=== PATIENT | female | born 1940 | race Caucasian/White ===

== ENCOUNTER 2017-11-06 13:20 | Emergency (ER) | payer MEDICARE ==
--- OUTSIDE RECORDS SUMMARY | 2017-11-06 14:36 | XMS REPORT ---
:1940 External Reference #:[id number] Author Organization [employer] [facility] Address [address] [address] Phone [phone] Care Team Providers Name Role Phone Lea Kennedy MD Primary Care Physician Unavailable Payers Type Date Identification Payment Subscriber Numbers Provider Health Maintenance Expires: Policy Number: Medicare [employer] ([facility] [place] 11/16/2012 [id number] [facility] PayID: [id number] [address] [address] [place] [id number] Health Maintenance Effective: Policy Number: Medicare [employer] ([employer]) 11/17/2012 [id number] [facility] Group Number: [id number] [address] [address] PayID: [id number] [place] [id number] Problems Date Description Provider Status Onset: 03/04/2012 Morbid obesity Dom Dotson M.D. Active Onset: 03/04/2012 Dyspnea Dom Dotson M.D. Active Onset: 03/10/2014 Mitral valve disorder Dom Dotson M.D. Active Onset: 03/10/2014 Coronary atherosclerosis Dom Dotson M.D. Active Onset: 09/26/2015 Essential hypertension Dom Dotson M.D. Active Onset: 04/02/2017 Encounter for planned Hector Watkins M.D., [facility], Active postprocedural wound closure [facility] Onset: 03/04/2012 Dyssomnia Dom Dotson M.D. Inactive Inactive: 09/26/2015 Onset: 03/04/2012 Benign essential hypertension Dom Dotson M.D. Inactive Inactive: 09/26/2015 Social History Type Date Description Comments Marital Status Lives With Alone Occupation Retired Cigarette Use Former Cigarette Smoker Smoked for one year, then quit. ETOH Use Denies alcohol use Smoking Patient is a former smoker for a few years in teenage years Recreational Drug Use Denies Drug Use Daily Caffeine 4 cups of iced/hot decaff tea daily Exercise Type/Frequency Exercises sporadically Allergies, Adverse Reactions, Alerts Date Description Reaction Status Severity Comments 08/17/2010 Tetracycline active 08/17/2010 Cipro active 08/17/2010 Niacin active 08/17/2010 Amoxicillin active 08/17/2010 Biaxin active 08/17/2010 Codeine active 08/17/2010 Ceftin active 08/17/2010 Primaxin active 08/17/2010 Zithromax active 08/17/2010 Gentamicin active 02/06/2011 Lisinopril cough active 07/01/2011 Pravastatin myalgias active 07/01/2011 Zocor active myalgias fatigue 10/16/2015 Carvedilol Nausea and Vomiting active Medications Medication Date Status Form Strength Qnty SIG Indications Ordering Provider Rosuvastatin 10/14 Active Tablets 5mg 30tab 1 tab by E78.5 Dom s mouth 5 mg F. Mon, Fri, Fri Nila, in pm only M.D. Oxygen 07/09 Active Misc 1unit please use o2 s at 2l/min [place], with MD hanna, pls provide pt with portable O2 concentrator Advair HFA 07/02 Active Aerosol 115-21mcg 24uni 2 puff twice Tessa /2017 /Act ts a day MD [place] Labetalol HCL 04/03 Active Tablets 100mg 60tab 1/2 by mouth Dom s twice a day Ellen Dotson M.D. Inspra 10/21 Active Tablets 25mg 60tab 1 by mouth I10 Dom s twice a day Ellen Dotson M.D. Aspir-81 08/[address] 81mg 30tab 1 po qd s FKamille Dotson M.D. Advair Diskus Active Aerosol 100-50mcg 1unit 1 inhalation Unknown / /Dose s twice daily as needed Levalbuterol Active Nebulizer 1.25mg/3M Via nebulizer Unknown HCL / L every 4-6 hoursas needed Diltiazem HCL Active Caps ER 120mg 90cap 1 cap by Dom ER Coated Beads / 24HR s mouth twice a . day Qiana Dotson Albuterol Active as needed Unknown Sulfate Inhaler / rescue inhaler Nitro-Dur 03/18 Hx Patches 0.2mg/HR 30uni 1 patch every 24HR ts day on in the F. - in the [place], 04/02 morning, off .D in the at night Inspra 10/16 Hx Tablets 25mg 180ta 2 by mouth I1 bs every . - day(patient Nila, 10/21 cut Inspra back to 1 daily) Metoprolol 10/10 Hx Tablets 25mg 180ta 1 by mouth Dom Tartrate bs twice a day F. - Nila, 10/09.D Toprol XL 10/10 Hx Tablets ER 25mg 90tab 1 tab once a 24HR s day F. - Nila, 04/03 M.D. Carvedilol 09/26 Hx Tablets 6.25mg 180ta 1 by mouth I10 bs twice a day F. - Nila, 10/06 M.D. Diltiazem HCL 03/10 Hx Caps ER 360mg 1 by mouth Dom CD 24HR every day F. - Nila, 03/10 M.D. Diltiazem HCL 03/10 Hx Caps ER 120mg 100ca 2 by mouth Dom ER 24HR ps each morning F. - and one each Causeshanna, 09/25 evening M.D. Albuterol 01/20 Hx Nebulizer (2.5mg/3M 100un 1 vial via Other L) 0.083% its nebulizer 4 Ordering - times daily Provider 09/25 as needed Diltiazem CD 08/05 Hx Caps ER 120mg 100ca 2 po qam 24HR ps Ellen Dotson, 03/10 M.D. Diltiazem CD 03/04 Hx Caps ER 120mg 1 po bid 24HR Ellen Dotson, 08/05 M.D. Spironolactone 03/04 Hx Tablets 25mg 90tab 1 po qd s Kamille Dotson, 08/05 M.D. Toprol XL 11/15 Hx Tablets ER 25mg 100ta 1 by mouth I10 24HR bs twice a day Ellen Dotson, 09/26 M.D. Losartan 08/05 Hx Tablets 25mg 100ta 1 po daily bs Ellen Dotson, 11/13 M.D. Losartan 07/01 Hx Tablets 50mg 60tab s Kamille Dotson, 08/05 M.D. Losartan 06/13 Hx Tablets 50mg 1 po qd . Fan Dotson, 07/01 M.D. Diltiazem CD 06/06 Hx Caps ER 120mg 90cap 2 po qam and 24HR s 1 qpm Ellen Dotson, 03/04 M.D. Losartan 06/06 Hx Tablets 25mg 30tab one po qd s . Fan Dotson, 06/13 M.D. Pravachol 05/21 Hx Tablets 10mg 30tab 1 po qd s . - Nial, 06/06 M.D. Lipitor 05/02 Hx Tablets 10mg 15tab 1/2 tablet s po qhs . Fan Dotson, 05/21 M.D. Diltiazem CD 04/11 Hx Caps ER 120mg 60cap 2 po qd 24HR s Kamille Dotson, 04/11 M.D. Zocor 04/11 Hx Tablets 10mg 60tab 2 po qhs s Ellen Dotson, 04/11 M.D. Losartan 04/11 Hx Tablets 50mg 100ta 1 po qd bs Ellen Dotson, 06/06.D Diltiazem CD 04/11 Hx Caps ER 120mg 180ca 2 tabs in the 24HR ps am Ellen Dotson, 06/06.D Zocor 02/06 Hx Tablets 10mg 30tab 1 po hs s Ellen Dotson, 04/11. Losartan 02/06 Hx Tablets 50mg 100ta 1 po qd bs Ellen Dotson, 04/11.D Lisinopril 01/25 Hx Tablets 5mg 30tab 1 po qd s Ellen Dotson, 02/06.D Diltiazem CD 08/24 Hx Caps ER 120mg 30cap 1 po qd 24HR s Ellen Dotson, 04/11.D Avapro 08/17 Hx Tablets 75mg 30tab 1 po qa s Ellen Dotson, 08/24. Norvasc Hx Tablets 5mg 30tab 1 po qd Unknown /0000 s - 08/24 Xponex Inhaler Hx use as Unknown /0000 directed - 09/[address] 40mg 100ta 1 po qd prn Unknown /0000 bs - 09/21 Xopenex Hx Nebulizer 1Mont 1 vial via Unknown /0000 Garvey nebulizer - inhalation 01/20 tid prn /2012 Vital Signs Date Vital Result Comment 10/14/2017 Height 67 inches 5'7" Weight 227.75 lb with shoes Heart Rate 70 /min BP Systolic Sitting 138 mmHg Lue lg cuff BP Diastolic Sitting 80 mmHg Lue lg cuff BP Systolic Standing 130 mmHg Lue lg cuff BP Diastolic Standing 80 mmHg Lue lg cuff Respiratory Rate 17 /min BMI (Body Mass Index) 35.7 kg/m2 Ejection Fraction 60-65% date 06/30/17 ECHO 09/02/2017 Height 67 inches 5'7" Weight 237.00 lb with shoes Heart Rate 70 /min BP Systolic Sitting 180 mmHg LA reg cuff BP Diastolic Sitting 96 mmHg LA reg cuff BMI (Body Mass Index) 37.1 kg/m2 Ejection Fraction 60%-65% echo 06/30/17 07/29/2017 Height 67 inches 5'7" Weight 242.00 lb Heart Rate 84 /min BP Systolic Sitting 124 mmHg BP Diastolic Sitting 68 mmHg Respiratory Rate 16 /min Pain Level 0 O2 % BldC Oximetry 95 % BMI (Body Mass Index) 37.9 kg/m2 06/23/2017 Height 67 inches 5'7" Weight 242.00 lb Heart Rate 76 /min BP Systolic Sitting 166 mmHg BP Diastolic Sitting 94 mmHg Respiratory Rate 20 /min O2 % BldC Oximetry 95 % room air BMI (Body Mass Index) 37.9 kg/m2 Neck Circumference in inches 16.25 06/12/2017 Height 67 inches 5'7" Weight 239.00 lb no shoe Heart Rate 68 /min BP Systolic Sitting 144 mmHg BP Diastolic Sitting 82 mmHg Respiratory Rate 20 /min BMI (Body Mass Index) 37.4 kg/m2 Ejection Fraction 60-65% 10/23/2016-echo 04/07/2017 Height 67 inches 5'7" Weight 242.25 lb Heart Rate 86 /min BP Systolic 161 mmHg LA home cuff BP Diastolic 75 mmHg LA home cuff BP Systolic Sitting 160 mmHg LA lrg office cuff BP Diastolic Sitting 72 mmHg LA lrg office cuff BMI (Body Mass Index) 37.9 kg/m2 Ejection Fraction 65% - 70% cardiac catheterization 03/28/17 04/02/2017 Height 67 inches 5'7" Weight 241.00 lb w/o shoes Heart Rate 70 /min reg BP Systolic Sitting 200 mmHg Rue, reg cuff BP Diastolic Sitting 100 mmHg Rue, reg cuff BP Systolic Standing 204 mmHg Rue BP Diastolic Standing 104 mmHg Rue Respiratory Rate 14 /min BMI (Body Mass Index) 37.7 kg/m2 Ejection Fraction 60-65% as of 10/23/16 echo 12/24/2016 Height 67 inches 5'7" Weight 231.00 lb with out shoes Heart Rate 80 /min BP Systolic Sitting 140 mmHg Lue lg cuff BP Diastolic Sitting 70 mmHg Lue lg cuff BP Systolic Standing 138 mmHg Lue lg cuff BP Diastolic Standing 76 mmHg Lue lg cuff Respiratory Rate 17 /min BMI (Body Mass Index) 36.2 kg/m2 Ejection Fraction 60-65% date 10/23/16 ECHO 12/03/2016 Height 67 inches 5'7" Weight 231.00 lb Heart Rate 84 /min BP Systolic Sitting 178 mmHg LA large cuff BP Diastolic Sitting 86 mmHg LA large cuff BP Systolic Standing 178 mmHg LA BP Diastolic Standing 86 mmHg LA Respiratory Rate 16 /min BMI (Body Mass Index) 36.2 kg/m2 Ejection Fraction 60-65% 10/23/16 10/21/2016 Height 67 inches 5'7" Weight 228.50 lb no shoes Heart Rate 86 /min BP Systolic Sitting 154 mmHg Rue lrg cuff BP Diastolic Sitting 84 mmHg Rue lrg cuff BP Systolic Standing 160 mmHg Rue lrg cuff BP Diastolic Standing 86 mmHg Rue lrg cuff Respiratory Rate 20 /min BMI (Body Mass Index) 35.8 kg/m2 Ejection Fraction 60-65% 03/18/2014 04/16/2016 Height 67 inches 5'7" Weight 233.00 lb w/ shoes Heart Rate 18 /min reg BP Systolic Sitting 162 mmHg Rue, reg cuff BP Diastolic Sitting 86 mmHg Rue, reg cuff BP Systolic Standing 166 mmHg Rue BP Diastolic Standing 86 mmHg Rue Respiratory Rate 24 /min BMI (Body Mass Index) 36.5 kg/m2 Ejection Fraction 60-65% as of 03/18/14 echo 01/03/2016 Height 67 inches 5'7" Weight 234.00 lb w/o shoes Heart Rate 84 /min BP Systolic Sitting 152 mmHg LA reg cuff BP Diastolic Sitting 82 mmHg LA reg cuff BMI (Body Mass Index) 36.6 kg/m2 Ejection Fraction 60-65 echo 03/18/14 12/04/2015 Height 67 inches 5'7" Weight 234.00 lb no shoes Heart Rate 82 /min BP Systolic Sitting 186 mmHg Ra reg cuff BP Diastolic Sitting 88 mmHg Ra reg cuff BP Systolic Standing 182 mmHg BP Diastolic Standing 86 mmHg Respiratory Rate 16 /min BMI (Body Mass Index) 36.6 kg/m2 Ejection Fraction 60-65% 03/18/14 11/01/2015 Height 67 inches 5'7" Weight 234.00 lb Heart Rate 84 /min BP Systolic 188 mmHg Ra large cuff BP Diastolic 94 mmHg Ra large cuff BP Systolic Sitting 174 mmHg LA large cuff recheck BP Diastolic Sitting 88 mmHg LA large cuff recheck BP Systolic Standing 166 mmHg LA BP Diastolic Standing 82 mmHg LA Respiratory Rate 16 /min BMI (Body Mass Index) 36.6 kg/m2 Ejection Fraction 60-65% 03/18/14 10/16/2015 Height 67 inches 5'7" Weight 231.00 lb w/o shoes Heart Rate 80 /min reg BP Systolic Sitting 156 mmHg Rue, lg cuff BP Diastolic Sitting 90 mmHg Rue, lg cuff BP Systolic Standing 154 mmHg Rue BP Diastolic Standing 88 mmHg Rue Respiratory Rate 18 /min BMI (Body Mass Index) 36.2 kg/m2 Ejection Fraction 60-65% as of 03/18/14 echo 09/26/2015 Height 67 inches 5'7" Weight 228.75 lb without shoes Heart Rate 72 /min BP Systolic Sitting 172 mmHg LA lg cuff BP Diastolic Sitting 86 mmHg LA lg cuff Respiratory Rate 17 /min BMI (Body Mass Index) 35.8 kg/m2 Ejection Fraction 60-65% date 03/18/14 ECHO 03/10/2014 Height 67 inches 5'7" Weight 234.00 lb Heart Rate 76 /min BP Systolic Sitting 158 mmHg left arm, large cuff BP Diastolic Sitting 90 mmHg left arm, large cuff BP Systolic Standing 160 mmHg left arm, large cuff BP Diastolic Standing 90 mmHg left arm, large cuff Respiratory Rate 20 /min BMI (Body Mass Index) 36.6 kg/m2 10/21/2013 Height 67 inches 5'7" Weight 234.00 lb Heart Rate 1 /min BP Systolic Sitting 180 mmHg repeat 148/94 BP Diastolic Sitting 94 mmHg repeat 148/94 BMI (Body Mass Index) 36.6 kg/m2 01/20/2013 Height 67 inches 5'7" Weight 228.00 lb Heart Rate 74 /min BP Systolic 150 mmHg BP Diastolic 82 mmHg Respiratory Rate 18 /min O2 % BldC Oximetry 94 % BMI (Body Mass Index) 35.7 kg/m2 09/07/2012 Height 67 inches 5'7" Weight 229.00 lb Heart Rate 76 /min Regular BP Systolic Sitting 170 mmHg BP Diastolic Sitting 80 mmHg BP Systolic Recheck 150 mmHg BP rechecked by HASHER MACHINE OPERATOR BP Diastolic Recheck 76 mmHg BP rechecked by HASHER MACHINE OPERATOR BMI (Body Mass Index) 35.9 kg/m2 08/05/2012 Height 67 inches 5'7" Weight 229.00 lb Heart Rate 80 /min BP Systolic Sitting 208 mmHg BP Diastolic Sitting 104 mmHg Respiratory Rate 20 /min BMI (Body Mass Index) 35.9 kg/m2 04/01/2012 Height 67 inches 5'7" Weight 228.00 lb Heart Rate 88 /min regular BP Systolic Sitting 158 mmHg BP Diastolic Sitting 90 mmHg BP Systolic Recheck 148 mmHg Pulse 72 and regular/repeated by HASHER MACHINE OPERATOR BP Diastolic Recheck 70 mmHg Pulse 72 and regular/repeated by HASHER MACHINE OPERATOR BMI (Body Mass Index) 35.7 kg/m2 03/04/2012 Height 67 inches 5'7" Weight 231.00 lb Heart Rate 74 /min BP Systolic 170 mmHg BP Diastolic 70 mmHg Respiratory Rate 16 /min BMI (Body Mass Index) 36.2 kg/m2 11/08/2011 Height 67 inches 5'7" Weight 226.00 lb Heart Rate 76 /min BP Systolic 154 mmHg BP Diastolic 82 mmHg BMI (Body Mass Index) 35.4 kg/m2 07/01/2011 Height 67 inches 5'7" Weight 225.00 lb Heart Rate 80 /min BP Systolic Sitting 166 mmHg BP Diastolic Sitting 70 mmHg BP Systolic Standing 156 mmHg HR=80 BP Diastolic Standing 74 mmHg HR=80 BMI (Body Mass Index) 35.2 kg/m2 04/11/2011 Height 67 inches 5'7" Weight 228.00 lb Heart Rate 76 /min BP Systolic Sitting 184 mmHg BP Diastolic Sitting 76 mmHg BMI (Body Mass Index) 35.7 kg/m2 01/25/2011 Height 67 inches 5'7" Weight 228.00 lb Heart Rate 72 /min BP Systolic Sitting 184 mmHg BP Diastolic Sitting 70 mmHg BMI (Body Mass Index) 35.7 kg/m2 09/04/2010 Height 67 inches 5'7" Weight 240.00 lb Heart Rate 84 /min BP Systolic Sitting 198 mmHg BP Diastolic Sitting 88 mmHg BMI (Body Mass Index) 37.6 kg/m2 08/17/2010 Height 67 inches 5'7" Weight 241.00 lb Heart Rate 78 /min BP Systolic Sitting 164 mmHg L BP Diastolic Sitting 98 mmHg L O2 % BldC Oximetry 96 % BMI (Body Mass Index) 37.7 kg/m2 Results Test Date Test Result H/L Range Note Cath Panel 03/26/2017 Partial Thrombo Time PTT 30.0 seconds 26.0-36.3 CBC Auto Diff 03/26/2017 White Blood Count 7.8 10^3/uL 3.5-10.8 Red Blood Count 4.98 10^6/uL 4.0-5.4 Hemoglobin 14.9 g/dL 12.0-16.0 Hematocrit 46 % 35-47 Mean Corpuscular Volume 91 fL 80-97 Mean Corpuscular Hemoglobin 30 pg 27-31 Mean Corpuscular HGB Conc 33 g/dL 31-36 Red Cell Distribution Width 13 % 10.5-15 Platelet Count 275 10^3/uL 150-450 Mean Platelet Volume 9 um3 7.4-10.4 Abs Neutrophils 4.2 10^3/uL 1.5-7.7 Abs Lymphocytes 2.3 10^3/uL 1.0-4.8 Abs Monocytes 1.0 10^3/uL High 0-0.8 Abs Eosinophils 0.4 10^3/uL 0-0.6 Abs Basophils 0.1 10^3/uL 0-0.2 Abs Nucleated RBC 0.03 10^3/uL Granulocyte % 53.0 % 38-83 Lymphocyte % 28.9 % 25-47 Monocyte % 12.4 % High 1-9 Eosinophil % 5.0 % 0-6 Basophil % 0.7 % 0-2 Nucleated Red Blood Cells % 0.4 Inr/Protime 03/26/2017 Inr 0.96 0.89-1.11 Laboratory test finding 03/26/2017 B-Type Natriuretic 68 pg/mL 1 Peptide BNP Lipid Panel - [facility] 03/26/2017 Creatine Kinase(CK) 68 U/L 10-223 2 Comp Metabolic Panel 03/26/2017 Sodium 139 mmol/L 133-145 Potassium 4.4 mmol/L 3.5-5.0 Chloride 105 mmol/L 101-111 Co2 Carbon Dioxide 28 mmol/L 22-32 Anion Gap 6 mmol/L 2-11 Glucose 94 mg/dL 70-100 Blood Urea Nitrogen 15 mg/dL 6-24 Creatinine 0.57 mg/dL 0.51-0.95 BUN/Creatinine Ratio 26.3 High 8-20 Calcium 9.6 mg/dL 8.6-10.3 Total Protein 7.3 g/dL 6.4-8.9 Albumin 4.1 g/dL 3.2-5.2 Globulin 3.2 g/dL 2-4 Albumin/Globulin Ratio 1.3 1-3 Total Bilirubin 1.70 mg/dL High 0.2-1.0 Alkaline Phosphatase 65 U/L 34-104 Alt 26 U/L 7-52 Ast 27 U/L 13-39 Egfr Non- 102.8 >60 Egfr 132.3 >60 3 Lipid Profile (Trig/Chol/HDL) 03/26/2017 Triglycerides 76 mg/dL 4 Cholesterol 146 mg/dL 5 HDL Cholesterol 44.4 mg/dL 6 LDL Cholesterol 86 mg/dL 7 Laboratory test finding 10/29/2016 B-Type Natriuretic 53 pg/mL 8 Peptide BNP CBC Auto Diff 10/29/2016 White Blood Count 8.0 10^3/uL 3.5-10.8 Red Blood Count 4.84 10^6/uL 4.0-5.4 Hemoglobin 14.5 g/dL 12.0-16.0 Hematocrit 44 % 35-47 Mean Corpuscular Volume 91 fL 80-97 Mean Corpuscular Hemoglobin 30 pg 27-31 Mean Corpuscular HGB Conc 33 g/dL 31-36 Red Cell Distribution Width 13 % 10.5-15 Platelet Count 272 10^3/uL 150-450 Mean Platelet Volume 9 um3 7.4-10.4 Abs Neutrophils 4.6 10^3/uL 1.5-7.7 Abs Lymphocytes 2.2 10^3/uL 1.0-4.8 Abs Monocytes 1.0 10^3/uL High 0-0.8 Abs Eosinophils 0.2 10^3/uL 0-0.6 Abs Basophils 0 10^3/uL 0-0.2 Abs Nucleated RBC 0.01 10^3/uL Granulocyte % 57.1 % 38-83 Lymphocyte % 26.8 % 25-47 Monocyte % 12.5 % High 1-9 Eosinophil % 3.1 % 0-6 Basophil % 0.5 % 0-2 Nucleated Red Blood Cells % 0.1 Lipid Panel - [facility] 10/29/2016 Creatine Kinase(CK) 59 U/L 10-223 9 Comp Metabolic Panel 10/29/2016 Sodium 138 mmol/L 133-145 Potassium 4.3 mmol/L 3.5-5.0 Chloride 104 mmol/L 101-111 Co2 Carbon Dioxide 30 mmol/L 22-32 Anion Gap 4 mmol/L 2-11 Glucose 94 mg/dL 70-100 Blood Urea Nitrogen 15 mg/dL 6-24 Creatinine 0.64 mg/dL 0.51-0.95 BUN/Creatinine Ratio 23.4 High 8-20 Calcium 9.8 mg/dL 8.6-10.3 Total Protein 7.2 g/dL 6.4-8.9 Albumin 4.1 g/dL 3.2-5.2 Globulin 3.1 g/dL 2-4 Albumin/Globulin Ratio 1.3 1-3 Total Bilirubin 1.80 mg/dL High 0.2-1.0 Alkaline Phosphatase 64 U/L 34-104 Alt 23 U/L 7-52 Ast 23 U/L 13-39 Egfr Non- 90.2 >60 Egfr 116.0 >60 10 Lipid Profile (Trig/Chol/HDL) 10/29/2016 Triglycerides 82 mg/dL 11 Cholesterol 141 mg/dL 12 HDL Cholesterol 48.1 mg/dL 13 LDL Cholesterol 77 mg/dL 14 Laboratory test finding 10/29/2016 Magnesium 2.0 mg/dL 1.9-2.7 15 Basic Metabolic Panel 05/07/2016 Sodium 140 mmol/L 133-145 Potassium 4.1 mmol/L 3.5-5.0 Chloride 108 mmol/L 101-111 Co2 Carbon Dioxide 25 mmol/L 22-32 Anion Gap 7 mmol/L 2-11 Glucose 89 mg/dL 70-100 Blood Urea Nitrogen 15 mg/dL 6-24 Creatinine 0.63 mg/dL 0.51-0.95 BUN/Creatinine Ratio 23.8 High 8-20 Calcium 9.4 mg/dL 8.6-10.3 Egfr Non- 91.9 >60 Egfr 118.2 >60 16 Basic Metabolic Panel 01/01/2016 Sodium 139 mmol/L 133-145 Chloride 105 mmol/L 101-111 Co2 Carbon Dioxide 26 mmol/L 22-32 Glucose 117 mg/dL High 70-100 Blood Urea Nitrogen 16 mg/dL 6-24 Creatinine 0.65 mg/dL 0.51-0.95 BUN/Creatinine Ratio 24.6 High 8-20 Calcium 9.6 mg/dL 8.6-10.3 Egfr Non- 88.6 >60 Egfr 114.0 >60 17 Potassium 4.2 mmol/L 3.5-5.0 Anion Gap 8 mmol/L 2-11 Basic Metabolic Panel 10/28/2015 Sodium 139 mmol/L 133-145 18 Potassium 4.1 mmol/L 3.5-5.0 18 Chloride 107 mmol/L 101-111 18 Co2 Carbon Dioxide 26 mmol/L 22-32 18 Anion Gap 6 mmol/L 2-11 18 Glucose 83 mg/dL 70-100 18 Blood Urea Nitrogen 18 mg/dL 6-24 18 Creatinine 0.59 mg/dL 0.51-0.95 18 BUN/Creatinine Ratio 30.5 High 8-20 18 Calcium 9.5 mg/dL 8.6-10.3 18 Egfr Non- 99.4 >60 18 Egfr 127.8 >60 18, 19 Comp Metabolic Panel 11/16/2013 Sodium 140 mmol/L 133-145 Potassium 4.3 mmol/L 3.5-5.0 Chloride 109 mmol/L 101-111 Co2 Carbon Dioxide 29.0 mmol/L 22-32 Anion Gap 2.0 mmol/L 2-11 Glucose 99 mg/dL 70-100 Blood Urea Nitrogen 11 mg/dL 6-24 Creatinine 0.60 mg/dL 0.50-1.40 BUN/Creatinine Ratio 18.3 8-20 Calcium 9.4 mg/dL 8.1-9.9 Total Protein 6.3 g/dL 6.2-8.1 Albumin 3.7 g/dL 3.2-5.2 Globulin 2.6 g/dL 2-4 Albumin/Globulin Ratio 1.4 1-3 Total Bilirubin 1.7 mg/dL High 0.4-1.5 Alkaline Phosphatase 71 U/L 30-110 Alt 31 U/L 14-54 Ast 37 U/L 12-42 Egfr Non- 98.0 >60 Egfr 126.0 >60 20 Laboratory test finding 11/16/2013 B Type Natriuretic 70.0 pg/mL 0-100 21 Peptide CBC Auto Diff 11/16/2013 White Blood Count 7.3 10^3/uL 4.8-10.8 Red Blood Count 4.52 10^6/uL 4.0-5.4 Hemoglobin 14.1 g/dL 12.0-16.0 Hematocrit 41 % 35-47 Mean Corpuscular Volume 91 fL 80-97 Mean Corpuscular Hemoglobin 31 pg 27-31 Mean Corpuscular HGB Conc 34 g/dL 31-36 Red Cell Distribution Width 13 % 10.5-15 Platelet Count 260 10^3/uL 150-450 Mean Platelet Volume 9 um3 7.4-10.4 Abs Neutrophils 3.9 10^3/uL 1.5-7.7 Abs Lymphocytes 2.0 10^3/uL 1.0-4.8 Abs Monocytes 0.9 10^3/uL High 0-0.8 Abs Eosinophils 0.4 10^3/uL 0-0.6 Abs Basophils 0.1 10^3/uL 0-0.2 Abs Nucleated RBC 0.01 10^3/uL Granulocyte % 53.1 % 38-83 Lymphocyte % 28.2 % 25-47 Monocyte % 12.6 % High 1-9 Eosinophil % 5.3 % 0-6 Basophil % 0.8 % 0-2 Nucleated Red Blood Cells % 0.1 Laboratory test finding 04/30/2013 Creatine Kinase 66 U/L 0-200 Lipid Profile (Trig/Chol/HDL) 04/30/2013 Triglycerides 103 mg/dL 40-200 Cholesterol 144 mg/dL Less than 200 HDL Cholesterol 42 mg/dL 40-60 22 Cholesterol/HDL Ratio 3.4 Average 1-4.44 LDL Cholesterol 81.4 Less Than 100 23 Comp Metabolic Panel 04/30/2013 Sodium 142 mmol/L 133-145 Potassium 4.2 mmol/L 3.5-5.0 Chloride 108 mmol/L 101-111 Co2 Carbon Dioxide 27.0 mmol/L 22-32 Anion Gap 7.0 mmol/L 2-11 Glucose 100 mg/dL 70-100 Blood Urea Nitrogen 12 mg/dL 6-24 Creatinine 0.60 mg/dL 0.50-1.40 BUN/Creatinine Ratio 20.0 8-20 Calcium 9.6 mg/dL 8.1-9.9 Total Protein 6.9 g/dL 6.2-8.1 Albumin 3.9 g/dL 3.2-5.2 Globulin 3.0 g/dL 2-4 Albumin/Globulin Ratio 1.3 1-3 Total Bilirubin 1.9 mg/dL High 0.4-1.5 Alkaline Phosphatase 71 U/L 30-110 Alt 34 U/L 14-54 Ast 36 U/L 12-42 Egfr Non- 98.0 >60 Egfr 126.0 >60 24 CBC Auto Diff 03/20/2012 White Blood Count 7.1 CUMM 4.8-10.8 Red Cell Count 4.41 CUMM 4.2-5.4 Hemoglobin 14.0 g/dL 12.0-16.0 Hematocrit 40 % 35-47 Mean Corpuscular Volume 91 um3 79-97 Mean Corpuscular Hemoglob 32 pg High 27-31 Mean Corpuscular HGB Cone 35 g/dL 32-36 Redcell Distribution WDTH 13 % 10.5-15 Platelet Count 265 CUMM 150-450 Mean Platelet Volume 9.3 um3 7.4-10.4 Gran % 53.8 % 38-83 Lymph % 28.8 % 25-47 Mononuclear % 11.2 % High 1-9 Eosinophil % 5.5 % 0-6 Basophil % 0.7 % 0-2 Abs Lymphs 2.1 1.0-4.8 Abs Mononuclear 0.8 0-0.8 Absolute Neutrophil Count 3.8 1.5-7.7 Abs Eosinophils 0.4 0-0.6 Abs Basophils 0 0-0.2 Laboratory test finding 03/20/2012 TSH 1.47 MIU/ML 0.34-5.60 Laboratory test finding 03/20/2012 CPK (Creatine Kinase) 93 U/L 0-170 Vitamin B12 And Folate 03/20/2012 Vitamin B12 180 pg/mL 180-914 Serum Folic Acid > 25.6 NG/ML See Below 25 Lipid Profile (Trig/Chol/HDL) 03/20/2012 Triglyceride 102 mg/dL 40-200 Cholesterol 152 mg/dL Less Than 200 26 High Density Lipoprotein 39 mg/dL Low 40-60 27 Cholesterol/HDL Ratio 3.90 AVERAGE 1-4.44 Low Density Lipoprotein 93 mg/dL Less Than 100 28 Comp Metabolic Panel 03/20/2012 Sodium 140 mmol/L 135-145 Potassium 4.0 mmol/L 3.5-5.0 Chloride 108 mmol/L 101-111 Co2 (Carbon Dioxide) 28.0 mmol/L 22-32 Anion Gap 4.0 mmol/L 2-11 29 Glucose 103 mg/dL High 70-100 BUN 12 mg/dL 6-24 Creatinine 0.6 mg/dL 0.50-1.40 One Over Creatinine 1.66 BUN/Creatinine Ratio 20.0 8-20 Calcium 9.4 mg/dL 8.1-9.9 Total Protein 6.9 GM/DL 6.2-8.1 Albumin 4.1 GM/DL 3.2-5.2 Globulin 2.8 GM/DL 2-4 Albumin/Globulin Ratio 1.5 1-3 Bilirubin Total 2.3 mg/dL High 0.4-1.5 30 Alkaline Phosphatase 67 U/L 30-110 Alt (SGPT) 28 U/L 14-54 Ast (Sgot) 29 U/L 12-42 eGFR Non- 98.3 > 60 eGFR 126.4 > 60 31 Lipid Panel - [facility] 06/28/2011 CPK (Creatine Kinase) 58 U/L 0-170 Comp Metabolic Panel 06/28/2011 Sodium 142 mmol/L 135-145 Potassium 4.8 mmol/L 3.5-5.0 Chloride 106 mmol/L 101-111 Co2 (Carbon Dioxide) 30.0 mmol/L 22-32 Anion Gap 6.0 mmol/L 2-11 32 Glucose 98 mg/dL 70-100 BUN 16 mg/dL 6-24 Creatinine 0.70 mg/dL 0.50-1.40 One Over Creatinine 1.40 BUN/Creatinine Ratio 22.9 High 8-20 Calcium 9.8 mg/dL 8.1-9.9 Total Protein 7.1 GM/DL 6.2-8.1 Albumin 4.0 GM/DL 3.2-5.2 Globulin 3.1 GM/DL 2-4 Albumin/Globulin Ratio 1.3 1-3 Bilirubin Total 1.9 mg/dL High 0.4-1.5 33 Alkaline Phosphatase 73 U/L 30-110 Alt (SGPT) 25 U/L 14-54 Ast (Sgot) 27 U/L 12-42 eGFR Non- 82.5 > 60 eGFR 106.1 > 60 34 Lipid Profile (Trig/Chol/HDL) 06/28/2011 Triglyceride 107 mg/dL 40-200 Cholesterol 153 mg/dL Less Than 200 35 High Density Lipoprotein 40 mg/dL 40-60 36 Cholesterol/HDL Ratio 3.83 AVERAGE 1-4.44 Low Density Lipoprotein 92 mg/dL Less Than 100 37 Lipid Profile (Trig/Chol/HDL) 04/08/2011 Triglyceride 71 mg/dL 40-200 Cholesterol 164 mg/dL Less Than 200 38 High Density Lipoprotein 46 mg/dL 40-60 39 Cholesterol/HDL Ratio 3.57 AVERAGE 1-4.44 Low Density Lipoprotein 104 mg/dL High Less Than 100 40 Comp Metabolic Panel 04/08/2011 Sodium 140 mmol/L 135-145 Potassium 4.1 mmol/L 3.5-5.0 Chloride 106 mmol/L 101-111 Co2 (Carbon Dioxide) 27.0 mmol/L 22-32 Anion Gap 7.0 mmol/L 2-11 41 Glucose 90 mg/dL 70-100 BUN 16 mg/dL 6-24 Creatinine 0.60 mg/dL 0.50-1.40 One Over Creatinine 1.60 BUN/Creatinine Ratio 26.7 High 8-20 Calcium 9.2 mg/dL 8.1-9.9 Total Protein 6.8 GM/DL 6.2-8.1 Albumin 4.1 GM/DL 3.2-5.2 Globulin 2.7 GM/DL 2-4 Albumin/Globulin Ratio 1.5 1-3 Bilirubin Total 2.1 mg/dL High 0.4-1.5 42 Alkaline Phosphatase 70 U/L 30-110 Alt (SGPT) 28 U/L 14-54 Ast (Sgot) 31 U/L 12-42 eGFR Non- 98.5 > 60 eGFR 126.7 > 60 43 Lipid Panel - [facility] 04/08/2011 CPK (Creatine Kinase) 77 U/L 0-170 CBC Auto Diff 02/05/2011 White Blood Count 8.4 CUMM 4.8-10.8 Red Cell Count 4.37 CUMM 4.2-5.4 Hemoglobin 13.8 g/dL 12.0-16.0 Hematocrit 41 % 35-47 Mean Corpuscular Volume 93 um3 79-97 Mean Corpuscular Hemoglob 32 pg High 27-31 Mean Corpuscular HGB Cone 34 g/dL 32-36 Redcell Distribution WDTH 13 % 10.5-15 Platelet Count 265 CUMM 150-450 Mean Platelet Volume 9.6 um3 7.4-10.4 Gran % 55.1 % 38-83 Lymph % 28.8 % 25-47 Mononuclear % 11.8 % High 1-9 Eosinophil % 3.6 % 0-6 Basophil % 0.7 % 0-2 Abs Lymphs 2.4 1.0-4.8 Abs Mononuclear 1.0 High 0-0.8 Absolute Neutrophil Count 4.7 1.5-7.7 Abs Eosinophils 0.3 0-0.6 Abs Basophils 0.1 0-0.2 Laboratory test finding 02/05/2011 CPK (Creatine Kinase) 55 U/L 0-170 Lipid Profile (Trig/Chol/HDL) 02/05/2011 Triglyceride 110 mg/dL 40-200 Cholesterol 168 mg/dL Less Than 200 44 High Density Lipoprotein 48 mg/dL 40-60 45 Cholesterol/HDL Ratio 3.50 AVERAGE 1-4.44 Low Density Lipoprotein 98 mg/dL Less Than 100 46 Comp Metabolic Panel 02/05/2011 Sodium 140 mmol/L 135-145 Potassium 4.1 mmol/L 3.5-5.0 Chloride 107 mmol/L 101-111 Co2 (Carbon Dioxide) 28.0 mmol/L 22-32 Anion Gap 5.0 mmol/L 2-11 47 Glucose 91 mg/dL 70-100 BUN 15 mg/dL 6-24 Creatinine 0.60 mg/dL 0.50-1.40 One Over Creatinine 1.60 BUN/Creatinine Ratio 25.0 High 8-20 Calcium 9.3 mg/dL 8.1-9.9 Total Protein 6.5 GM/DL 6.2-8.1 Albumin 4.0 GM/DL 3.2-5.2 Globulin 2.5 GM/DL 2-4 Albumin/Globulin Ratio 1.6 1-3 Bilirubin Total 1.9 mg/dL High 0.4-1.5 48 Alkaline Phosphatase 77 U/L 30-110 Alt (SGPT) 29 U/L 14-54 Ast (Sgot) 31 U/L 12-42 eGFR Non- 98.5 > 60 eGFR 126.7 > 60 49 Basic Metabolic Panel 08/29/2010 Sodium 138 mmol/L 135-145 50 Potassium 3.8 mmol/L 3.5-5.0 50 Chloride 104 mmol/L 101-111 50 Co2 (Carbon Dioxide) 27.0 mmol/L 22-32 50 Anion Gap 7.0 mmol/L 2-11 50, 51 Glucose 89 mg/dL 70-100 50, 52 BUN 9 mg/dL 6-24 50 Creatinine 0.40 mg/dL Low 0.50-1.40 50 One Over Creatinine 2.50 50 BUN/Creatinine Ratio 22.5 High 8-20 50 Calcium 9.4 mg/dL 8.1-9.9 50 eGFR Non- 167.7 > 60 50 eGFR 202.9 > 60 50, 53 Basic Metabolic Panel 08/21/2010 Sodium 141 mmol/L 135-145 Potassium 4.3 mmol/L 3.5-5.0 Chloride 107 mmol/L 101-111 Co2 (Carbon Dioxide) 29.0 mmol/L 22-32 Anion Gap 5.0 mmol/L 2-11 54 Glucose 97 mg/dL 70-100 55 BUN 11 mg/dL 6-24 Creatinine 0.51 mg/dL 0.50-1.40 One Over Creatinine 1.90 BUN/Creatinine Ratio 21.6 High 8-20 Calcium 9.4 mg/dL 8.1-9.9 eGFR Non- 126.7 > 60 eGFR 153.3 > 60 56 CBC With Manual Diff 08/21/2010 White Blood Count 8.8 CUMM 4.8-10.8 Red Cell Count 4.60 CUMM 4.2-5.4 Hemoglobin 14.8 g/dL 12.0-16.0 Hematocrit 43 % 35-47 Mean Corpuscular Volume 93 um3 79-97 Mean Corpuscular Hemoglob 32 pg High 27-31 Mean Corpuscular HGB Cone 35 g/dL 32-36 Redcell Distribution WDTH 13 % 10.5-15 Platelet Count 274 CUMM 150-450 Mean Platelet Volume 7.9 um3 7.4-10.4 Polysegmented Neutrophil 58 % 38-83 Lymphocyte 31 % 25-47 Monocyte 8 % 0-13 Eosinophil 3 % 0-6 Absolute Neutrophil Count 5.1 RBC Morphology NORMAL Cath Panel 08/21/2010 PTT (Aptt) 30.2 25.15-38.53 Protime 08/21/2010 Inr 1.04 0.82-1.17 57 Protime 12.3 SEC 10.2-14.8 58 1 >100 to <200 pg/mL: likely compensated congestive heart failure (CHF) 200 to 400 pg/mL: likely moderate CHF >400 pg/mL: likely moderate to severe CHF 2 FASTING 3 Because ethnic data is not always readily available, this report includes an eGFR for both -Americans and non- Americans. The National Kidney Disease Education Program (NKDEP) does not endorse the use of the MDRD equation for patients that are not between the ages of 18 and 70, are , have extremes of body size, muscle mass, or nutritional status, or are non- or non-. According to the National Kidney Foundation, irrespective of diagnosis, the stage of the disease is based on the level of kidney function: Stage Description GFR(mL/min/1.73 m(2)) 1 Kidney damage with normal or decreased GFR 90 2 Kidney damage with mild decrease in GFR 60-89 3 Moderate decrease in GFR 30-59 4 Severe decrease in GFR 15-29 5 Kidney failure <15 (or dialysis) 4 Desirable <150 Borderline high 150-199 High 200-499 Very High >500 5 Desirable <200 Borderline high 200-239 High >239 6 Low <40 Desirable: 40-60 High: >60 7 Desirable: <100 mg/dL Near Optimal: 100-129 mg/dL Borderline High: 130-159 mg/dL High: 160-189 mg/dL Very High: >189 mg/dL 8 >100 to <200 pg/mL: likely compensated congestive heart failure (CHF) 200 to 400 pg/mL: likely moderate CHF >400 pg/mL: likely moderate to severe CHF 9 FASTING 10 Because ethnic data is not always readily available, this report includes an eGFR for both -Americans and non- Americans. The National Kidney Disease Education Program (NKDEP) does not endorse the use of the MDRD equation for patients that are not between the ages of 18 and 70, are , have extremes of body size, muscle mass, or nutritional status, or are non- or non-. According to the National Kidney Foundation, irrespective of diagnosis, the stage of the disease is based on the level of kidney function: Stage Description GFR(mL/min/1.73 m(2)) 1 Kidney damage with normal or decreased GFR 90 2 Kidney damage with mild decrease in GFR 60-89 3 Moderate decrease in GFR 30-59 4 Severe decrease in GFR 15-29 5 Kidney failure <15 (or dialysis) 11 Desirable <150 Borderline high 150-199 High 200-499 Very High >500 12 Desirable <200 Borderline high 200-239 High >239 13 Low <40 Desirable: 40-60 High: >60 14 Desirable: <100 mg/dL Near Optimal: 100-129 mg/dL Borderline High: 130-159 mg/dL High: 160-189 mg/dL Very High: >189 mg/dL 15 FASTING 16 Because ethnic data is not always readily available, this report includes an eGFR for both -Americans and non- Americans. The National Kidney Disease Education Program (NKDEP) does not endorse the use of the MDRD equation for patients that are not between the ages of 18 and 70, are , have extremes of body size, muscle mass, or nutritional status, or are non- or non-. According to the National Kidney Foundation, irrespective of diagnosis, the stage of the disease is based on the level of kidney function: Stage Description GFR(mL/min/1.73 m(2)) 1 Kidney damage with normal or decreased GFR 90 2 Kidney damage with mild decrease in GFR 60-89 3 Moderate decrease in GFR 30-59 4 Severe decrease in GFR 15-29 5 Kidney failure <15 (or dialysis) 17 Because ethnic data is not always readily available, this report includes an eGFR for both -Americans and non- Americans. The National Kidney Disease Education Program (NKDEP) does not endorse the use of the MDRD equation for patients that are not between the ages of 18 and 70, are , have extremes of body size, muscle mass, or nutritional status, or are non- or non-. According to the National Kidney Foundation, irrespective of diagnosis, the stage of the disease is based on the level of kidney function: Stage Description GFR(mL/min/1.73 m(2)) 1 Kidney damage with normal or decreased GFR 90 2 Kidney damage with mild decrease in GFR 60-89 3 Moderate decrease in GFR 30-59 4 Severe decrease in GFR 15-29 5 Kidney failure <15 (or dialysis) 18 appt 11/01/15 19 Because ethnic data is not always readily available, this report includes an eGFR for both -Americans and non- Americans. The National Kidney Disease Education Program (NKDEP) does not endorse the use of the MDRD equation for patients that are not between the ages of 18 and 70, are , have extremes of body size, muscle mass, or nutritional status, or are non- or non-. According to the National Kidney Foundation, irrespective of diagnosis, the stage of the disease is based on the level of kidney function: Stage Description GFR(mL/min/1.73 m(2)) 1 Kidney damage with normal or decreased GFR 90 2 Kidney damage with mild decrease in GFR 60-89 3 Moderate decrease in GFR 30-59 4 Severe decrease in GFR 15-29 5 Kidney failure <15 (or dialysis) 20 Because ethnic data is not always readily available, this report includes an eGFR for both -Americans and non- Americans. The National Kidney Disease Education Program (NKDEP) does not endorse the use of the MDRD equation for patients that are not between the ages of 18 and 70, are , have extremes of body size, muscle mass, or nutritional status, or are non- or non-. According to the National Kidney Foundation, irrespective of diagnosis, the stage of the disease is based on the level of kidney function: Stage Description GFR(mL/min/1.73 m(2)) 1 Kidney damage with normal or decreased GFR 90 2 Kidney damage with mild decrease in GFR 60-89 3 Moderate decrease in GFR 30-59 4 Severe decrease in GFR 15-29 5 Kidney failure <15 (or dialysis) 21 to be drawn in early November 2013 22 HDL Interpretation: Undesirable: High Risk: Less than 40 mg/dL Desirable: Low Risk: Greater than 60 mg/dL 23 LDL Interpretation: Low Risk Optimal Level: LDL Less than 100 mg/dL Near or Above Optimal: LDL 100-129 mg/dL Borderline High Risk: LDL 130-159 mg/dL High Risk: LDL 160-189 mg/dL Very High Risk: LDL Greater than 189 mg/dL 24 Because ethnic data is not always readily available, this report includes an eGFR for both -Americans and non- Americans. The National Kidney Disease Education Program (NKDEP) does not endorse the use of the MDRD equation for patients that are not between the ages of 18 and 70, are , have extremes of body size, muscle mass, or nutritional status, or are non- or non-. According to the National Kidney Foundation, irrespective of diagnosis, the stage of the disease is based on the level of kidney function: Stage Description GFR(mL/min/1.73 m(2)) 1 Kidney damage with normal or decreased GFR 90 2 Kidney damage with mild decrease in GFR 60-89 3 Moderate decrease in GFR 30-59 4 Severe decrease in GFR 15-29 5 Kidney failure <15 (or dialysis) 25 Please note: New reference range, effective 11/07/11 NORMAL REFERENCE RANGE: GREATER THAN 4.1 NG/ML 26 CHOLESTEROL INTERPRETATION: Desirable: Less than 200 MG/DL Borderline-High Risk: 200-239 MG/DL High-Risk: 240 MG/DL and over 27 HDL INTERPRETATION: Undesirable: High Risk: Less than 40 MG/DL Desirable: Low Risk: Greater than 60 MG/DL 28 LDL INTERPRETATION: Low Risk Optimal Level: LDL Less than 100 MG/DL Near or Above Optimal: LDL 100-129 MG/DL Borderline High Risk: LDL 130-159 MG/DL High Risk: LDL 160-189 MG/DL Very High Risk: LDL Greater than 189 MG/DL 29 Anion gap measurement may be of limited value in the presence of any alkalosis, especially in a combined acid base disorder. . 30 A metabolite of Naproxen, O-desmethylnaproxen, has been shown to interfere with the Jendrassik-Salvador method for measuring total bilirubin. Samples from patients who have taken Naproxen have shown spurious elevation in total bilirubin levels. 31 Because ethnic data is not always readily available, this report includes an eGFR for both -Americans and non- Americans. The National Kidney Disease Education Program (NKDEP) does not endorse the use of the MDRD equation for patients that are not between the ages of 18 and 70, are , have extremes of body size, muscle mass, or nutritional status, or are non- or non-. According to the National Kidney Foundation, irrespective of diagnosis, the stage of the disease is based on the level of kidney function: Stage Description GFR(mL/min/1.73 m(2)) 1 Kidney damage with normal or decreased GFR 90 2 Kidney damage with mild decrease in GFR 60-89 3 Moderate decrease in GFR 30-59 4 Severe decrease in GFR 15-29 5 Kidney failure <15 (or dialysis) 32 Anion gap measurement may be of limited value in the presence of any alkalosis, especially in a combined acid base disorder. . 33 A metabolite of Naproxen, O-desmethylnaproxen, has been shown to interfere with the Jendrassik-Salvador method for measuring total bilirubin. Samples from patients who have taken Naproxen have shown spurious elevation in total bilirubin levels. 34 Because ethnic data is not always readily available, this report includes an eGFR for both -Americans and non- Americans. The National Kidney Disease Education Program (NKDEP) does not endorse the use of the MDRD equation for patients that are not between the ages of 18 and 70, are , have extremes of body size, muscle mass, or nutritional status, or are non- or non-. According to the National Kidney Foundation, irrespective of diagnosis, the stage of the disease is based on the level of kidney function: Stage Description GFR(mL/min/1.73 m(2)) 1 Kidney damage with normal or decreased GFR 90 2 Kidney damage with mild decrease in GFR 60-89 3 Moderate decrease in GFR 30-59 4 Severe decrease in GFR 15-29 5 Kidney failure <15 (or dialysis) 35 CHOLESTEROL INTERPRETATION: Desirable: Less than 200 MG/DL Borderline-High Risk: 200-239 MG/DL High-Risk: 240 MG/DL and over 36 HDL INTERPRETATION: Undesirable: High Risk: Less than 40 MG/DL Desirable: Low Risk: Greater than 60 MG/DL 37 LDL INTERPRETATION: Low Risk Optimal Level: LDL Less than 100 MG/DL Near or Above Optimal: LDL 100-129 MG/DL Borderline High Risk: LDL 130-159 MG/DL High Risk: LDL 160-189 MG/DL Very High Risk: LDL Greater than 189 MG/DL 38 CHOLESTEROL INTERPRETATION: Desirable: Less than 200 MG/DL Borderline-High Risk: 200-239 MG/DL High-Risk: 240 MG/DL and over 39 HDL INTERPRETATION: Undesirable: High Risk: Less than 40 MG/DL Desirable: Low Risk: Greater than 60 MG/DL 40 LDL INTERPRETATION: Low Risk Optimal Level: LDL Less than 100 MG/DL Near or Above Optimal: LDL 100-129 MG/DL Borderline High Risk: LDL 130-159 MG/DL High Risk: LDL 160-189 MG/DL Very High Risk: LDL Greater than 189 MG/DL 41 Anion gap measurement may be of limited value in the presence of any alkalosis, especially in a combined acid base disorder. . 42 A metabolite of Naproxen, O-desmethylnaproxen, has been shown to interfere with the Jendrassik-Salvador method for measuring total bilirubin. Samples from patients who have taken Naproxen have shown spurious elevation in total bilirubin levels. 43 Because ethnic data is not always readily available, this report includes an eGFR for both -Americans and non- Americans. The National Kidney Disease Education Program (NKDEP) does not endorse the use of the MDRD equation for patients that are not between the ages of 18 and 70, are , have extremes of body size, muscle mass, or nutritional status, or are non- or non-. According to the National Kidney Foundation, irrespective of diagnosis, the stage of the disease is based on the level of kidney function: Stage Description GFR(mL/min/1.73 m(2)) 1 Kidney damage with normal or decreased GFR 90 2 Kidney damage with mild decrease in GFR 60-89 3 Moderate decrease in GFR 30-59 4 Severe decrease in GFR 15-29 5 Kidney failure <15 (or dialysis) 44 CHOLESTEROL INTERPRETATION: Desirable: Less than 200 MG/DL Borderline-High Risk: 200-239 MG/DL High-Risk: 240 MG/DL and over 45 HDL INTERPRETATION: Undesirable: High Risk: Less than 40 MG/DL Desirable: Low Risk: Greater than 60 MG/DL 46 LDL INTERPRETATION: Low Risk Optimal Level: LDL Less than 100 MG/DL Near or Above Optimal: LDL 100-129 MG/DL Borderline High Risk: LDL 130-159 MG/DL High Risk: LDL 160-189 MG/DL Very High Risk: LDL Greater than 189 MG/DL 47 Anion gap measurement may be of limited value in the presence of any alkalosis, especially in a combined acid base disorder. . 48 A metabolite of Naproxen, O-desmethylnaproxen, has been shown to interfere with the Jendrassik-[place] method for measuring total bilirubin. Samples from patients who have taken Naproxen have shown spurious elevation in total bilirubin levels. 49 Because ethnic data is not always readily available, this report includes an eGFR for both -Americans and non- Americans. The National Kidney Disease Education Program (NKDEP) does not endorse the use of the MDRD equation for patients that are not between the ages of 18 and 70, are , have extremes of body size, muscle mass, or nutritional status, or are non- or non-. According to the National Kidney Foundation, irrespective of diagnosis, the stage of the disease is based on the level of kidney function: Stage Description GFR(mL/min/1.73 m(2)) 1 Kidney damage with normal or decreased GFR 90 2 Kidney damage with mild decrease in GFR 60-89 3 Moderate decrease in GFR 30-59 4 Severe decrease in GFR 15-29 5 Kidney failure <15 (or dialysis) 50 CALL [id number] WITH RESULTS 51 Anion gap measurement may be of limited value in the presence of any alkalosis, especially in a combined acid base disorder. . 52 Note change in reference range as of 07/07/08. The change was based on recommendations from the [place] [employer]. 53 Because ethnic data is not always readily available, this report includes an eGFR for both -Americans and non- Americans. The National Kidney Disease Education Program (NKDEP) does not endorse the use of the MDRD equation for patients that are not between the ages of 18 and 70, are , have extremes of body size, muscle mass, or nutritional status, or are non- or non-. According to the National Kidney Foundation, irrespective of diagnosis, the stage of the disease is based on the level of kidney function: Stage Description GFR(mL/min/1.73 m(2)) 1 Kidney damage with normal or decreased GFR 90 2 Kidney damage with mild decrease in GFR 60-89 3 Moderate decrease in GFR 30-59 4 Severe decrease in GFR 15-29 5 Kidney failure <15 (or dialysis) 54 Anion gap measurement may be of limited value in the presence of any alkalosis, especially in a combined acid base disorder. . 55 Note change in reference range as of 07/07/08. The change was based on recommendations from the [place] [employer]. 56 Because ethnic data is not always readily available, this report includes an eGFR for both -Americans and non- Americans. The National Kidney Disease Education Program (NKDEP) does not endorse the use of the MDRD equation for patients that are not between the ages of 18 and 70, are , have extremes of body size, muscle mass, or nutritional status, or are non- or non-. According to the National Kidney Foundation, irrespective of diagnosis, the stage of the disease is based on the level of kidney function: Stage Description GFR(mL/min/1.73 m(2)) 1 Kidney damage with normal or decreased GFR 90 2 Kidney damage with mild decrease in GFR 60-89 3 Moderate decrease in GFR 30-59 4 Severe decrease in GFR 15-29 5 Kidney failure <15 (or dialysis) 57 Recommended INR for Patients on Oral Anticoagulants Prophylaxis 2.0 - 3.0 Treatment of thrombosis 2.0 - 3.0 Prevention of embolism 2.0 - 3.0 Prevention of embolism from prosthetic heart valves 2.5 - 3.5 58 DIAGNOSIS,TREATMENT,AND THERAPY MUST BE BASED ON THE INR VALUE ALONE. Procedures Date CPT Code Description Status 09/02/2017 88301 EKG Tracing & Interpretation Completed 07/09/2017 59794 Diffusing Capacity Completed 07/09/2017 32375 Plethysmography Determination Lung Volumes & Per Completed Airway Resist 07/09/2017 82009 Pulmonary Stress Test Simple Completed 07/09/2017 47349 Pulmonary Function><Bronchodil Completed 06/30/2017 22501 ECHO Transthoracic, Real-Time 2D With Doppler And Color Completed Flow 04/07/2017 74261 EKG Tracing & Interpretation Completed 03/28/2017 04529 Intravascular Blood Flow Velocity Completed 03/28/2017 59029 Left Heart Cath. Incl S/I Coronaries, Angio S/I V Gram Completed If Done 03/14/2017 03660 Treadmill Interp/Report Only Completed 03/14/2017 25741 Stress Test Supervsn W/Out I/R Completed 10/24/2016 81582 Holter Monitor Review (24 hr)dr figueroa & yeny Completed only 10/23/2016 79514 ECHO Transthoracic, Real-Time 2D With Doppler And Color Completed Flow 10/23/2016 59700 ECG Monitor/Recording W/Visual Superimposition Scanning Completed 10/21/2016 12022 EKG Tracing & Interpretation Completed 01/03/2016 13432 EKG Tracing & Interpretation Completed 09/26/2015 10295 EKG Tracing & Interpretation Completed 03/18/2014 42229 ECHO Transthoracic, Real-Time 2D With Doppler And Color Completed Flow 03/14/2014 77085 Treadmill Interp/Report Only Completed 03/14/2014 14475 Stress Test Supervsn W/Out I/R Completed 03/10/2014 58260 EKG Tracing & Interpretation Completed 11/09/2013 65976 ECHO Transthoracic, Real-Time 2D With Doppler And Color Completed Flow 10/21/2013 13667 EKG Tracing & Interpretation Completed 01/20/2013 44087 EKG Tracing & Interpretation Completed 10/02/2012 91749 Polysomnography Sleep Staging 4+ Parameters W/Cpap Completed 08/05/2012 74525 EKG Tracing & Interpretation Completed 03/04/2012 98088 EKG Tracing & Interpretation Completed 11/08/2011 96156 EKG Tracing & Interpretation Completed 07/01/2011 13261 EKG Tracing & Interpretation Completed 01/25/2011 49627 EKG Tracing & Interpretation Completed 08/29/2010 13416 EKG, Interpretation Only Completed 08/29/2010 52920 Left Heart Catheterization Completed 08/29/2010 84021 Inj Proc LFT Vent/LFT Atrl Angio Completed 08/29/2010 72876 Coronary Angiography Completed 08/29/2010 58947 S/I/R Inj Proc Vent And Or Atrial Completed 08/29/2010 85590 Selective Coronary Angioplasty Completed 08/24/2010 75092 ECHO Transthoracic, Real-Time 2D With Doppler And Color Completed Flow 08/10/2010 78637 Treadmill Interp/Report Only Completed 08/10/2010 40768 Stress Test Supervsn W/Out I/R Completed 08/12/2006 84250 Stress ECHO Interpretation/Report Hospital Completed 08/12/2006 42181 Treadmill Interp/Report Only Completed 08/12/2006 32937 Treadmill Interp/Report Only Completed 08/12/2006 09111 Stress Test Supervsn W/Out I/R Completed 02/15/2004 38449 ECHO/Stress Completed 02/15/2004 76422 Treadmill Interp/Report Only Completed 02/15/2004 98203 Stress Test Supervsn W/Out I/R Completed Encounters Type Date Location Provider CPT E/M Dx Office Visit 10/14/2017 11:00a [facility] MAYKEL Dominguez [id number] R06.02 [facility] I10 I42.9 G47.33 E78.5 Office Visit 09/02/2017 3:20p [facility] Dom Dotson M.D. 26713 J44.9 R06.02 E66.9 E78.00 I10 I42.9 I25.10 Office Visit 07/29/2017 2:00p [facility] [place] [address] J44.9 [facility] G47.33 R09.02 Office Visit 06/23/2017 12:00p [facility] [place] [address] R06.02 [facility] J45.909 G47.33 E66.01 Z87.891 Z68.37 Office Visit 06/12/2017 10:30a [facility] MAYKEL Dominguez 49746 I25.10 R06.02 E66.01 I42.1 Office Visit 04/07/2017 3:00p [facility] Dom Dotson, 14880 R06.02 Qiana I25.10 E66.01 I42.1 R06.00 Office Visit 04/02/2017 1:20p [facility] Hector Watkins M.D., 15079 Z48.1 [facility] I10 I25.10 Office Visit 03/28/2017 10:50a [facility] Benji Anthony, 96651 R42 MD Office Visit 12/24/2016 1:30p [facility] MAYKEL Dominguez [id number] I10 E66.01 I42.1 Office Visit 12/03/2016 1:30p [facility] MAYKEL Dominguez 81490 E66.01 R06.00 E66.9 I10 I47.1 Office Visit 10/21/2016 1:20p [facility] Dom Dotson, 22797 I10 Ariel Kiran E66.01 I42.1 R03.0 R06.02 E66.9 I34.0 R00.2 Office Visit 04/16/2016 2:30p [facility] MAYKEL Dominguez 61395 I10 E66.01 I42.1 Z68.36 Office Visit 01/03/2016 1:40p [facility] Dom Dotson M.D. 98754 I42.1 I10 E66.01 Office Visit 12/04/2015 11:30a [facility] MAYKEL Dominguez [id number] I42.1 I10 E66.01 I25.9 R03.0 Z68.36 Office Visit 11/01/2015 2:30p [facility] MAYKEL Dominguez [id number] I42.1 I10 R06.02 E66.01 I25.9 Office Visit 10/16/2015 10:30a [facility] MAYKEL Dominguez [id number] I42.1 I10 E66.9 R06.02 Office Visit 09/26/2015 10:00a [facility] Dom Dotson M.D. 39930 I10 I42.1 E66.9 Office Visit 03/14/2014 8:30a [facility] Dom Dotson M.D. 70898 414.9 V72.83 Office Visit 03/10/2014 2:00p [facility] Dom Dotson M.D. 51204 401.1 278.01 425.9 425.11 424.0 786.05 414.0 Office Visit 10/21/2013 2:20p [facility] Dom Dotson M.D. 43038 424.0 278.01 401.1 786.05 Office Visit 01/20/2013 11:40a [facility] Dom Dotson M.D. 41490 401.1 278.01 424.0 Office Visit 11/18/2012 12:02p Elaine Henry 39388 327.23 [facility] Office Visit 10/13/2012 9:18a Elaine Henry 84982 327.23 [facility] 327.51 Office Visit 09/18/2012 10:04a Elaine Henry 05504 780.50 [facility] Office Visit 09/07/2012 11:00a [facility] Brittany Murphy, 42123 401.1 N.P. Office Visit 08/05/2012 9:40a [facility] Dom Dotson, 20991 401.1 M.DKamille 278.01 424.0 Office Visit 04/01/2012 9:30a [facility] Brittany Murphy N.P. 20948 401.1 Office Visit 03/04/2012 10:00a [facility] Dom Dotson, 42584 278.01 M.D. 401.1 786.05 780.59 Office Visit 11/26/2011 1:15p [facility] [place] [address] 401.1 Office Visit 11/08/2011 10:30a [facility] Dom Dotson M.D. 01173 401.1 278.01 786.05 Office Visit 08/01/2011 8:15a [facility] [place] [address] 401.0 786.05 Office Visit 07/01/2011 3:40p [facility] Dom Dotson M.D. 54784 401.0 414.01 278.01 Office Visit 06/06/2011 8:15a [facility] [place] [address] 401.1 Office Visit 05/07/2011 8:15a [facility] [place] [address] 401.1 401.0 Office Visit 04/11/2011 3:40p [facility] Dom Dotson M.D. 74960 401.1 414.01 786.05 278.01 Office Visit 02/19/2011 11:00a [facility] [place] [address] 401.1 Office Visit 02/08/2011 8:15a [facility] [place] [address] Office Visit 01/25/2011 9:30a [facility] Dom Dotson, 36815 414.01 M.D. 401.0 786.05 278.01 Office Visit 09/04/2010 4:20p [facility] Nicole Carias, 03648 414.01 M.D. 401.0 786.05 Office Visit 08/29/2010 12:00p [facility] Nicole Carias, 52549 414.01 M.D. 786.50 786.05 401.0 Office Visit 08/17/2010 9:40a [facility] Dom Dotson, 60286 786.09 M.D. 493.90 278.01 401.0 Office Visit 08/10/2010 10:00a [facility] Dom Dotson M.D. 90529 785.2 786.09 401.1 Plan of Care Future Appointment(s):01/26/2018 1:45 pm - Tessa Bhardwaj MD [facility]10/14/2017 - Marta Turner PAR06.02 Shortness of aeyysdO82 Essential (primary) hypertensionFollow up:Followup with Dr. Dotson in 4-5 lhublkO36.9 Cardiomyopathy, [id number] Obstructive sleep apnea (adult ) (pediatric)E78.5 Hyperlipidemia, unspecifiedNew Medication:Rosuvastatin Calcium 5 mgNew Labs:[facility] - [facility]:Crestor (rosuvastatin calcium) 5 mg 1 tablet Mondays, Wednesdays, Fridays only
[2017-11-06 14:37] VITALS: BP 183/63
--- NOTE | 2017-11-06 15:30 | RAD ---
HISTORY: Knee pain COMPARISONS: July 22, 2013 VIEWS: 4, Frontal, lateral, axial, and oblique views of the right knee FINDINGS: BONE DENSITY: Normal. BONES: The patient is status post arthroplasty of the medial compartment of the right knee. There is no hardware failure or osteolysis. JOINTS: The patient is status post medial compartment of arthroplasty. There is mild/moderate osteoporosis of the lateral and patellofemoral compartments. ALIGNMENT: There is no dislocation. SOFT TISSUES: Unremarkable. OTHER FINDINGS: None. IMPRESSION: STATUS POST MEDIAL COMPARTMENT ARTHROPLASTY. NO ACUTE OSSEOUS INJURY. IF SYMPTOMS PERSIST, RECOMMEND REPEAT IMAGING
--- NOTE | 2017-11-06 18:23 | UC ---
Edelmira Burnett Alfonso, scribed for Chris Harris MD on 11/06/17 at 1459 . Knee Pain HPI - HPI Summary HPI Summary: This patient is a 76 year old F presenting to [facility] accompanied by family with a chief complaint of right knee pain since two days ago. 3 years ago she had a right year replacement at [place]. She is able to ambulate well. She reports the knee cracks and I buckle right down. The patient rates the pain 9/10 in severity. Symptoms aggravated and alleviated by nothing. Patient reports right knee swelling. Patient denies history of trauma, or heavy lifting. She has an orthopedic appointment scheduled for tomorrow. - History of Current Complaint Chief Complaint: UCLowerExtremity Stated Complaint: KNEE PAIN Time Seen by Provider: 11/06/17 14:50 Hx Obtained From: Patient Hx Last Menstrual Period: NA Onset/Duration: Gradual Onset, Lasting Days - 2, Still Present Severity Currently: Severe Pain Intensity: 9 Pain Scale Used: 0-10 Numeric Aggravating Factor(s): Nothing Alleviating Factor(s): Nothing Associated Signs And Symptoms: Positive: Swelling Able to Bear Weight: Yes - Allergies/Home Medications Allergies/Adverse Reactions: Allergies Allergy/AdvReac Type Severity Reaction Status Date / Time Amoxicillin Allergy Severe Swelling Verified 11/06/17 14:37 Of Face,Lips,& Throat Azithromycin [From Zithromax] Allergy Severe Swelling Verified 03/28/17 08:35 Of Face,Lips,& Throat Cefuroxime [From Ceftin] Allergy Severe Swelling Verified 03/28/17 08:35 Of Face,Lips,& Throat Ciprofloxacin [From Cipro] Allergy Severe Swelling Verified 03/28/17 08:35 Of Face,Lips,& Throat Codeine Allergy Severe Swelling Verified 03/28/17 08:35 Of Face,Lips,& Throat Gentamicin Allergy Severe Swelling Verified 03/28/17 08:35 Of Face,Lips,& Throat Imipenem [From Primaxin] Allergy Severe Swelling Verified 03/28/17 08:35 Of Face,Lips,& Throat Tetracycline Allergy Severe Swelling Verified 03/28/17 08:35 Of Face,Lips,& Throat Lisinopril Allergy Intermediate Nausea Verified 03/28/17 08:35 Niacin Allergy Intermediate Swelling Verified 03/28/17 08:35 Simvastatin [From Zocor] Allergy Intermediate Nausea And Verified 03/28/17 08:35 Vomiting Clarithromycin [From Biaxin] Allergy Unknown Swelling Verified 03/28/17 08:35 Of Face,Lips,& Throat Pravastatin Allergy Unknown Unknown Verified 03/28/17 08:35 Reaction Details Carvedilol Allergy Unknown Verified 03/28/17 08:35 Reaction Details PMH/Surg Hx/FS Hx/Imm Hx - Additional Past Medical History Additional PMH: Right knee replacement Previously Healthy: No - Surgical History Surgical History: Yes Surgery Procedure, Year, and Place: 12[place]23 [facility] [place] (right) foot sepsis following puncture injury. 02[place]17 [facility] [place] nasal FX as a child s/p nasal surgery in . 05/2014 [place]- (right) knee surgery - Family History Known Family History: Positive: Cardiac Disease - CHF Negative: Diabetes - Social History Alcohol Use: None Substance Use Type: None Smoking Status (MU): Never Smoked Tobacco Have You Smoked in the Last Year: No Review of Systems Constitutional: Other - Negative fever. Musculoskeletal: Other: - Right knee pain and swelling. Negative history of trauma, or heavy lifting. All Other Systems Reviewed And Are Negative: Yes Physical Exam Triage Information Reviewed: Yes Vital Signs: Initial Vital Signs Temp 99.2 F 11/06/17 14:33 Pulse 84 11/06/17 14:33 Resp 16 11/06/17 14:33 BP 183/63 11/06/17 14:33 Pulse Ox 94 11/06/17 14:33 Vital Signs Reviewed: Yes - Additional Comments VITAL SIGNS: Reviewed. GENERAL: Patient is a well-developed and nourished female who is lying comfortable in the stretcher. Patient is not in any acute respiratory distress. HEAD AND FACE: Normocephalic EYES: PERRLA, EOMI x 2. EARS: Hearing grossly intact. MOUTH: Oropharynx within normal limits. NECK: Supple, trachea is midline, no adenopathy, no JVD, no carotid bruit. CHEST: Symmetric, no tenderness at palpation LUNGS: Clear to auscultation bilaterally. No wheezing or crackles. CVS: Regular rate and rhythm, S1 and S2 present, no murmurs or gallops appreciated. ABDOMEN: Soft, non-tender. Bowel sounds are normal. No abdominal abnormal pulsations. EXTREMITIES: Full ROM in all major joints, no edema, no cyanosis or clubbing. Right knee lateral effusion. No point tenderness. NEURO: Alert and oriented x 3. No acute neurological deficits. Speech is normal and follows commands. SKIN: Dry and warm Diagnostics - Laboratory Diagnostic Studies Completed/Ordered: Right knee XR reveals, per radiologist, STATUS POST MEDIAL COMPARTMENT ARTHROPLASTY. NO ACUTE OSSEOUS INJURY. IF SYMPTOMS PERSIST, RECOMMEND REPEAT IMAGING. [facility] physician has reviewed this radiology report. Knee Pain Course/Dx - Course Course Of Treatment: This patient is a 76 year old F presenting to [facility] accompanied by family with a chief complaint of right knee pain since two days ago. 3 years ago she had a right year replacement at [place]. She is able to ambulate well. She reports the knee cracks and I buckle right down. The patient rates the pain 9/10 in severity. Symptoms aggravated and alleviated by nothing. Patient reports right knee swelling. Patient denies history of trauma, or heavy lifting. She has an orthopedic appointment scheduled for tomorrow. Right knee XR reveals, per radiologist, STATUS POST MEDIAL COMPARTMENT ARTHROPLASTY. NO ACUTE OSSEOUS INJURY. IF SYMPTOMS PERSIST, RECOMMEND REPEAT IMAGING. [facility] physician has reviewed this radiology report. Patient will be discharged with follow up from PCP and orthopedic. She will take Ibuprofen PRN. The patient is agreeable with this plan. The patient is hemodynamically stable, alert and oriented x3. - Differential Dx/Diagnosis Differential Diagnosis/HQI/PQRI: Contusion, Dislocation, Fracture (Closed), Sprain, Strain Provider Diagnoses: Right knee pain. Uncontrolled HTN. Discharge - Discharge Plan Condition: Stable Disposition: HOME Patient Education Materials: Knee Pain (ED) Referrals: Lea Kennedy MD [Primary Care Provider] - Additional Instructions: FOLLOW UP WITH YOUR PRIMARY CARE PROVIDER WITHIN ONE WEEK FOR HIGH BLOOD PRESSURE NOTED TODAY. Take Ibuprofen as needed. The documentation as recorded by the Edelmira stover Alfonso accurately reflects the service I personally performed and the decisions made by me, Chris Harris MD.
== END 2017-11-06 15:56 | disposition home or self-care (01) ==
LOC: UCEAST 13:20
DX: M25.561 Pain in right knee (principal); I10 Essential (primary) hypertension; Z88.5 Allergy status to narcotic agent; Z88.0 Allergy status to penicillin
CPT/HCPCS: 99211; G0463

== ENCOUNTER 2018-03-17 16:10 | Emergency (ER) | payer MEDICARE ==
--- OUTSIDE RECORDS SUMMARY | 2018-03-17 16:40 | XMS REPORT ---
:1940 External Reference #:[id number] Author Organization [facility] Address [address] [address] Phone [phone] Care Team Providers Name Role Phone Lea Kennedy MD Primary Care Physician Unavailable Payers Type Date Identification Payment Subscriber Numbers Provider Health Maintenance Expires: Policy Number: Medicare [employer] ([facility] [place] 11/16/2012 [id number] [facility] PayID: [id number] [address] [address] [place] Chen [address] Health Maintenance Effective: Policy Number: Medicare [employer] ([employer]) 11/17/2012 [id number] [facility] Group Number: [id number] [address] [address] PayID: [id number] [place] Chen [address] Problems Date Description Provider Status Onset: 03/04/2012 Morbid obesity Dom Dotson M.D. Active Onset: 03/04/2012 Dyspnea Dom Dotson M.D. Active Onset: 03/10/2014 Mitral valve disorder Dom Dotson M.D. Active Onset: 03/10/2014 Coronary atherosclerosis Dom Dotson M.D. Active Onset: 09/26/2015 Essential hypertension Dom Dotson M.D. Active Onset: 04/02/2017 Encounter for planned Hector Watkins M.D., [facility], Active postprocedural wound closure [facility] Onset: 03/04/2012 [...] fatigue 10/16/2015 Carvedilol Nausea and Vomiting active 03/12/2018 Rosuvastatin myalgias active Medications Medication Date Status Form Strength Qnty SIG Indications Ordering Provider Torsemide 03/12 Active Tablets 10mg 30tab 1 tablet by R06.02 s mouth as F. needed/direct ed. Qiana Dotson Oxygen 07/09 Active Misc 1unit please use o2 s at 2l/min [place], with exertion, pls provide pt with portable O2 concentrator Advair HFA 07/02 Active Aerosol 115-21mcg 24uni 2 puff twice /Act ts a day MD [place] Labetalol HCL 04/03 Active Tablets 100mg 60tab 1/2 by mouth s twice a day Ellen Dotson M.D. Nitro-Dur 03/18 Active Patches 0.2mg/HR 30uni 1 patch every 24HR ts day on in the F. in the [place], morning, off M.DKamille in the at night Inspra 10/21 Active Tablets 25mg 60tab 1 by mouth I10 Dom s twice a day Ellen Dotson M.D. Aspir-81 08/[address] 81mg 30tab 1 po qd s Ellen Dotson M.D. Advair Diskus Active Aerosol 100-50mcg 1unit 1 inhalation Unknown /0000 /Dose s twice daily as needed Levalbuterol Active Nebulizer 1.25mg/3M Via nebulizer Unknown HCL /0000 L every 4-6 hoursas needed Diltiazem HCL Active Caps ER 120mg 90cap 1 cap by Dom ER Coated Beads / 24HR s mouth twice a . day Qiana Dotson Albuterol Active as needed Unknown Sulfate Inhaler /0000 rescue inhaler Rosuvastatin 10/14 Hx Tablets 5mg 30tab 1 tab by E78.5 Dom s mouth 5 mg F. - Fri, Fri, Fri Nila, 01/25 in pm only M.D. Inspra 10/16 Hx Tablets 25mg 180ta 2 by mouth bs every . - day(patient Nila, 10/21 cut Insp.D. back to 1 daily) Metoprolol 10/10 Hx Tablets 25mg 180ta 1 by mouth Dom Tartrate bs twice a day . - Nila, 10/09 M.D. Toprol XL 10/10 Hx Tablets ER 25mg 90tab 1 tab once a Dom 24HR s day . - Nila, 04/03 M.D. Carvedilol 09/26 Hx Tablets 6.25mg 180ta 1 by mouth I10 Dom bs twice a day . - Nila, 10/06 M.D. Diltiazem HCL 03/10 Hx Caps ER 360mg 1 by mouth Dom CD 24HR every day . - Nila, 03/10 M.D. Diltiazem HCL 03/10 Hx Caps ER 120mg 100ca 2 by mouth Dom ER 24HR ps each morning F. - and one each Mauser, 09/25 evening M.D. Albuterol 01/20 Hx Nebulizer (2.5mg/3M 100un 1 vial via Other L) 0.083% its nebulizer 4 Ordering - times daily Provider 09/25 as needed /2014 Diltiazem CD 08/05 Hx Caps ER 120mg 100ca 2 po qam 24HR ps F. - Abbyuser, 03/10 M.D. Diltiazem CD 03/04 Hx Caps ER 120mg 1 po bid 24HR F. - Abbyuser, 08/05 M.D. Spironolactone 03/04 Hx Tablets 25mg 90tab 1 po qd s F. - Abbyuser, 08/05 M.D. Toprol XL 11/15 Hx Tablets ER 25mg 100ta 1 by mouth I10 24HR bs twice a day . - José Miguelr, 09/26.D. Losartan 08/05 Hx Tablets 25mg 100ta 1 po daily bs . - Abbyuser, 11/13 M.D. Losartan 07/01 Hx Tablets 50mg 60tab s . - Abbyuser, 08/05 M.D. Losartan 06/13 Hx Tablets 50mg 1 po qd . - Abbyuser, 07/01 M.D. Diltiazem CD 06/06 Hx Caps ER 120mg 90cap 2 po qam and 24HR s 1 qpm . - Abbyuser, 03/04 M.D. Losartan 06/06 Hx Tablets 25mg 30tab one po qd Dom Potassium s F. - Mauser, 06/13 M.D. Pravachol 05/21 Hx Tablets 10mg 30tab 1 po qd s F. - Abbyuser, 06/06 M.D. Lipitor 05/02 Hx Tablets 10mg 15tab 1/2 tablet s po qhs . - Abbyuser, 05/21 M.D. Diltiazem CD 04/11 Hx Caps ER 120mg 60cap 2 po qd 24HR s Ellen Dotson, 04/11.D Zocor 04/11 Hx Tablets 10mg 60tab 2 po qhs s Ellen Dotson, 04/11.D Losartan 04/11 Hx Tablets 50mg 100ta 1 po qd Ellen Dotson, 06/06.D Diltiazem CD 04/11 Hx Caps ER 120mg 180ca 2 tabs in the 24HR ps am Ellen Dtoson, 06/06.D Zocor 02/06 Hx Tablets 10mg 30tab 1 po hs s Ellen Dotson, 04/11. Losartan 02/06 Hx Tablets 50mg 100ta 1 po qd Ellen Dotson, 04/11.D Lisinopril 01/25 Hx Tablets 5mg 30tab 1 po qd Ellen Dotson, 02/06.D Diltiazem CD 08/24 Hx Caps ER 120mg 30cap 1 po qd 24HR Ellen Dotson, 04/11. Avapro 08/17 Hx Tablets 75mg 30tab 1 po qam dante Dotson, 08/24.D Norvasc Hx Tablets 5mg 30tab 1 po qd Unknown /0000 s - 08/24 Xponex Inhaler Hx use as Unknown /0000 directed - 09/[address] 40mg 100ta 1 po qd prn Unknown / bs - 09/21 Xopenex Hx Nebulizer 1Mont 1 vial via Unknown /0000 Garvey nebulizer - inhalation 01/20 tid prn Vital Signs Date Vital Result Comment 03/12/2018 Height 67 inches 5'7" Weight 235.00 lb Heart Rate 72 /min BP Systolic Sitting 170 mmHg Lue large cuff BP Diastolic Sitting 88 mmHg Lue large cuff BP Systolic Standing 168 mmHg Lue BP Diastolic Standing 84 mmHg Lue Respiratory Rate 18 /min BMI (Body Mass Index) 36.8 kg/m2 Ejection Fraction 60-65% 06/30/17 01/26/2018 Height 67 inches 5'7" Weight 237.50 lb Heart Rate 82 /min BP Systolic Sitting 144 mmHg Lue large cuff BP Diastolic Sitting 82 mmHg Lue large cuff Respiratory Rate 20 /min O2 % BldC Oximetry 95 % BMI (Body Mass Index) 37.2 kg/m2 10/14/2017 Height 67 inches 5'7" Weight 227.75 [...] Systolic Recheck 150 mmHg BP rechecked by ADVERTISING SALES REPRESENTATIVE BP Diastolic Recheck 76 mmHg BP rechecked by ADVERTISING SALES REPRESENTATIVE BMI (Body Mass Index) 35.9 kg/m2 08/05/2012 [...] 148 mmHg Pulse 72 and regular/repeated by ADVERTISING SALES REPRESENTATIVE BP Diastolic Recheck 70 mmHg Pulse 72 and regular/repeated by ADVERTISING SALES REPRESENTATIVE BMI (Body Mass Index) 35.7 kg/m2 03/04/2012 [...] Test Date Test Result H/L Range Note Laboratory test 03/12/2018 Erythrocyte Sed Rate <pending> finding CRP High Sensitivity <pending> B-Type Natriuretic Peptide BNP <pending> D Dimer Quantitative <pending> Cath Panel 03/26/2017 Partial Thrombo Time PTT [...] 0-2 Nucleated Red Blood Cells % 0.4 Lipid Profile (Trig/Chol/HDL) 03/26/2017 Triglycerides 76 mg/dL 1 Cholesterol 146 mg/dL 2 HDL Cholesterol 44.4 mg/dL 3 LDL Cholesterol 86 mg/dL 4 Comp Metabolic Panel 03/26/2017 Sodium 139 mmol/L [...] Egfr Non- 102.8 >60 Egfr 132.3 >60 5 Lipid Panel - [facility] 03/26/2017 Creatine Kinase(CK) 68 U/L 10-223 6 Laboratory test finding 03/26/2017 B-Type Natriuretic Peptide 68 pg/mL 7 BNP Inr/Protime 03/26/2017 Inr 0.96 0.89-1.11 Laboratory test finding 10/29/2016 Magnesium 2.0 mg/dL 1.9-2.7 8 Lipid Profile 10/29/2016 Triglycerides 82 mg/dL 9 (Trig/Chol/HDL) Cholesterol 141 mg/dL 10 HDL Cholesterol 48.1 mg/dL 11 LDL Cholesterol 77 mg/dL 12 Comp Metabolic Panel 10/29/2016 Sodium 138 mmol/L [...] Egfr Non- 90.2 >60 Egfr 116.0 >60 13 Lipid Panel - [facility] 10/29/2016 Creatine Kinase(CK) 59 U/L 10-223 14 CBC Auto Diff 10/29/2016 White Blood Count [...] Blood Cells % 0.1 Laboratory test finding 10/29/2016 B-Type Natriuretic Peptide 53 pg/mL 15 BNP Basic Metabolic Panel 05/07/2016 Sodium 140 mmol/L [...] Non- 98.0 >60 Egfr 126.0 >60 24 Comp Metabolic Panel 03/20/2012 Sodium 140 mmol/L 135-145 Potassium 4.0 mmol/L 3.5-5.0 Chloride 108 mmol/L 101-111 Co2 (Carbon Dioxide) 28.0 mmol/L 22-32 Anion Gap 4.0 mmol/L 2-11 25 Glucose 103 mg/dL High 70-100 BUN 12 mg/dL 6-24 Creatinine 0.6 mg/dL 0.50-1.40 One Over Creatinine 1.66 BUN/Creatinine Ratio 20.0 8-20 Calcium 9.4 mg/dL 8.1-9.9 Total Protein 6.9 GM/DL 6.2-8.1 Albumin 4.1 GM/DL 3.2-5.2 Globulin 2.8 GM/DL 2-4 Albumin/Globulin Ratio 1.5 1-3 Bilirubin Total 2.3 mg/dL High 0.4-1.5 26 Alkaline Phosphatase 67 U/L 30-110 Alt (SGPT) 28 U/L 14-54 Ast (Sgot) 29 U/L 12-42 eGFR Non- 98.3 > 60 eGFR 126.4 > 60 27 Lipid Profile (Trig/Chol/HDL) 03/20/2012 Triglyceride 102 mg/dL 40-200 Cholesterol 152 mg/dL Less Than 200 28 High Density Lipoprotein 39 mg/dL Low 40-60 29 Cholesterol/HDL Ratio 3.90 AVERAGE 1-4.44 Low Density Lipoprotein 93 mg/dL Less Than 100 30 Vitamin B12 And Folate Serum 03/20/2012 Vitamin B12 180 pg/mL 180-914 Folic Acid > 25.6 NG/ML See Below 31 Laboratory test finding 03/20/2012 CPK (Creatine Kinase) 93 U/L 0-170 CBC Auto Diff 03/20/2012 White Blood Count [...] test finding 03/20/2012 TSH 1.47 MIU/ML 0.34-5.60 Lipid Panel - JF 06/28/2011 CPK (Creatine Kinase) 58 U/L 0-170 [...] 92 mg/dL Less Than 100 37 Lipid Panel - [facility] 04/08/2011 CPK (Creatine Kinase) 77 U/L 0-170 Comp Metabolic Panel 04/08/2011 Sodium 140 mmol/L 135-145 Potassium 4.1 mmol/L 3.5-5.0 Chloride 106 mmol/L 101-111 Co2 (Carbon Dioxide) 27.0 mmol/L 22-32 Anion Gap 7.0 mmol/L 2-11 38 Glucose 90 mg/dL 70-100 BUN 16 mg/dL 6-24 Creatinine 0.60 mg/dL 0.50-1.40 One Over Creatinine 1.60 BUN/Creatinine Ratio 26.7 High 8-20 Calcium 9.2 mg/dL 8.1-9.9 Total Protein 6.8 GM/DL 6.2-8.1 Albumin 4.1 GM/DL 3.2-5.2 Globulin 2.7 GM/DL 2-4 Albumin/Globulin Ratio 1.5 1-3 Bilirubin Total 2.1 mg/dL High 0.4-1.5 39 Alkaline Phosphatase 70 U/L 30-110 Alt (SGPT) 28 U/L 14-54 Ast (Sgot) 31 U/L 12-42 eGFR Non- 98.5 > 60 eGFR 126.7 > 60 40 Lipid Profile (Trig/Chol/HDL) 04/08/2011 Triglyceride 71 mg/dL 40-200 Cholesterol 164 mg/dL Less Than 200 41 High Density Lipoprotein 46 mg/dL 40-60 42 Cholesterol/HDL Ratio 3.57 AVERAGE 1-4.44 Low Density Lipoprotein 104 mg/dL High Less Than 100 43 CBC Auto Diff 02/05/2011 White Blood Count [...] 50 eGFR 202.9 > 60 50, 53 Cath Panel 08/21/2010 PTT (Aptt) 30.2 25.15-38.53 CBC With Manual Diff 08/21/2010 White Blood [...] Absolute Neutrophil Count 5.1 RBC Morphology NORMAL Basic Metabolic Panel 08/21/2010 Sodium 141 mmol/L [...] > 60 eGFR 153.3 > 60 56 Protime 08/21/2010 Inr 1.04 0.82-1.17 57 Protime 12.3 SEC 10.2-14.8 58 1 Desirable <150 Borderline high 150-199 High 200-499 Very High >500 2 Desirable <200 Borderline high 200-239 High >239 3 Low <40 Desirable: 40-60 High: >60 4 Desirable: <100 mg/dL Near Optimal: 100-129 mg/dL Borderline High: 130-159 mg/dL High: 160-189 mg/dL Very High: >189 mg/dL 5 Because ethnic data is not always readily [...] 15-29 5 Kidney failure <15 (or dialysis) 6 FASTING 7 >100 to <200 pg/mL: likely compensated congestive heart failure (CHF) 200 to 400 pg/mL: likely moderate CHF >400 pg/mL: likely moderate to severe CHF 8 FASTING 9 Desirable <150 Borderline high 150-199 High 200-499 Very High >500 10 Desirable <200 Borderline high 200-239 High >239 11 Low <40 Desirable: 40-60 High: >60 12 Desirable: <100 mg/dL Near Optimal: 100-129 mg/dL Borderline High: 130-159 mg/dL High: 160-189 mg/dL Very High: >189 mg/dL 13 Because ethnic data is not always readily [...] 15-29 5 Kidney failure <15 (or dialysis) 14 FASTING 15 >100 to <200 pg/mL: likely compensated congestive heart failure (CHF) 200 to 400 pg/mL: likely moderate CHF >400 pg/mL: likely moderate to severe CHF 16 Because ethnic data is not always [...] 5 Kidney failure <15 (or dialysis) 25 Anion gap measurement may be of limited value in the presence of any alkalosis, especially in a combined acid base disorder. . 26 A metabolite of Naproxen, O-desmethylnaproxen, has been shown to interfere with the Jendrassik-Salvador method for measuring total bilirubin. Samples from patients who have taken Naproxen have shown spurious elevation in total bilirubin levels. 27 Because ethnic data is not always readily [...] 15-29 5 Kidney failure <15 (or dialysis) 28 CHOLESTEROL INTERPRETATION: Desirable: Less than 200 MG/DL Borderline-High Risk: 200-239 MG/DL High-Risk: 240 MG/DL and over 29 HDL INTERPRETATION: Undesirable: High Risk: Less than 40 MG/DL Desirable: Low Risk: Greater than 60 MG/DL 30 LDL INTERPRETATION: Low Risk Optimal Level: LDL Less than 100 MG/DL Near or Above Optimal: LDL 100-129 MG/DL Borderline High Risk: LDL 130-159 MG/DL High Risk: LDL 160-189 MG/DL Very High Risk: LDL Greater than 189 MG/DL 31 Please note: New reference range, effective 11/07/11 NORMAL REFERENCE RANGE: GREATER THAN 4.1 NG/ML 32 Anion gap measurement may be of limited value in the presence of any alkalosis, especially in a combined acid base disorder. . 33 A metabolite of Naproxen, O-desmethylnaproxen, has been shown to interfere with the Jendrassik-[place] method for measuring total bilirubin. Samples from [...] Risk: LDL Greater than 189 MG/DL 38 Anion gap measurement may be of limited value in the presence of any alkalosis, especially in a combined acid base disorder. . 39 A metabolite of Naproxen, O-desmethylnaproxen, has been shown to interfere with the Jendrassik-[place] method for measuring total bilirubin. Samples from patients who have taken Naproxen have shown spurious elevation in total bilirubin levels. 40 Because ethnic data is not always readily [...] 15-29 5 Kidney failure <15 (or dialysis) 41 CHOLESTEROL INTERPRETATION: Desirable: Less than 200 MG/DL Borderline-High Risk: 200-239 MG/DL High-Risk: 240 MG/DL and over 42 HDL INTERPRETATION: Undesirable: High Risk: Less than 40 MG/DL Desirable: Low Risk: Greater than 60 MG/DL 43 LDL INTERPRETATION: Low Risk Optimal Level: LDL Less than 100 MG/DL Near or Above Optimal: LDL 100-129 MG/DL Borderline High Risk: LDL 130-159 MG/DL High Risk: LDL 160-189 MG/DL Very High Risk: LDL Greater than 189 MG/DL 44 CHOLESTEROL INTERPRETATION: Desirable: Less than 200 [...] has been shown to interfere with the Jendrassik-[place] method for measuring total bilirubin. Samples from [...] change was based on recommendations from the [employer]. 53 Because ethnic data is [...] change was based on recommendations from the [employer]. 56 Because ethnic data is [...] ALONE. Procedures Date CPT Code Description Status 03/12/2018 31788 EKG Tracing & Interpretation Completed 09/02/2017 52698 EKG Tracing & Interpretation Completed 07/09/2017 69472 Diffusing Capacity Completed 07/09/2017 68369 Plethysmography Determination Lung Volumes & Per Completed Airway Resist 07/09/2017 32629 Pulmonary Stress Test Simple Completed 07/09/2017 06708 Pulmonary Function><Bronchodil Completed 06/30/2017 34852 ECHO Transthoracic, Real-Time 2D With Doppler And Color Completed Flow 04/07/2017 75721 EKG Tracing & Interpretation Completed 03/28/2017 94136 Intravascular Blood Flow Velocity Completed 03/28/2017 97571 Left Heart Cath. Incl S/I Coronaries, Angio S/I V Gram Completed If Done 03/14/2017 69762 Stress Test Supervsn W/Out I/R Completed 03/14/2017 77019 Treadmill Interp/Report Only Completed 10/24/2016 38833 Holter Monitor Review (24 hr)dr henry & yeny Completed only 10/23/2016 46575 ECHO Transthoracic, Real-Time 2D With Doppler And Color Completed Flow 10/23/2016 71662 ECG Monitor/Recording W/Visual Superimposition Scanning Completed 10/21/2016 41359 EKG Tracing & Interpretation Completed 01/03/2016 08806 EKG Tracing & Interpretation Completed 09/26/2015 95687 EKG Tracing & Interpretation Completed 03/18/2014 66849 ECHO Transthoracic, Real-Time 2D With Doppler And Color Completed Flow 03/14/2014 22879 Treadmill Interp/Report Only Completed 03/14/2014 46042 Stress Test Supervsn W/Out I/R Completed 03/10/2014 11338 EKG Tracing & Interpretation Completed 11/09/2013 84557 ECHO Transthoracic, Real-Time 2D With Doppler And Color Completed Flow 10/21/2013 51668 EKG Tracing & Interpretation Completed 01/20/2013 65032 EKG Tracing & Interpretation Completed 10/02/2012 04738 Polysomnography Sleep Staging 4+ Parameters W/Cpap Completed 08/05/2012 78657 EKG Tracing & Interpretation Completed 03/04/2012 08391 EKG Tracing & Interpretation Completed 11/08/2011 03731 EKG Tracing & Interpretation Completed 07/01/2011 63785 EKG Tracing & Interpretation Completed 01/25/2011 40868 EKG Tracing & Interpretation Completed 08/29/2010 56482 EKG, Interpretation Only Completed 08/29/2010 87602 Left Heart Catheterization Completed 08/29/2010 15400 Inj Proc LFT Vent/LFT Atrl Angio Completed 08/29/2010 58565 Coronary Angiography Completed 08/29/2010 77299 S/I/R Inj Proc Vent And Or Atrial Completed 08/29/2010 56280 Selective Coronary Angioplasty Completed 08/24/2010 93145 ECHO Transthoracic, Real-Time 2D With Doppler And Color Completed Flow 08/10/2010 85826 Treadmill Interp/Report Only Completed 08/10/2010 81715 Stress Test Supervsn W/Out I/R Completed 08/12/2006 84238 Stress ECHO Interpretation/Report Hospital Completed 08/12/2006 79052 Treadmill Interp/Report Only Completed 08/12/2006 97687 Treadmill Interp/Report Only Completed 08/12/2006 68287 Stress Test Supervsn W/Out I/R Completed 02/15/2004 34591 ECHO/Stress Completed 02/15/2004 22087 Treadmill Interp/Report Only Completed 02/15/2004 19743 Stress Test Supervsn W/Out I/R Completed Encounters Type Date Location Provider CPT E/M Dx Office Visit 01/26/2018 [facility] [place] [address] R06.02 1:45p [facility] J44.9 G47.33 E66.09 Office Visit 10/14/2017 11:00a [facility] MAYKEL Dominguez 61735HQD R06.02 [place] [place] I10 I42.9 G47.33 E78.5 Office Visit 09/02/2017 3:20p [facility] Dom Dotson M.D. 29430 J44.9 R06.02 E66.9 E78.00 I10 I42.9 I25.10 Office Visit 07/29/2017 2:00p [facility] [place] [address] J44.9 [facility] G47.33 R09.02 Office Visit 06/23/2017 12:00p [facility] [place] [address] R06.02 [facility] J45.909 G47.33 E66.01 Z87.891 Z68.37 Office Visit 06/12/2017 10:30a [facility] MAYKEL Dominguez 75568 I25.10 R06.02 E66.01 I42.1 Office Visit 04/07/2017 3:00p [facility] Dom Dotson, 56367 R06.02 Qiana I25.10 E66.01 I42.1 R06.00 Office Visit 04/02/2017 1:20p [facility] Hector Watkins M.D., 92293 Z48.1 [facility] At [facility], [facility] I10 I25.10 Office Visit 03/28/2017 10:50a [facility] Benji Anthony, 33458 R42 MD Office Visit 12/24/2016 1:30p [facility] MAYKEL Dominguez 83572VDX I10 E66.01 I42.1 Office Visit 12/03/2016 1:30p [facility] MAYKEL Dominguez 91086 E66.01 R06.00 E66.9 I10 I47.1 Office Visit 10/21/2016 1:20p [facility] Dom Dotson, 56825 I10 Ariel Kiran E66.01 I42.1 R03.0 R06.02 E66.9 I34.0 R00.2 Office Visit 04/16/2016 2:30p [facility] MAYKEL Dominguez 09752 I10 E66.01 I42.1 Z68.36 Office Visit 01/03/2016 1:40p [facility] Dom Dotson M.D. 89634 I42.1 I10 E66.01 Office Visit 12/04/2015 11:30a [facility] MAYKEL Dominguez 04104GDN I42.1 I10 E66.01 I25.9 R03.0 Z68.36 Office Visit 11/01/2015 2:30p [facility] MAYKEL Dominguez 44548RUH I42.1 I10 R06.02 E66.01 I25.9 Office Visit 10/16/2015 10:30a [facility] MAYKEL Dominguez 74302VVR I42.1 I10 E66.9 R06.02 Office Visit 09/26/2015 10:00a [facility] Dom Dotson M.D. 71110 I10 I42.1 E66.9 Office Visit 03/14/2014 8:30a [facility] Dom Dotson M.D. 02381 414.9 V72.83 Office Visit 03/10/2014 2:00p [facility] Dom Dotson M.D. 71909 401.1 278.01 425.9 425.11 424.0 786.05 414.0 Office Visit 10/21/2013 2:20p [facility] Dom Dotson M.D. 08760 424.0 278.01 401.1 786.05 Office Visit 01/20/2013 11:40a [facility] Dom Dotson M.D. 64840 401.1 278.01 424.0 Office Visit 11/18/2012 12:02p Elaine Henry 94896 327.23 Disorder Center M.DKamille Office Visit 10/13/2012 9:18a [facility] Chago Henry 56899 327.23 Disorder Center MAnnika 327.51 Office Visit 09/18/2012 10:04a Elaine Henry 45523 780.50 Disorder Center MAnnika Office Visit 09/07/2012 11:00a [facility] Brittany Murphy 55405 401.1 N.P. Office Visit 08/05/2012 9:40a [facility] Dom Dotson 15623 401.1 MAnnika 278.01 424.0 Office Visit 04/01/2012 9:30a [facility] Brittany Murphy, N.P. 80768 401.1 Office Visit 03/04/2012 10:00a [facility] Dom Dotson 83236 278.01 MAnnika 401.1 786.05 780.59 Office Visit 11/26/2011 1:15p [facility] Nurse Visit 96363 401.1 Office Visit 11/08/2011 10:30a [facility] Dom Dotson M.D. 21326 401.1 278.01 786.05 Office Visit 08/01/2011 8:15a [facility] [place] [address] 401.0 786.05 Office Visit 07/01/2011 3:40p [facility] Dom Dotson M.D. 71424 401.0 414.01 278.01 Office Visit 06/06/2011 8:15a [facility] [place] [address] 401.1 Office Visit 05/07/2011 8:15a [facility] [place] [address] 401.1 401.0 Office Visit 04/11/2011 3:40p [facility] Dom Dotson M.D. 21225 401.1 414.01 786.05 278.01 Office Visit 02/19/2011 11:00a [facility] [place] [address] 401.1 Office Visit 02/08/2011 8:15a [facility] [place] [address] Office Visit 01/25/2011 9:30a [facility] Dom Dotson, 76627 414.01 M.D. 401.0 786.05 278.01 Office Visit 09/04/2010 4:20p [facility], 17086 414.01 M.D. 401.0 786.05 Office Visit 08/29/2010 12:00p [facility] Jose Ataybshawn Carias, 89115 414.01 M.D. 786.50 786.05 401.0 Office Visit 08/17/2010 9:40a [facility] Dom Dotson, 38048 786.09 M.D. 493.90 278.01 401.0 Office Visit 08/10/2010 10:00a [facility] Dom Dotson M.D. 75575 785.2 786.09 401.1 Plan of Care Future Appointment(s):03/31/2018 1:30 pm - Kanwal Dotson NMarzena at [facility]03/24/2018 1:15 pm - Traveling ECHO Schedule at [facility]07/27/2018 1:30 pm - Tessa Bhardwaj MD at [facility]03/12/2018 - Dom Dotson M.D.R06.02 Shortness of breathNew Medication:Torsemide 10 mgNew Xrays:Chest PA & Lat 2 VWSNew Orders :EchocardiogramFollow up:ov Kanwal 2 -3 ngrdyV75.9 Chronic obstructive pulmonary disease, sdvviczlbduK72.33 Obstructive sleep apnea (adult) (pediatric)E66.09 Other obesity due to excess [id number] Essential (primary) etuijwqtfqfeL02.9 Cardiomyopathy, lalfmejbthzQ40.5 Hyperlipidemia, tlcrinspahzK32.2 Nonrheumatic mitral (valve) fmoptdocJ71.9 Edema, unspecifiedNew Xrays:Venous Doppler Lower Sushant ExtUS Gall Bladder
[2018-03-17 16:44] VITALS: BP 00/00
--- NOTE | 2018-03-17 17:18 | RAD ---
HISTORY: Right ankle pain, trauma COMPARISONS: June 20, 2011 VIEWS: 4, Frontal, lateral, and oblique views of the right ankle FINDINGS: BONE DENSITY: Normal. BONES: There is no displaced fracture. There are calcaneal enthesophytes. JOINTS: There is mild osteoarthritis of the tibiotalar and fibulotalar articulations. ALIGNMENT: There is no dislocation. SOFT TISSUES: Unremarkable. OTHER FINDINGS: None. IMPRESSION: OSTEOARTHRITIS. NO ACUTE OSSEOUS INJURY. IF SYMPTOMS PERSIST, RECOMMEND REPEAT IMAGING.
--- NOTE | 2018-03-17 17:20 | UC ---
Lower Extremity/Ankle HPI - HPI Summary HPI Summary: 77 y/o female s/p fall in [employer] parking lot ~ 1 hour ago, able to stand/ ambulate poorly afterwards, + swelling, bruising. pain both medially/ laterally. no blood thinners, no LOC, head injury. mild pain currently at rest - History of Current Complaint Chief Complaint: UCLowerExtremity Stated Complaint: ANKLE INJURY Time Seen by Provider: 03/17/18 16:43 Hx Obtained From: Patient Hx Last Menstrual Period: NA ?: No Onset/Duration: Sudden Onset, Lasting Hours Severity Initially: Moderate Severity Currently: Mild Pain Intensity: 9 - with ambulation Pain Scale Used: 0-10 Numeric Aggravating Factor(s): Standing, Ambulation Alleviating Factor(s): Rest - Allergies/Home Medications Allergies/Adverse Reactions: Allergies Allergy/AdvReac Type Severity Reaction Status Date / Time amoxicillin Allergy Swelling Verified 03/17/18 16:53 Of Face,Lips,& Throat azithromycin [From Zithromax] Allergy Swelling Verified 03/17/18 16:53 Of Face,Lips,& Throat carvedilol Allergy Unknown Verified 03/17/18 16:53 Reaction Details cefuroxime [From Ceftin] Allergy Swelling Verified 03/17/18 16:53 Of Face,Lips,& Throat cilastatin [From Primaxin] Allergy Swelling Verified 03/17/18 16:53 Of Face,Lips,& Throat ciprofloxacin [From Cipro] Allergy Swelling Verified 03/17/18 16:53 Of Face,Lips,& Throat clarithromycin [From Biaxin] Allergy Swelling Verified 03/17/18 16:53 Of Face,Lips,& Throat codeine Allergy Swelling Verified 03/17/18 16:53 Of Face,Lips,& Throat gentamicin Allergy Swelling Verified 03/17/18 16:53 Of Face,Lips,& Throat imipenem [From Primaxin] Allergy Swelling Verified 03/17/18 16:53 Of Face,Lips,& Throat lisinopril Allergy Nausea Verified 03/17/18 16:53 niacin Allergy Swelling Verified 03/17/18 16:53 pravastatin Allergy Unknown Verified 03/17/18 16:53 Reaction Details simvastatin [From Zocor] Allergy Nausea And Verified 03/17/18 16:53 Vomiting tetracycline Allergy Swelling Verified 03/17/18 16:53 Of Face,Lips,& Throat PMH/Surg Hx/FS Hx/Imm Hx Previously Healthy: No - cardiac disease, pulmonary - Surgical History Surgical History: Yes Surgery Procedure, Year, and Place: 12/23 [facility] [place] & [place]ina[place], (right) foot sepsis following puncture injury. 02/17 [facility] [place] - hysterectomy, nasal FX as a child s/p nasal surgery in . 05/2014 [place]- (right) knee surgery - Family History Known Family History: Positive: Cardiac Disease - CHF Negative: Diabetes - Social History Alcohol Use: None Substance Use Type: None Smoking Status (MU): Never Smoked Tobacco Have You Smoked in the Last Year: No Review of Systems Motor: Decreased ROM - due to pain with DF. PF Musculoskeletal: Arthralgia, Decreased ROM, Myalgia Is Patient Immunocompromised?: No All Other Systems Reviewed And Are Negative: Yes Physical Exam Triage Information Reviewed: Yes Appearance: Well-Appearing, No Pain Distress, Well-Nourished Vital Signs: Initial Vital Signs Temp 100.2 F 03/17/18 16:40 Pulse 104 03/17/18 16:40 Resp 18 03/17/18 16:40 BP 00/00 03/17/18 16:40 Pulse Ox 95 03/17/18 16:40 Vital Signs Reviewed: Yes Musculoskeletal: Positive: Other: - no TTP b/l hips, neg log roll b/l, full ROM b/l knees, no TTP over knees, PT pulses 2+ SITLT b/l feet, cap reffil < 2, pain with AROM DF/PF, on pain with PROM full, TTP over medial/ lateral mal, anterior , posterior to lat mal, posterior to medial mal. neg homans neg achillies testing. Neurological Exam: Normal Psychological Exam: Normal Skin Exam: Normal Skin: Positive: Other - skin intact over ankles, superficial scraping over L knee Lower Extremity Course/Dx - Course Course Of Treatment: x-ray: negative. CAM boot given, WBAT, crutches as needed, folow up with PCP or ortho within 3-5 days for repeat eval. RICE - Differential Dx/Diagnosis Differential Diagnosis/HQI/PQRI: Sprain, Strain Provider Diagnoses: R ankle sprain Discharge - Sign-Out/Discharge Documenting (check all that apply): Discharge/Admit/Transfer - Discharge Plan Condition: Good Disposition: HOME Patient Education Materials: Ankle Sprain (ED) Referrals: Lea Kennedy MD [Primary Care Provider] - Carolina Anderson MD [Medical Doctor] - Additional Instructions: - CAM boot at all times when mobile - Crutches as needed for comfort -weight bearing as tolerated - keep foot elevated, iced for next 48 hours to decrease swelling - motrin/ tylenol as needed for pain - Follow up with primary physician or orthopedic within 3-5 days for repeat eval. - OK to remove CAM boot when not mobile or for bathing. - Billing Disposition and Condition Condition: GOOD Disposition: HOME
== END 2018-03-17 17:50 | disposition home or self-care (01) ==
LOC: UCEAST 16:10
DX: S93.401A Sprain of unspecified ligament of right ankle, initial encounter (principal); W18.30XA Fall on same level, unspecified, initial encounter; Y93.01 Activity, walking, marching and hiking; Y92.481 Parking lot as the place of occurrence of the external cause; M19.071 Primary osteoarthritis, right ankle and foot; I51.9 Heart disease, unspecified; J98.4 Other disorders of lung; Z88.1 Allergy status to other antibiotic agents; Z88.5 Allergy status to narcotic agent; Z88.0 Allergy status to penicillin; Z88.8 Allergy status to other drugs, medicaments and biological substances
CPT/HCPCS: 99213; G0463

== ENCOUNTER 2018-09-27 11:06 | Emergency (ER) | payer MEDICARE ==
[2018-09-27 11:17] VITALS: BP 190/100
--- NOTE | 2018-09-27 12:21 | UC ---
Respiratory Complaint HPI - HPI Summary HPI Summary: 77 yo who c/o dry cough and exacerbation of asthma for the past 2 weeks. She denies fever or chills, states she is allergic to multiple antibiotics but tolerates doxycycline well. She has been nebulizing albuterol and last dose was this am. Denies n/v/d. - History of Current Complaint Chief Complaint: UCRespiratory Stated Complaint: COUGH CONGESTION Time Seen by Provider: 09/27/18 12:09 Hx Obtained From: Patient Hx Last Menstrual Period: NA ?: No Onset/Duration: Gradual Onset, Lasting Weeks Severity Initially: Mild Severity Currently: Moderate Pain Intensity: 6 Character: Cough: Nonproductive Associated Signs And Symptoms: Positive: Wheezing, URI - Risk Factors Pulmonary Embolism Risk Factors: Negative Cardiac Risk Factors: Hypertension Pseudomonas Risk Factors: Negative Tuberculosis Risk Factors: Negative - Allergies/Home Medications Allergies/Adverse Reactions: Allergies Allergy/AdvReac Type Severity Reaction Status Date / Time amoxicillin Allergy Swelling Verified 03/17/18 16:53 Of Face,Lips,& Throat azithromycin [From Zithromax] Allergy Swelling Verified 03/17/18 16:53 Of Face,Lips,& Throat carvedilol Allergy Unknown Verified 03/17/18 16:53 Reaction Details cefuroxime [From Ceftin] Allergy Swelling Verified 03/17/18 16:53 Of Face,Lips,& Throat cilastatin [From Primaxin] Allergy Swelling Verified 03/17/18 16:53 Of Face,Lips,& Throat ciprofloxacin [From Cipro] Allergy Swelling Verified 03/17/18 16:53 Of Face,Lips,& Throat clarithromycin [From Biaxin] Allergy Swelling Verified 03/17/18 16:53 Of Face,Lips,& Throat codeine Allergy Swelling Verified 03/17/18 16:53 Of Face,Lips,& Throat gentamicin Allergy Swelling Verified 03/17/18 16:53 Of Face,Lips,& Throat imipenem [From Primaxin] Allergy Swelling Verified 03/17/18 16:53 Of Face,Lips,& Throat lisinopril Allergy Nausea Verified 03/17/18 16:53 niacin Allergy Swelling Verified 03/17/18 16:53 pravastatin Allergy Unknown Verified 03/17/18 16:53 Reaction Details simvastatin [From Zocor] Allergy Nausea And Verified 03/17/18 16:53 Vomiting tetracycline Allergy Swelling Verified 03/17/18 16:53 Of Face,Lips,& Throat Home Medications: Home Medications Labetalol TAB* [Trandate TAB*] 100 mg PO DAILY 09/27/18 [History Confirmed 09/27] PMH/Surg Hx/FS Hx/Imm Hx Cardiovascular History: Hypertension Respiratory History: Asthma - Surgical History Surgical History: Yes Surgery Procedure, Year, and Place: 12/23 [facility] [place] - incision & drainaige, (right) foot sepsis following puncture injury. 02/17 [facility] [place] - hysterectomy, nasal FX as a child s/p nasal surgery in . 05/2014 [place]- (right) knee surgery - Family History Known Family History: Positive: Cardiac Disease - CHF Negative: Diabetes - Social History Alcohol Use: None Substance Use Type: None Smoking Status (MU): Never Smoked Tobacco Have You Smoked in the Last Year: No Review of Systems All Other Systems Reviewed And Are Negative: Yes ENT: Positive: Nasal Discharge Respiratory: Positive: Shortness Of Breath, Cough Physical Exam Triage Information Reviewed: Yes Appearance: Well-Appearing, No Pain Distress, Well-Nourished Vital Signs: Initial Vital Signs Temp 98.9 F 09/27/18 11:14 Pulse 96 09/27/18 11:14 Resp 17 09/27/18 11:14 BP 190/100 09/27/18 11:14 Pulse Ox 97 09/27/18 11:14 Eyes: Positive: Conjunctiva Clear ENT: Positive: Hearing grossly normal, Pharyngeal erythema, Uvula midline, Other - cerumen Neck: Positive: Supple, Nontender, No Lymphadenopathy Respiratory: Positive: Chest non-tender, Lungs clear, Normal breath sounds, No respiratory distress Cardiovascular: Positive: RRR, No Murmur, Pulses Normal, Brisk Capillary Refill Abdomen Description: Positive: Nontender Musculoskeletal: Positive: ROM Intact, No Edema Neurological: Positive: Alert Skin Exam: Normal UC Diagnostic Evaluation - Laboratory O2 Sat by Pulse Oximetry: 97 Respiratory Course/Dx - Course Course Of Treatment: patient with symptoms compatible with acute bronchitis and exacerbation of asthma, start doxycycline as prescribed, increase dose of advair , patient does not tolerate oral prednisone. Follow up with PCP in a week. - Differential Dx/Diagnosis Provider Diagnoses: bronchial asthma. HTN Discharge - Sign-Out/Discharge Documenting (check all that apply): Patient Departure All imaging exams completed and their final reports reviewed: No Studies - Discharge Plan Condition: Stable Disposition: HOME Patient Education Materials: Acute Bronchitis (ED), Fluticasone/Salmeterol (By breathing), Doxycycline (By mouth) Referrals: Lea Kennedy MD [Primary Care Provider] - - Billing Disposition and Condition Condition: STABLE Disposition: Home
== END 2018-09-27 12:37 | disposition home or self-care (01) ==
LOC: UCEAST 11:06
DX: J45.909 Unspecified asthma, uncomplicated (principal); I10 Essential (primary) hypertension; Z88.0 Allergy status to penicillin; Z88.8 Allergy status to other drugs, medicaments and biological substances; Z88.1 Allergy status to other antibiotic agents; Z88.5 Allergy status to narcotic agent
CPT/HCPCS: 99212; G0463

== ENCOUNTER 2019-01-22 18:21 | Observation (INO) | payer MEDICARE ==
[2019-01-22] MEDS ORDERED: NS 0.9% 1000 ML** 1,000 ML IV ONE (18:39)
[2019-01-22] MEDS ORDERED: Ondansetron INJ* 2 MG/ML VIAL IV ONE (18:40)
[2019-01-22] MEDS ORDERED: Diphenoxylat/Atrop 2.5-0.025M* 1 TAB PO ONE (18:40)
--- NOTE | 2019-01-22 18:44 | ED ---
Complex/Multi-Sys Presentation - HPI Summary HPI Summary: Pt is a 78 y/o female brought in by EMS who presents to the ED c/o N/V/D. She states the nausea began this afternoon and she had a total of 3 episodes of emesis. Pt also c/o watery diarrhea and right-sided flank pain that was relieved after vomiting. The pain was initially rated a 5/10 in severity, but now is rated a 0/10. She denies any congestion. As per EMS, they were called for sudden onset of SOB around 17:30. Pt was found to be [place] in color and using her at home oxygen. She denies any recent antibiotics. Pt notes she had toast for breakfast then soup for lunch. Pt is mildly tachycardic in the room with a HR of 101 bpm. She notes that she recently had testing done for her gallbladder which was all normal. PMHx asthma, COPD, HTN, HLD, GERD. - History Of Current Complaint Time Seen by Provider: 01/22/19 18:26 Hx Obtained From: Patient, EMS Onset/Duration: Gradual Onset, Lasting Hours - This afternoon, Still Present Timing: Constant Severity Currently: Moderate - 5/10 Location: Pain At: - right flank Aggravating Factor(s): Nothing Alleviating Factor(s): Vomiting Associated Signs And Symptoms: Positive: SOB, Nausea, Vomiting, Diarrhea - Allergies/Home Medications Allergies/Adverse Reactions: Allergies Allergy/AdvReac Type Severity Reaction Status Date / Time amoxicillin Allergy Swelling Verified 03/17/18 16:53 Of Face,Lips,& Throat azithromycin [From Zithromax] Allergy Swelling Verified 01/22/19 18:27 Of Face,Lips,& Throat carvedilol Allergy Unknown Verified 01/22/19 18:27 Reaction Details cefuroxime [From Ceftin] Allergy Swelling Verified 01/22/19 18:27 Of Face,Lips,& Throat cilastatin [From Primaxin] Allergy Swelling Verified 01/22/19 18:27 Of Face,Lips,& Throat ciprofloxacin [From Cipro] Allergy Swelling Verified 01/22/19 18:27 Of Face,Lips,& Throat clarithromycin [From Biaxin] Allergy Swelling Verified 01/22/19 18:27 Of Face,Lips,& Throat codeine Allergy Swelling Verified 01/22/19 18:27 Of Face,Lips,& Throat gentamicin Allergy Swelling Verified 01/22/19 18:27 Of Face,Lips,& Throat imipenem [From Primaxin] Allergy Swelling Verified 01/22/19 18:27 Of Face,Lips,& Throat lisinopril Allergy Nausea Verified 01/22/19 18:27 niacin Allergy Swelling Verified 03/17/18 16:53 pravastatin Allergy Unknown Verified 03/17/18 16:53 Reaction Details simvastatin [From Zocor] Allergy Nausea And Verified 03/17/18 16:53 Vomiting tetracycline Allergy Swelling Verified 03/17/18 16:53 Of Face,Lips,& Throat Home Medications: Home Medications Pantoprazole TAB * 40 mg PO DAILY 01/22/19 [History Confirmed 01/22/19] PMH/Surg Hx/FS Hx/Imm Hx Endocrine/Hematology History: Denies: Hx Diabetes, Hx Thyroid Disease Cardiovascular History: Reports: Hx Angina, Hx Coronary Artery Disease, Hx Hypercholesterolemia, Hx Hypertension - ON MEDS, Hx Valvular Heart Disease, Other Cardiovascular Problems/Disorders - 65 % BLOCKAGE Respiratory History: Reports: Hx Asthma, Hx Chronic Obstructive Pulmonary Disease (COPD), Hx Sleep Apnea - current CPAP user. GI History: Reports: Hx Gall Bladder Disease, Hx Gastroesophageal Reflux Disease , Hx Hiatal Hernia Denies: Hx Ulcer History: Reports: Other Problems/Disorders - (right) renal cyst Musculoskeletal History: Reports: Other Musculoskeletal History - (right) plantar fasciitis/bone spur Sensory History: Reports: Hx Contacts or Glasses Opthamlomology History: Reports: Hx Contacts or Glasses - Surgical History Surgery Procedure, Year, and Place: [place] [facility] [place], (right) foot sepsis following puncture injury. [place] [facility] [place], nasal FX as a child s/p nasal surgery in [place]. 05/2014 [place]- (right) knee surgery Infectious Disease History: No Infectious Disease History: Denies: Hx Hepatitis, Hx Human Immunodeficiency Virus (HIV), Traveled Outside the [place] in Last 30 Days - Family History Known Family History: Positive: Cardiac Disease - CHF Negative: Diabetes - Social History Alcohol Use: None Hx Substance Use: No Substance Use Type: Reports: None Hx Tobacco Use: No Smoking Status (MU): Never Smoked Tobacco Have You Smoked in the Last Year: No Review of Systems Negative: Other - congestion Positive: Shortness Of Breath Positive: Vomiting, Diarrhea, Nausea Positive: flank pain - right - resolved All Other Systems Reviewed And Are Negative: Yes Physical Exam - Summary Physical Exam Summary: VITAL SIGNS: Reviewed. GENERAL: Patient is a well-developed and nourished FEMALE who is lying comfortable in the stretcher. Patient is not in any acute respiratory distress. HEAD AND FACE: No signs of trauma. No ecchymosis, hematomas or skull depressions. No sinus tenderness. EYES: PERRLA, EOMI x 2, No injected conjunctiva, no nystagmus. EARS: Hearing grossly intact. Ear canals and tympanic membranes are within normal limits. MOUTH: Oropharynx within normal limits. NECK: Supple, trachea is midline, no adenopathy, no JVD, no carotid bruit, no c- spine tenderness, neck with full ROM. CHEST: Symmetric, no tenderness at palpation LUNGS: Clear to auscultation bilaterally. No wheezing or crackles. CVS: Mildly tachycardic with regular rhythm, S1 and S2 present, no murmurs or gallops appreciated. ABDOMEN: Soft, non-tender. Distended. No rebound no guarding, and no masses palpated. Bowel sounds are hyperactive. EXTREMITIES: FROM in all major joints, no edema, no cyanosis or clubbing. NEURO: Alert and oriented x 3. No acute neurological deficits. Speech is normal and follows commands. SKIN: Dry and warm Triage Information Reviewed: Yes Vital Signs On Initial Exam: Initial Vitals Temp Pulse Resp BP Pulse Ox 99.4 F 106 20 155/93 92 01/22/19 18:27 01/22/19 18:27 01/22/19 18:27 01/22/19 18:27 01/22/19 18:27 Vital Signs Reviewed: Yes Diagnostics - Vital Signs Vital Signs Temp Pulse Resp BP Pulse Ox 01/22/19 18:31 107 19 155/93 91 01/22/19 18:29 109 16 92 01/22/19 18:27 99.4 F 106 20 155/93 92 - Laboratory Result Diagrams: 01/22/19 19:00 01/22/19 19:00 Lab Statement: Any lab studies that have been ordered have been reviewed, and results considered in the medical decision making process. - CT CT Abdomen and Pelvis CT Interpretation Completed By: Radiologist Summary of CT Findings: CT abdomen and pelvis reveals, per radiologist, 1. Mild small bowel mucosal enhancement which can be seen with enteritis. No bowel obstruction. 2. Diverticulosis coli. No evidence of diverticulitis. ED physician has reviewed this radiology report. Complex Multi-Symp Course/Dx Course Of Treatment: Pt is a 78 y/o female brought in by EMS who presents to the ED c/o N/V/D. Physical exam: Bowel sounds are hyperactive. CT abdomen and pelvis reveals, per radiologist, 1. Mild small bowel mucosal enhancement which can be seen with enteritis. No bowel obstruction. 2. Diverticulosis coli. No evidence of diverticulitis. Bloodwork obtained. In the ED course, the patient recieved Lomotil, contrast, Reglan, flagyl, fluids, and Zofran. Consult with Dr. Ayala (hospitalist) at 2345. She agrees to admit the patient for further evaluation. The patient is agreeable with this plan. - Diagnoses Provider Diagnoses: Enteritis - Physician Notifications Discussed Care Of Patient With: Abiloa Ayala Time Discussed With Above Provider: 23:45 Instructed by Provider To: Other - Consult with Dr. Ayala (hospitalist) at 2345. She agrees to admit the patient for further evaluation. Discharge - Sign-Out/Discharge Documenting (check all that apply): Patient Departure - [place] [facility] [place] Received Moderate/Deep Sedation with Procedure: No - Discharge Plan Condition: Stable Disposition: ADMITTED TO [facility] Referrals: Lea Kennedy MD [Primary Care Provider] - - Attestation Statements Document Initiated by Scribe: Yes Documenting Scribe: Magaly Hernandez Provider For Whom Scribe is Documenting (Include Credential): Sylvia Grey MD Scribe Attestation: Magaly Burnett scribed for Sylvia Grey MD on 01/22/19 at 2349. Status of Scribe Document: Ready
[2019-01-22 19:10] LABS: Hematocrit 52 % (35-47); Hemoglobin 17.2 g/dl (12.0-16.0); Mean Corpuscular HGB Conc 33 g/dl (31-36); Mean Corpuscular Hemoglobin 31 pg (27-31); Mean Corpuscular Volume 93 fL (80-97); Mean Platelet Volume 8.9 fL (7.4-10.4); Platelet Count 336 10^3/ul (150-450); Red Blood Count 5.62 10^6/ul (4.00-5.40); Red Cell Distribution Width 13 % (10.5-15); White Blood Count 21.7 10^3/ul (3.5-10.8)
[2019-01-22 19:28] LABS: Albumin 4.5 g/dL (3.2-5.2); Albumin/Globulin Ratio 1.2 (1-3); BUN/Creatinine Ratio 27.5 (8-20); C Reactive Protein 6.46 mg/L (<8.01); Calcium 10.1 mg/dL (8.6-10.3); EGFR African American 72.2 (>60); EGFR Non-African American 59.6 (>60); Globulin 3.9 g/dL (2-4); Magnesium 2.1 mg/dL (1.9-2.7); Potassium 4.5 mmol/L (3.5-5.0); Total Protein 8.4 g/dL (6.4-8.9)
[2019-01-22] MEDS ORDERED: metroNIDAZOLE IV 500 MG/100ML* 500 MG/100 ML BAG IVPB ONE (19:30)
[2019-01-22 19:42] LABS: ABS Basophils 0.1 10^3/ul (0-0.2); ABS Eosinophils 0.2 10^3/ul (0-0.6); ABS Lymphocytes 0.9 10^3/ul (1.0-4.8); ABS Monocytes 1.4 10^3/ul (0-0.8); ABS Neutrophils 19.1 10^3/ul (1.5-7.7); ABS Nucleated RBC 0 10^3/ul; Lymphocyte % 4.1 %; Nucleated Red Blood Cells % 0
[2019-01-22] MEDS ORDERED: Iodixanol* (CONTRAST) 320 MG/ML 100 ML SDV IV ONE (20:08)
[2019-01-22] MEDS ORDERED: Metoclopramide IV* 5 MG/ML 2 ML VIAL IV SLOW PU ONE (23:09)
[2019-01-23] MEDS ORDERED: Ondansetron INJ* 2 MG/ML VIAL IV PRN (03:22)
[2019-01-23] MEDS ORDERED: Albuterol HFA INHALER* 8 gm MDI INH PRN (03:23)
[2019-01-23] MEDS ORDERED: NS 0.9% 1000 ML** 1,000 ML IV SCH (03:30)
--- NOTE | 2019-01-23 05:43 | HP ---
CC: Dr. Kennedy * HISTORY AND PHYSICAL: DATE OF ADMISSION: 01/23/19 PRIMARY CARE PROVIDER: Dr. Kennedy. CHIEF COMPLAINT: Nausea, vomiting, diarrhea. HISTORY OF PRESENT ILLNESS: Ms. Eastman is a 78-year-old female who states that she was in her usual state of health until approximately noon on 01/22/19 when she started to have profuse diarrhea. She states that she went 10 times over the course of just a few hours. She states it was just like pure water. She states that she then felt as if she needed to vomit, but she could not. Around 5:30 p.m. on 01/22/19, she began to vomit profusely. The patient was then brought to the emergency room for evaluation. The patient states that early on during her symptoms, she had what she would describe as right flank sharp pain. After she vomited, the pain improved. She no longer has any abdominal pain or discomfort. She states that she has had 3 loose bowel movements since arriving to the emergency room. She has not had any vomiting. She had continued to feel nauseous until she received an antiemetic. She has 2 grandchildren, who have both been sick with the same symptoms and were at her house just on 01/21/19. PAST MEDICAL HISTORY: 1. Psoriasis. 2. Gilbert's. 3. Hypertension. 4. Obesity. 5. Asthma. 6. CANDIDO. 7. CAD. PAST SURGICAL HISTORY: 1. Hysterectomy. 2. Right total knee replacement. ALLERGIES: AMOXICILLIN, AZITHROMYCIN, CARVEDILOL, CEFUROXIME, PRIMAXIN, CIPROFLOXACIN, CLARITHROMYCIN, CODEINE, GENTAMICIN, IMIPENEM, LISINOPRIL, NIACIN , PRAVASTATIN, SIMVASTATIN, and TETRACYCLINE. FAMILY HISTORY: Mom at the age of 85. She had a history of CVA and coronary disease. Dad in his 80s. He also had coronary disease. SOCIAL HISTORY: The patient is a nonsmoker. She does not drink alcohol. She is . She worked doing daycare and real estate. She has 3 children. She indicates that her children would be her healthcare proxies. REVIEW OF SYSTEMS: A complete 11-system review of systems was obtained. Pertinent positives and negatives are as per HPI and otherwise negative. PHYSICAL EXAMINATION GENERAL: The patient is a well-developed elderly female, seen sitting up in stretcher, in no acute distress. VITAL SIGNS: Blood pressure 170/81, pulse 97, respirations 21, temperature 99.4 , O2 saturation 98% on room air. HEENT: Pupils are equal and round. Extraocular muscles are intact. Oropharynx is clear. Oral mucosa is moist. There is no submandibular, cervical , or supraclavicular adenopathy. Thyroid is not enlarged. No thyroid nodules noted. PULMONARY: Lungs are clear to auscultation bilaterally. CARDIAC: Normal S1, S2. Regular rate and rhythm. I do not appreciate any murmurs. ABDOMEN: Bowel sounds are present. Abdomen is soft, nontender, nondistended. MUSCULOSKELETAL: There is no cyanosis or clubbing of the digits. There is full active range of motion of all 4 extremities. SKIN: Warm and dry. There are no rashes. NEURO: Cranial nerves II through XII are grossly intact. Sensation is intact to light touch throughout. Strength is 5/5 and symmetric in both upper and lower extremities bilaterally. PSYCH: The patient is alert. She is oriented x3. Affect appears appropriate. DIAGNOSTIC STUDIES/LAB DATA: WBC 21.7, hemoglobin 17.2, hematocrit 52, platelet 336. PTT 29.8. Sodium 139, potassium 4.5, chloride 108, CO2 23, BUN 25, creatinine 0.91, glucose 160, lactic acid 1.4, calcium 10.1, magnesium 2.1, bilirubin 1.0, AST 46, ALT 36, alk phos 90. CRP is 6.46. Albumin 4.5. Amylase 65, lipase 20. CT abdomen and pelvis reveals mild small bowel mucosal enhancement which can be seen with enteritis. No bowel obstruction is noted. Diverticulosis coli is noted. No evidence of diverticulitis. ASSESSMENT AND PLAN: Ms. Eastman is a 78-year-old female with a history of hypertension, coronary artery disease, asthma, and obstructive sleep apnea, who presents to the emergency room with a sudden onset of nausea, vomiting, and diarrhea. 1. Gastroenteritis. My suspicion is this represents a simple viral gastroenteritis. The patient has 2 grandchildren, with whom she was around the day prior to these symptoms beginning, who were suffering from the same symptoms. She seems to have already had some improvement in the emergency room. She will be admitted overnight to receive IV fluid hydration and antiemetics as needed. We will start a clear liquid diet in the morning and advance this as able. I suspect the patient will likely be able to be discharged home later on in the afternoon of 01/23/19. 2. Hypertension. I will continue the patient's usual regimen of Inspra, diltiazem CD, and labetalol. Her blood currently is quite elevated, but I do not believe that she had her evening dose of diltiazem CD. 3. Coronary artery disease. Continue aspirin and labetalol. 4. Obstructive sleep apnea. We will order CPAP to use while sleeping. 5. Asthma. Continue Advair and p.r.n. albuterol. 6. DVT prophylaxis: According to the Adult Thrombosis Prophylaxis Risk Factor Assessment Guide, the patient has a total risk factor score of 4, making her high risk. Heparin 5000 units subcutaneous q.8 hours will be utilized as DVT prophylaxis. 7. Code status is full. TIME SPENT: 65 minutes were spent admitting this patient. [id number]/[facility] #: [id number] MORIAH
[2019-01-23] MEDS ORDERED: Heparin VIAL(*) 5000 UNITS/ML VIAL (FIVE THOUSAND) SUBCUT SCH (06:00)
[2019-01-23 06:51] LABS: Hematocrit 44 % (35-47); Hemoglobin 14.3 g/dl (12.0-16.0); Mean Corpuscular HGB Conc 33 g/dl (31-36); Mean Corpuscular Hemoglobin 31 pg (27-31); Mean Corpuscular Volume 94 fL (80-97); Red Blood Count 4.66 10^6/ul (4.00-5.40); Red Cell Distribution Width 13 % (10.5-15); White Blood Count 14.1 10^3/ul (3.5-10.8)
[2019-01-23 07:17] LABS: Mean Platelet Volume 9.3 fL (7.4-10.4); Platelet Count 242 10^3/ul (150-450)
[2019-01-23] MEDS ORDERED: Pantoprazole TAB * 40 MG TAB PO SCH (09:00)
[2019-01-23] MEDS ORDERED: Aspirin EC TAB* 81 MG TAB.EC PO SCH (09:00)
[2019-01-23] MEDS ORDERED: CMCS:Epleronone (NF) 25 MG TAB PO SCH (09:00)
[2019-01-23] MEDS ORDERED: Diltiazem CD CAP* 240 MG PO SCH (09:00)
[2019-01-23] MEDS ORDERED: Fluticasone-Salmeterol 500-50* DISKUS INH SCH (09:00)
[2019-01-23] MEDS ORDERED: Labetalol TAB* 100 MG PO SCH (09:00)
[2019-01-23 10:57] LABS: Urine Appearance Clear; Urine Bacteria Absent (Absent); Urine Bilirubin Negative (Negative); Urine Blood Negative (Negative); Urine Color Yellow; Urine Glucose Negative (Negative); Urine Ketones Negative (Negative); Urine Nitrite Negative (Negative); Urine Protein Negative (Negative); Urine Red Blood Cell 1+(3-5/hpf) (Absent); Urine Specific Gravity 1.028 (1.010-1.030); Urine Squamous Epithelial Cell Present (Absent); Urine Urobilinogen Negative (Negative); Urine White Blood Cell Trace(0-5/hpf) (Absent)
[2019-01-23 12:46] VITALS: BP 151/53
[2019-01-23] MEDS ORDERED: Diltiazem CD CAP* 120 MG PO SCH (21:00)
--- NOTE | 2019-01-24 04:09 | DS ---
CC: Dr. Lea Kennedy * DISCHARGE SUMMARY: DATE OF ADMISSION: 01/23/19 DATE OF DISCHARGE: 01/23/19 PROVIDER: Sophie Randolph NP. ATTENDING PHYSICIAN: Dr. Pamella Riddle * (dictated by Sophie Randolph NP). PRIMARY CARE PROVIDER: Dr. Lea Kennedy. PRIMARY DIAGNOSIS: Gastroenteritis. SECONDARY DIAGNOSES: 1. Psoriasis. 2. Gilbert's. 3. Hypertension. 4. Obesity. 5. Asthma. 6. Obstructive sleep apnea. 7. Coronary artery disease. STUDIES COMPLETED WHILE IN THE HOSPITAL: She had a CT of the abdomen and pelvis on 01/22/19. Radiologist's impression: Mild small bowel enhancement, which can be seen with enteritis. No bowel obstruction, diverticulosis. No evidence of diverticulitis. DISCHARGE MEDICATIONS: No new home medications. Continued home medicines: 1. Inspra 2 tabs p.o. daily. 2. Pantoprazole 40 mg p.o. daily. 3. Diltiazem 120 mg p.o. b.i.d. 4. Aspirin 81 mg p.o. daily. 5. Albuterol HFA inhaler 1 tablet p.o. q.4 hours as needed. 6. Labetalol 100 mg p.o. daily. 7. Fluticasone-salmeterol 500/50 one puff b.i.d. HISTORY OF PRESENT ILLNESS AND HOSPITAL COURSE: Ms. Eastman is a 78-year-old female with past medical history significant for psoriasis, Gilbert's, hypertension, obesity, asthma, obstructive sleep apnea, and coronary artery disease, who was in her usual state of health until about noon on 01/22/19 when she started to have profuse diarrhea. She went 10 times over the course of a few hours and it was like pure water, but then she felt like she needed to vomit but could not. At around 5:30 p.m., she began vomiting profusely on 01/22. The patient was brought to the emergency room for further evaluation. The patient states that earlier on the day her symptoms, she would describe as right flank sharp pain. She vomited and the pain improved. She no longer has any abdominal pain or discomfort. She had 3 loose bowel movements since arriving to the emergency room. She has not had any further vomiting, but continues to be nauseated. She reports a recent sick contact with 2 grandchildren, but she had similar symptoms around the house on 01/21/19. The patient was admitted to the hospital for IV hydration. She was given IV hydration and this morning, the patient reports that she is feeling much better. She denies any further diarrhea or vomiting. She reports she has been able to tolerate a clear liquid breakfast. At this time, she feels stable to go home. At this time, she will be discharged back home. REVIEW OF SYSTEMS: There has been no documented fever. No unintended weight loss. She denies any nausea, vomiting. She denies any further diarrhea. She denies any chest pain or shortness of breath. She does report some right-sided pain, worse with palpation to the right lower rib area and posterior rib area. She denies any abdominal pain. PHYSICAL EXAMINATION: General: At this time, Ms. Eastman is sitting on the edge of the bed. She is alert and oriented x3. She is in no acute distress. HEENT: Head is atraumatic, normocephalic. Eyes: EOMs are intact. Sclerae anicteric and not pale. Oral mucosa appeared to be moist. Neck is supple. Lungs are clear to auscultation bilaterally. No wheezes, rales, or rhonchi. Cardiac: S1, S2. Regular rate and rhythm. No murmurs, rubs, or gallops. Abdomen: Soft and nontender. Bowel sounds are present x4. Extremities: She is able to move all 4 extremities with 5/5 strength. Neurologic: She is awake , alert, and oriented x3. Speech is clear. Thought process is intact. There are no gross focal deficits. Skin is intact. Vital Signs: Blood pressure 151/ 53, heart rate is 87, respirations 16, O2 saturation 97% on room air, temperature was 97.4. DISCHARGE PLAN: Ms. Eastman will be discharged back home. Activity: As tolerated. Diet: She should continue on a clear liquid diet and advanced to a bland diet as tolerated. 1. Gastroenteritis. As such her nausea and vomiting was related to gastroenteritis as the patient has recent exposure to sick grandchildren, she was given IV hydration overnight and her symptoms have improved. She has no further vomiting or diarrhea. I would recommend she continue on a clear liquid diet and advance her diet to a bland diet as tolerated. 2. Hypertension. She should resume her medications as previously prescribed. 3. Asthma. She should continue her meds as previously prescribed at home. FOLLOWUP: She can follow up with her primary care provider, Dr. Kennedy, in 1 to 2 weeks as needed. The patient was instructed to return to the emergency room for any chest pain, shortness of breath, unable to tolerate p.o. fluids or uncontrollable vomiting or any other concerning symptoms. This is a summarization of her hospitalization. If further details needed, please see the entire medical record. TIME SPENT: Time spent on this discharge was 45 minutes, greater than half that time was spent discussing discharge plans and instructions with the patient. CONDITION ON DISCHARGE: Stable. DISPOSITION: To home. SOPHIE RANDOLPH, IZZY [id number]/[facility] #: [id number] MORIAH
== END 2019-01-23 12:58 | disposition home or self-care (01) ==
LOC: ED 18:21 → MEDTELE 01-23 03:21
PROVIDERS: ADMIT Hospitalist; ATTEND Internal Medicine
DX: K52.9 Noninfective gastroenteritis and colitis, unspecified (principal); L40.9 Psoriasis, unspecified; E80.4 Gilbert syndrome; I10 Essential (primary) hypertension; E66.9 Obesity, unspecified; J45.909 Unspecified asthma, uncomplicated; G47.33 Obstructive sleep apnea (adult) (pediatric); I25.10 Atherosclerotic heart disease of native coronary artery without angina pectoris; Z79.82 Long term (current) use of aspirin; Z88.0 Allergy status to penicillin; Z96.651 Presence of right artificial knee joint; K21.9 Gastro-esophageal reflux disease without esophagitis; Z88.6 Allergy status to analgesic agent; R10.84 Generalized abdominal pain
CPT/HCPCS: 36415; 74177; 80053; 81003; 81015; 82150; 82270; 83605; 83630; 83690; 83735; 85025; 85027; 85730; 86140; 87040; 87045; 87046; 87077; 87086; 87088; 87493; 87899; 96365; 96366; 96375; 99285; A9270-GY; G0378; J1644; J2405; J2765; J3490; Q9967

== ENCOUNTER 2021-10-03 18:13 | Inpatient (IN) ==
[2021-10-03] MEDS ORDERED: HYDROmorphone 1 MG/1 ML SYRINGE IV ONE (18:32)
[2021-10-03] MEDS ORDERED: Ondansetron 4 mg VIAL 2 MG/ML 2 ml VIAL IV ONE (18:33)
[2021-10-03 18:38] LABS: ABS Basophils 0.1 10^3/ul (0-0.2); ABS Lymphocytes 1.8 10^3/ul (1.0-4.8); ABS Monocytes 0.9 10^3/ul (0-0.8); ABS Neutrophils 10.1 10^3/ul (1.5-7.7); Eosinophil % 0.4 %; Hematocrit 48 % (35-47); Hemoglobin 16.1 g/dL (12.0-16.0); Lymphocyte % 14.1 %; Mean Corpuscular HGB Conc 34 g/dL (31-36); Mean Corpuscular Hemoglobin 31 pg (27-31); Mean Corpuscular Volume 93 fL (80-97); Mean Platelet Volume 8.8 fL (7.4-10.4); Platelet Count 278 10^3/uL (150-450); Red Blood Count 5.15 10^6 /uL (3.70-4.87); Red Cell Distribution Width 13 % (10-15)
[2021-10-03] MEDS ORDERED: Albuterol/Ipratropium NEB.SOL (2.5/0.5 MG) 3 ML NEB.SOLN INH ONE (18:42)
[2021-10-03 18:44] LABS: Venous Bicarbonate HCO3 26.6 mmol/L (24-28)
[2021-10-03 18:51] LABS: Rapid COVID-19 Molecular Undetected (Undetected)
[2021-10-03] MEDS ORDERED: methylPREDNISolone 125 mg 2 ML VIAL IV ONE (18:51)
[2021-10-03 18:58] LABS: ALT 15 U/L (7-52); AST 20 U/L (13-39); Albumin 4.5 g/dL (3.2-5.2); Albumin/Globulin Ratio 1.3 (1-3); Alkaline Phosphatase 77 U/L (35-149); Anion Gap 8 mmol/L (2-11); Blood Urea Nitrogen 15 mg/dL (6-24); CO2 Carbon Dioxide 28 mmol/L (22-32); Calcium 9.5 mg/dL (8.6-10.3); Chloride 103 mmol/L (101-111); Globulin 3.5 g/dL (2-4); Glucose 193 mg/dL (70-100); Magnesium 1.9 mg/dL (1.9-2.7); Potassium 4.3 mmol/L (3.5-5.0); Sodium 139 mmol/L (135-145)
[2021-10-03 18:59] LABS: Troponin I 0.05 ng/mL (<0.03)
[2021-10-03 19:17] LABS: INR 1.17 (0.86-1.15)
[2021-10-03 19:18] LABS: Activated Partial Thrombo Time 29.3 seconds (26.0-38.0)
[2021-10-03] MEDS ORDERED: DOXYcycline 100 MG in NS 0.9% 250 ml 250 ML IVPB ONE (19:34)
[2021-10-03] MEDS ORDERED: NS 0.9% 250 ml 250 ML ONE (20:12)
[2021-10-03] MEDS ORDERED: Furosemide 40 mg/4 ml IV VIAL IV SLOW PU ONE (20:55)
[2021-10-03 21:22] LABS: PCO2 Arterial 50 mmHg (35-45); PO2 Arterial 338 mmHg (80-100)
[2021-10-03 22:18] LABS: Troponin I 0.51 ng/mL (<0.03)
[2021-10-03 22:20] LABS: Influenza A Molecular Negative (Negative); Influenza B Molecular Negative (Negative)
[2021-10-03 22:20] LABS: Rapid COVID-19 Molecular Undetected (Undetected)
[2021-10-03] MEDS: Heparin 5000 UNITS/ML 1 mL VIAL IV SCH (23:16)
[2021-10-03] MEDS: Heparin DRIP 25,000 UNITS BAG 25,000 UNITS/500 ML BAG IV SCH (23:18)
[2021-10-04] MEDS: Albuterol/Ipratropium NEB.SOL (2.5/0.5 MG) 3 ML NEB.SOLN INH SCH ×4 (00:41→19:28)
[2021-10-04] MEDS ORDERED: Ondansetron 4 mg VIAL 2 MG/ML 2 ml VIAL IV PRN (00:42)
[2021-10-04] MEDS ORDERED: Morphine 2 MG/ML SYRINGE IV PRN (00:42)
[2021-10-04] MEDS: methylPREDNISolone SOD 40 mg/ml 1 ml VIAL IV SCH ×3 (04:20→20:56)
[2021-10-04 05:24] LABS: Troponin I 0.92 ng/mL (<0.03)
[2021-10-04 05:41] LABS: ABS Lymphocytes 0.5 10^3/ul (1.0-4.8); ABS Monocytes 1.4 10^3/ul (0-0.8); ABS Neutrophils 16.9 10^3/ul (1.5-7.7); Hematocrit 45 % (35-47); Hemoglobin 14.9 g/dL (12.0-16.0); Lymphocyte % 2.9 %; Mean Corpuscular HGB Conc 33 g/dL (31-36); Mean Corpuscular Hemoglobin 31 pg (27-31); Mean Corpuscular Volume 93 fL (80-97); Mean Platelet Volume 9.5 fL (7.4-10.4); Platelet Count 237 10^3/uL (150-450); Red Blood Count 4.81 10^6 /uL (3.70-4.87); Red Cell Distribution Width 13 % (10-15); White Blood Count 18.8 10^3/uL (3.5-10.8)
[2021-10-04 06:05] LABS: Albumin 4.1 g/dL (3.2-5.2); Calcium 9.5 mg/dL (8.6-10.3); Magnesium 1.8 mg/dL (1.9-2.7); Potassium 4.6 mmol/L (3.5-5.0); Total Bilirubin 1.5 mg/dL (0.2-1.0)
[2021-10-04 06:11] LABS: Albumin/Globulin Ratio 1.4 (1-3); Total Protein 7.1 g/dL (6.4-8.9)
[2021-10-04] MEDS ORDERED: Magnesium Sulfate 2 gm BAG 2 GM/50 ML BAG IVPB ONE (06:11)
[2021-10-04] MEDS: Aspirin EC 81 mg TAB.EC (enteric coated) PO SCH (07:55)
[2021-10-04] MEDS: Heparin 5000 UNITS/ML 1 mL VIAL IV SCH ×3 (07:56→22:12)
[2021-10-04 11:18] LABS: Troponin I 1.19 ng/mL (<0.03)
[2021-10-04] MEDS ORDERED: Perflutren Lipid Microsphere 3 ML VIAL ONE (11:59)
[2021-10-04] MEDS: Doxycycline 100 MG in NS 0.9% 250 ML BAG IVPB SCH ×2 (12:44→20:39)
[2021-10-04] MEDS ORDERED: Furosemide 40 mg/4 ml IV VIAL IV SLOW PU ONE (17:24)
[2021-10-04] MEDS: Mometasone/Formoter 200/5 MDI INH SCH (20:10)
[2021-10-04] MEDS: Heparin DRIP 25,000 UNITS BAG 25,000 UNITS/500 ML BAG IV SCH (23:20)
[2021-10-05] MEDS: Albuterol/Ipratropium NEB.SOL (2.5/0.5 MG) 3 ML NEB.SOLN INH SCH ×4 (01:57→20:16)
[2021-10-05] MEDS: methylPREDNISolone SOD 40 mg/ml 1 ml VIAL IV SCH ×3 (04:00→21:44)
[2021-10-05 04:30] LABS: ABS Lymphocytes 0.9 10^3/ul (1.0-4.8); ABS Monocytes 0.6 10^3/ul (0-0.8); Hematocrit 40 % (35-47); Hemoglobin 13.2 g/dL (12.0-16.0); Lymphocyte % 6.4 %; Mean Corpuscular HGB Conc 33 g/dL (31-36); Mean Corpuscular Hemoglobin 30 pg (27-31); Mean Corpuscular Volume 92 fL (80-97); Mean Platelet Volume 9.2 fL (7.4-10.4); Platelet Count 216 10^3/uL (150-450); Red Blood Count 4.35 10^6 /uL (3.70-4.87); Red Cell Distribution Width 13 % (10-15); White Blood Count 13.4 10^3/uL (3.5-10.8)
[2021-10-05 04:47] LABS: Anion Gap 6 mmol/L (2-11); Blood Urea Nitrogen 44 mg/dL (6-24); CO2 Carbon Dioxide 26 mmol/L (22-32); Calcium 9.2 mg/dL (8.6-10.3); Chloride 104 mmol/L (101-111); Cholesterol 102 mg/dL; Glucose 186 mg/dL (70-100); LDL Cholesterol 41 mg/dL; Magnesium 2.3 mg/dL (1.9-2.7); Potassium 4.2 mmol/L (3.5-5.0); Sodium 136 mmol/L (135-145); Triglycerides 92 mg/dL
[2021-10-05 04:50] LABS: Troponin I 0.85 ng/mL (<0.03)
[2021-10-05] MEDS: Mometasone/Formoter 200/5 MDI INH SCH ×2 (07:02→20:16)
[2021-10-05] MEDS: Doxycycline 100 MG in NS 0.9% 250 ML BAG IVPB SCH ×2 (09:34→23:14)
[2021-10-05] MEDS: Aspirin EC 81 mg TAB.EC (enteric coated) PO SCH (09:57)
[2021-10-05] MEDS: Heparin 5000 UNITS/ML 1 mL VIAL IV SCH (13:17)
[2021-10-05] MEDS: Enoxaparin 40 MG/0.4 ML SYR SUBCUT SCH (21:41)
[2021-10-06] MEDS: Albuterol/Ipratropium NEB.SOL (2.5/0.5 MG) 3 ML NEB.SOLN INH SCH ×4 (01:32→19:21)
[2021-10-06] MEDS: Levalbuterol 1.25MG/0.5ML NEB.SOL INH PRN (05:37)
[2021-10-06 05:50] LABS: Hematocrit 41 % (35-47); Hemoglobin 13.7 g/dL (12.0-16.0); Mean Corpuscular HGB Conc 33 g/dL (31-36); Mean Corpuscular Hemoglobin 31 pg (27-31); Mean Corpuscular Volume 93 fL (80-97); Mean Platelet Volume 9.6 fL (7.4-10.4); Platelet Count 233 10^3/uL (150-450); Red Blood Count 4.44 10^6 /uL (3.70-4.87); Red Cell Distribution Width 14 % (10-15); White Blood Count 19.4 10^3/uL (3.5-10.8)
[2021-10-06 06:08] LABS: Magnesium 2.3 mg/dL (1.9-2.7); Potassium 4.5 mmol/L (3.5-5.0)
[2021-10-06 06:15] LABS: ABS Lymphocytes 0.6 10^3/ul (1.0-4.8); ABS Monocytes 1.6 10^3/ul (0-0.8); ABS Neutrophils 17.1 10^3/ul (1.5-7.7); Lymphocyte % 3.3 %
[2021-10-06] MEDS: Mometasone/Formoter 200/5 MDI INH SCH ×2 (06:53→19:48)
[2021-10-06] MEDS: Aspirin EC 81 mg TAB.EC (enteric coated) PO SCH (08:47)
[2021-10-06] MEDS: methylPREDNISolone SOD 40 mg/ml 1 ml VIAL IV SCH ×2 (08:47→21:31)
[2021-10-06] MEDS: Doxycycline 100 MG in NS 0.9% 250 ML BAG IVPB SCH ×2 (08:47→21:29)
[2021-10-06] MEDS: Enoxaparin 40 MG/0.4 ML SYR SUBCUT SCH (21:31)
[2021-10-07] MEDS: Albuterol/Ipratropium NEB.SOL (2.5/0.5 MG) 3 ML NEB.SOLN INH SCH ×5 (03:15→19:41)
[2021-10-07] MEDS: Aspirin EC 81 mg TAB.EC (enteric coated) PO SCH (08:59)
[2021-10-07] MEDS: methylPREDNISolone SOD 40 mg/ml 1 ml VIAL IV SCH (09:00)
[2021-10-07] MEDS: Doxycycline 100 MG in NS 0.9% 250 ML BAG IVPB SCH ×2 (09:30→21:28)
[2021-10-07] MEDS: Mometasone/Formoter 200/5 MDI INH SCH ×2 (09:32→20:56)
[2021-10-07] MEDS ORDERED: Senna TAB 8.6 mg TAB PO PRN (11:06)
[2021-10-07] MEDS: Enoxaparin 40 MG/0.4 ML SYR SUBCUT SCH (21:22)
[2021-10-08] MEDS: Albuterol/Ipratropium NEB.SOL (2.5/0.5 MG) 3 ML NEB.SOLN INH SCH ×4 (01:46→22:25)
[2021-10-08 07:32] LABS: Calcium 9.8 mg/dL (8.6-10.3); Potassium 4.5 mmol/L (3.5-5.0)
[2021-10-08] MEDS: Mometasone/Formoter 200/5 MDI INH SCH ×2 (07:46→22:35)
[2021-10-08] MEDS: Aspirin EC 81 mg TAB.EC (enteric coated) PO SCH (09:53)
[2021-10-08] MEDS: Doxycycline 100 MG in NS 0.9% 250 ML BAG IVPB SCH ×2 (09:53→21:24)
[2021-10-08] MEDS: Enoxaparin 40 MG/0.4 ML SYR SUBCUT SCH (21:23)
[2021-10-09] MEDS: Albuterol/Ipratropium NEB.SOL (2.5/0.5 MG) 3 ML NEB.SOLN INH SCH ×4 (03:34→21:08)
[2021-10-09 06:53] LABS: Hematocrit 42 % (35-47); Hemoglobin 13.7 g/dL (12.0-16.0); Mean Corpuscular HGB Conc 33 g/dL (31-36); Mean Corpuscular Hemoglobin 30 pg (27-31); Mean Corpuscular Volume 92 fL (80-97); Mean Platelet Volume 9.3 fL (7.4-10.4); Platelet Count 289 10^3/uL (150-450); Red Blood Count 4.58 10^6 /uL (3.70-4.87); Red Cell Distribution Width 13 % (10-15); White Blood Count 12.2 10^3/uL (3.5-10.8)
[2021-10-09 07:11] LABS: Calcium 9.6 mg/dL (8.6-10.3); Potassium 4.4 mmol/L (3.5-5.0)
[2021-10-09] MEDS: Mometasone/Formoter 200/5 MDI INH SCH ×2 (07:33→21:08)
[2021-10-09] MEDS: Doxycycline 100 MG in NS 0.9% 250 ML BAG IVPB SCH ×2 (08:09→20:42)
[2021-10-09] MEDS: Aspirin EC 81 mg TAB.EC (enteric coated) PO SCH (08:10)
[2021-10-09 08:35] LABS: ABS Lymphocytes 1.1 10^3/ul (1.0-4.8); ABS Monocytes 1.1 10^3/ul (0-0.8); Lymphocyte % 8.6 %
[2021-10-09 08:46] LABS: RBC Morphology Normal (Normal)
[2021-10-09] MEDS ORDERED: Furosemide 20 mg/2 ml IV VIAL IV SLOW PU ONE (11:24)
[2021-10-09] MEDS: Enoxaparin 40 MG/0.4 ML SYR SUBCUT SCH (20:42)
[2021-10-10] MEDS: Albuterol/Ipratropium NEB.SOL (2.5/0.5 MG) 3 ML NEB.SOLN INH SCH ×5 (03:32→22:15)
[2021-10-10 06:28] LABS: Magnesium 1.7 mg/dL (1.9-2.7); Potassium 4.1 mmol/L (3.5-5.0); eGFR CKD-EPI 88.1 (>60)
[2021-10-10] MEDS: Mometasone/Formoter 200/5 MDI INH SCH ×2 (07:42→19:43)
[2021-10-10] MEDS: Aspirin EC 81 mg TAB.EC (enteric coated) PO SCH (09:03)
[2021-10-10] MEDS: Doxycycline 100 MG in NS 0.9% 250 ML BAG IVPB SCH ×2 (09:04→21:00)
[2021-10-10] MEDS ORDERED: Magnesium Sulfate IV 1GM/100ML 1 GM/100 ML BAG IV ONE (12:30)
[2021-10-10] MEDS ORDERED: Furosemide 40 mg/4 ml IV VIAL IV SLOW PU ONE (13:41)
[2021-10-10 16:28] LABS: Urine Appearance Clear; Urine Bilirubin Negative (Negative); Urine Blood Negative (Negative); Urine Color Yellow; Urine Glucose Negative (Negative); Urine Ketones Negative (Negative); Urine Nitrite Negative (Negative); Urine Protein Negative (Negative); Urine Specific Gravity 1.016 (1.002-1.030); Urine Urobilinogen Negative (Negative)
[2021-10-10 16:39] LABS: Urine Amorphous Crystals Present (Absent); Urine Bacteria 1+ (Absent); Urine Red Blood Cell Absent (Absent); Urine Squamous Epithelial Cell Present (Absent); Urine White Blood Cell Trace(0-5/hpf) (Absent)
[2021-10-10] MEDS: Enoxaparin 40 MG/0.4 ML SYR SUBCUT SCH (21:17)
[2021-10-11] MEDS: Albuterol/Ipratropium NEB.SOL (2.5/0.5 MG) 3 ML NEB.SOLN INH SCH ×6 (00:26→19:52)
[2021-10-11 06:09] LABS: ABS Eosinophils 0.1 10^3/ul (0-0.6); ABS Lymphocytes 2.3 10^3/ul (1.0-4.8); ABS Monocytes 1.4 10^3/ul (0-0.8); ABS Neutrophils 9.1 10^3/ul (1.5-7.7); Eosinophil % 0.6 %; Hematocrit 42 % (35-47); Lymphocyte % 17.7 %; Mean Corpuscular HGB Conc 33 g/dL (31-36); Mean Corpuscular Hemoglobin 30 pg (27-31); Mean Corpuscular Volume 91 fL (80-97); Mean Platelet Volume 9.2 fL (7.4-10.4); Platelet Count 253 10^3/uL (150-450); Red Blood Count 4.62 10^6 /uL (3.70-4.87); Red Cell Distribution Width 13 % (10-15); White Blood Count 12.9 10^3/uL (3.5-10.8)
[2021-10-11 06:26] LABS: Calcium 8.9 mg/dL (8.6-10.3); Magnesium 1.8 mg/dL (1.9-2.7); Potassium 3.8 mmol/L (3.5-5.0); eGFR CKD-EPI 87.4 (>60)
[2021-10-11] MEDS: Mometasone/Formoter 200/5 MDI INH SCH ×2 (07:02→20:06)
[2021-10-11] MEDS: Aspirin EC 81 mg TAB.EC (enteric coated) PO SCH (09:03)
[2021-10-11] MEDS ORDERED: Furosemide 40 mg/4 ml IV VIAL IV SLOW PU ONE (10:34)
[2021-10-11] MEDS: Sodium Chloride(INHALANT) 7% 4 ML NEB.SOLN INH SCH (20:06)
[2021-10-11] MEDS: Enoxaparin 40 MG/0.4 ML SYR SUBCUT SCH (21:49)
[2021-10-12] MEDS: Aspirin EC 81 mg TAB.EC (enteric coated) PO SCH (08:15)
[2021-10-12 09:20] LABS: Calcium 9.1 mg/dL (8.6-10.3); Magnesium 1.8 mg/dL (1.9-2.7); eGFR CKD-EPI 87.8 (>60)
[2021-10-12] MEDS: Albuterol/Ipratropium NEB.SOL (2.5/0.5 MG) 3 ML NEB.SOLN INH SCH ×3 (09:22→20:02)
[2021-10-12] MEDS: Sodium Chloride(INHALANT) 7% 4 ML NEB.SOLN INH SCH ×3 (09:22→20:02)
[2021-10-12] MEDS: Mometasone/Formoter 200/5 MDI INH SCH ×2 (09:22→20:17)
[2021-10-12] MEDS ORDERED: Magnesium Sulfate IV 1GM/100ML 1 GM/100 ML BAG IV ONE (09:34)
[2021-10-12] MEDS: Enoxaparin 40 MG/0.4 ML SYR SUBCUT SCH (21:31)
[2021-10-13] MEDS: Sodium Chloride(INHALANT) 7% 4 ML NEB.SOLN INH SCH ×4 (00:54→21:39)
[2021-10-13] MEDS: Levalbuterol 1.25MG/0.5ML NEB.SOL INH PRN (02:32)
[2021-10-13] MEDS: Mometasone/Formoter 200/5 MDI INH SCH ×2 (06:35→21:39)
[2021-10-13] MEDS: Albuterol/Ipratropium NEB.SOL (2.5/0.5 MG) 3 ML NEB.SOLN INH SCH ×3 (06:35→21:41)
[2021-10-13] MEDS: Aspirin EC 81 mg TAB.EC (enteric coated) PO SCH (08:35)
[2021-10-13] MEDS ORDERED: Iohexol 350 (CONTRAST) 500 ML MDV IV ONE (11:59)
[2021-10-13] MEDS: Enoxaparin 40 MG/0.4 ML SYR SUBCUT SCH (21:52)
[2021-10-14 06:49] LABS: ABS Lymphocytes 2.1 10^3/ul (1.0-4.8); ABS Monocytes 1.5 10^3/ul (0-0.8); ABS Neutrophils 19.9 10^3/ul (1.5-7.7); Eosinophil % 0.2 %; Hematocrit 42 % (35-47); Lymphocyte % 8.8 %; Mean Corpuscular HGB Conc 33 g/dL (31-36); Mean Corpuscular Hemoglobin 31 pg (27-31); Mean Corpuscular Volume 92 fL (80-97); Mean Platelet Volume 9.5 fL (7.4-10.4); Platelet Count 227 10^3/uL (150-450); Red Blood Count 4.57 10^6 /uL (3.70-4.87); Red Cell Distribution Width 13 % (10-15); White Blood Count 23.5 10^3/uL (3.5-10.8)
[2021-10-14 07:05] LABS: Calcium 9.6 mg/dL (8.6-10.3); Potassium 4.1 mmol/L (3.5-5.0); eGFR CKD-EPI 83.9 (>60)
[2021-10-14] MEDS: Mometasone/Formoter 200/5 MDI INH SCH ×2 (09:01→19:24)
[2021-10-14] MEDS: Sodium Chloride(INHALANT) 7% 4 ML NEB.SOLN INH SCH ×3 (09:01→19:24)
[2021-10-14] MEDS: Albuterol/Ipratropium NEB.SOL (2.5/0.5 MG) 3 ML NEB.SOLN INH SCH ×3 (09:01→19:24)
[2021-10-14] MEDS: Aspirin EC 81 mg TAB.EC (enteric coated) PO SCH (10:06)
[2021-10-14] MEDS ORDERED: Furosemide 40 mg/4 ml IV VIAL IV ONE (14:39)
[2021-10-14] MEDS: Enoxaparin 40 MG/0.4 ML SYR SUBCUT SCH (20:37)
[2021-10-15] MEDS: Levalbuterol 1.25MG/0.5ML NEB.SOL INH PRN (01:03)
[2021-10-15 06:34] LABS: ABS Lymphocytes 1.9 10^3/ul (1.0-4.8); ABS Monocytes 1.3 10^3/ul (0-0.8); ABS Neutrophils 16.8 10^3/ul (1.5-7.7); Eosinophil % 0.1 %; Hematocrit 38 % (35-47); Hemoglobin 12.8 g/dL (12.0-16.0); Lymphocyte % 9.3 %; Mean Corpuscular HGB Conc 34 g/dL (31-36); Mean Corpuscular Hemoglobin 31 pg (27-31); Mean Corpuscular Volume 92 fL (80-97); Mean Platelet Volume 9.9 fL (7.4-10.4); Platelet Count 207 10^3/uL (150-450); Red Blood Count 4.19 10^6 /uL (3.70-4.87); Red Cell Distribution Width 13 % (10-15)
[2021-10-15 06:54] LABS: Calcium 9.1 mg/dL (8.6-10.3); Potassium 3.8 mmol/L (3.5-5.0); eGFR CKD-EPI 86.8 (>60)
[2021-10-15] MEDS: Sodium Chloride(INHALANT) 7% 4 ML NEB.SOLN INH SCH ×3 (07:04→21:24)
[2021-10-15] MEDS: Albuterol/Ipratropium NEB.SOL (2.5/0.5 MG) 3 ML NEB.SOLN INH SCH ×3 (07:04→21:23)
[2021-10-15] MEDS: Mometasone/Formoter 200/5 MDI INH SCH ×2 (07:05→21:31)
[2021-10-15] MEDS: Aspirin EC 81 mg TAB.EC (enteric coated) PO SCH (09:37)
[2021-10-15] MEDS: Enoxaparin 40 MG/0.4 ML SYR SUBCUT SCH (22:28)
[2021-10-16] MEDS: Mometasone/Formoter 200/5 MDI INH SCH (08:32)
[2021-10-16] MEDS: Sodium Chloride(INHALANT) 7% 4 ML NEB.SOLN INH SCH ×2 (08:33→13:07)
[2021-10-16] MEDS: Albuterol/Ipratropium NEB.SOL (2.5/0.5 MG) 3 ML NEB.SOLN INH SCH ×2 (08:33→13:07)
[2021-10-16] MEDS: Aspirin EC 81 mg TAB.EC (enteric coated) PO SCH (10:15)
[2021-10-16 12:22] VITALS: BP 129/55
== END 2021-10-16 16:05 | disposition home health service (06) | DRG 193 ==
LOC: ED 18:13 → SUATTDRO 21:08 → EDHOLD 21:08 → ICU 21:37 → MEDTELE 10-05 22:42
PROVIDERS: ADMIT Surgery Surgical Critical Care; ATTEND Hospitalist

== ENCOUNTER 2021-10-24 21:33 | Inpatient (IN) ==
[2021-10-24 22:05] LABS: ABS Basophils 0.1 10^3/ul (0-0.2); ABS Eosinophils 0.2 10^3/ul (0-0.6); ABS Lymphocytes 1.6 10^3/ul (1.0-4.8); ABS Monocytes 0.8 10^3/ul (0-0.8); ABS Neutrophils 8.9 10^3/ul (1.5-7.7); Eosinophil % 1.9 %; Hematocrit 41 % (35-47); Hemoglobin 13.5 g/dL (12.0-16.0); Lymphocyte % 13.6 %; Mean Corpuscular HGB Conc 33 g/dL (31-36); Mean Corpuscular Hemoglobin 30 pg (27-31); Mean Corpuscular Volume 92 fL (80-97); Mean Platelet Volume 8.9 fL (7.4-10.4); Platelet Count 250 10^3/uL (150-450); Red Blood Count 4.45 10^6 /uL (3.70-4.87); Red Cell Distribution Width 13 % (10-15); White Blood Count 11.7 10^3/uL (3.5-10.8)
[2021-10-24 22:11] LABS: INR 1.26 (0.86-1.15)
[2021-10-24 22:25] LABS: ALT 22 U/L (7-52); AST 20 U/L (13-39); Albumin 3.5 g/dL (3.2-5.2); Albumin/Globulin Ratio 1.1 (1-3); Alkaline Phosphatase 71 U/L (35-149); Anion Gap 7 mmol/L (2-11); Blood Urea Nitrogen 27 mg/dL (6-24); CO2 Carbon Dioxide 27 mmol/L (22-32); Chloride 106 mmol/L (101-111); Globulin 3.3 g/dL (2-4); Glucose 159 mg/dL (70-100); Sodium 140 mmol/L (135-145); Total Protein 6.8 g/dL (6.4-8.9); eGFR CKD-EPI 56.6 (>60)
[2021-10-24 22:27] LABS: Troponin I 0.12 ng/mL (<0.03)
[2021-10-24] MEDS ORDERED: Albuterol/Ipratropium NEB.SOL (2.5/0.5 MG) 3 ML NEB.SOLN INH ONE (23:24)
[2021-10-25] MEDS ORDERED: Furosemide 40 mg/4 ml IV VIAL IV SLOW PU ONE (00:38)
[2021-10-25] MEDS ORDERED: Heparin DRIP 25,000 UNITS BAG 25,000 UNITS/500 ML BAG IV SCH (00:45)
[2021-10-25 00:55] LABS: Rapid COVID-19 Molecular Undetected (Undetected)
[2021-10-25] MEDS ORDERED: Albuterol 2.5mg/3 ml (0.083%) NEB.SOLN INH PRN (00:56)
[2021-10-25] MEDS ORDERED: Heparin 5000 UNITS/ML 1 mL VIAL IV SCH (01:00)
[2021-10-25 01:02] LABS: Troponin I 1.26 ng/mL (<0.03)
[2021-10-25] MEDS ORDERED: Diltiazem IV push/loading dose 5 MG/ML 5 ML vial (25 mg) IV SLOW PU ONE (01:12)
[2021-10-25] MEDS: Nitro 2% OINT (Nitroglycerin) 1 INCH/PAK TOPICAL SCH ×3 (01:28→13:59)
[2021-10-25] MEDS: Diltiazem IV BAG D5W Premix 125 MG/125 ML BAG IV SCH ×2 (01:58→13:02)
[2021-10-25 04:43] LABS: ABS Eosinophils 0.1 10^3/ul (0-0.6); ABS Lymphocytes 0.6 10^3/ul (1.0-4.8); ABS Monocytes 0.4 10^3/ul (0-0.8); ABS Neutrophils 8.2 10^3/ul (1.5-7.7); Eosinophil % 0.8 %; Hematocrit 42 % (35-47); Hemoglobin 13.9 g/dL (12.0-16.0); Mean Corpuscular HGB Conc 33 g/dL (31-36); Mean Corpuscular Hemoglobin 30 pg (27-31); Mean Corpuscular Volume 93 fL (80-97); Platelet Count 257 10^3/uL (150-450); Red Blood Count 4.56 10^6 /uL (3.70-4.87); Red Cell Distribution Width 14 % (10-15); White Blood Count 9.3 10^3/uL (3.5-10.8)
[2021-10-25 05:01] LABS: INR 1.19 (0.86-1.15)
[2021-10-25 05:09] LABS: Troponin I 2.75 ng/mL (<0.03)
[2021-10-25 05:20] LABS: Calcium 9.1 mg/dL (8.6-10.3); Potassium 4.3 mmol/L (3.5-5.0); eGFR CKD-EPI 59.4 (>60)
[2021-10-25] MEDS: Aspirin EC 81 mg TAB.EC (enteric coated) PO SCH (07:50)
[2021-10-25 08:23] LABS: Troponin I 2.91 ng/mL (<0.03)
[2021-10-25] MEDS ORDERED: Aspirin EC 81 mg TAB.EC (enteric coated) PO SCH (09:00)
[2021-10-25] MEDS: Mometasone/Formoter 200/5 MDI INH SCH ×2 (09:06→20:03)
[2021-10-25] MEDS: Albuterol HFA INHALER 8 gm MDI INH PRN (09:06)
[2021-10-25] MEDS ORDERED: fentaNYL 100 mcg/2 ml 50 MCG/ML VIAL ONE (13:24)
[2021-10-25] MEDS ORDERED: Midazolam 5 mg/5 ml VIAL 1 mg/ml 5 ml VIAL (5 mg) ONE (13:24)
[2021-10-25] MEDS ORDERED: VERAPAMIL 2.5 MG/ML 2 ML VIAL ** 5 mg/2 ml ONE (13:25)
[2021-10-25] MEDS ORDERED: Iohexol 350 (CONTRAST) 200 ML MDV IV ONE ×3 (13:29→14:53)
[2021-10-25] MEDS ORDERED: nitroGLYCERIN DRIP 25,000 MCG/250 ML BTL ONE (13:29)
[2021-10-25] MEDS ORDERED: Heparin 2 UNITS/ML 1000 mls 2,000 ML IV ONE (13:29)
[2021-10-25] MEDS ORDERED: Lidocaine 1% VIAL 10 MG/ML VIAL ONE (13:29)
[2021-10-25] MEDS ORDERED: Heparin 1,000 UNIT/ML 10 ml (10,000 UNITS) CATHLAB/DIALYSIS ONE (13:32)
[2021-10-25] MEDS ORDERED: Bivalirudin 250 MG VIAL ONE (14:18)
[2021-10-25] MEDS ORDERED: NS 0.9% 1000 ml BAG 1,000 ML IV SCH (15:45)
[2021-10-25] MEDS ORDERED: Nitro Patch Removal Reminder TOPICAL SCH (20:00)
[2021-10-26 06:17] LABS: ABS Monocytes 0.8 10^3/ul (0-0.8); ABS Neutrophils 7.3 10^3/ul (1.5-7.7); Eosinophil % 0.1 %; Hematocrit 41 % (35-47); Hemoglobin 13.3 g/dL (12.0-16.0); Lymphocyte % 10.4 %; Mean Corpuscular HGB Conc 33 g/dL (31-36); Mean Corpuscular Hemoglobin 30 pg (27-31); Mean Corpuscular Volume 92 fL (80-97); Mean Platelet Volume 8.7 fL (7.4-10.4); Platelet Count 221 10^3/uL (150-450); Red Cell Distribution Width 13 % (10-15); White Blood Count 9.1 10^3/uL (3.5-10.8)
[2021-10-26 06:26] LABS: Calcium 8.9 mg/dL (8.6-10.3); Potassium 4.5 mmol/L (3.5-5.0)
[2021-10-26 06:32] LABS: eGFR CKD-EPI 82.6 (>60)
[2021-10-26] MEDS: Albuterol HFA INHALER 8 gm MDI INH PRN (07:16)
[2021-10-26] MEDS: Mometasone/Formoter 200/5 MDI INH SCH ×2 (07:16→20:50)
[2021-10-26] MEDS: Aspirin EC 81 mg TAB.EC (enteric coated) PO SCH (08:00)
[2021-10-26] MEDS: Nitro 2% OINT (Nitroglycerin) 1 INCH/PAK TOPICAL SCH ×2 (08:00→14:14)
[2021-10-27 05:35] LABS: ABS Eosinophils 0.1 10^3/ul (0-0.6); ABS Lymphocytes 1.7 10^3/ul (1.0-4.8); ABS Monocytes 0.8 10^3/ul (0-0.8); ABS Neutrophils 5.4 10^3/ul (1.5-7.7); Eosinophil % 1.8 %; Hematocrit 40 % (35-47); Hemoglobin 13.1 g/dL (12.0-16.0); Lymphocyte % 21.3 %; Mean Corpuscular HGB Conc 33 g/dL (31-36); Mean Corpuscular Hemoglobin 31 pg (27-31); Mean Corpuscular Volume 93 fL (80-97); Mean Platelet Volume 8.5 fL (7.4-10.4); Platelet Count 227 10^3/uL (150-450); Red Cell Distribution Width 14 % (10-15); White Blood Count 8.1 10^3/uL (3.5-10.8)
[2021-10-27] MEDS: Aspirin EC 81 mg TAB.EC (enteric coated) PO SCH (07:44)
[2021-10-27] MEDS: Nitro 2% OINT (Nitroglycerin) 1 INCH/PAK TOPICAL SCH ×2 (07:45→13:30)
[2021-10-27] MEDS: Albuterol HFA INHALER 8 gm MDI INH PRN ×2 (07:49→20:50)
[2021-10-27] MEDS: Mometasone/Formoter 200/5 MDI INH SCH ×2 (07:50→20:50)
[2021-10-27] MEDS ORDERED: Polyethylene Glycol 3350 17 GM PACKET PO PRN (08:40)
[2021-10-27] MEDS: Senna TAB 8.6 mg TAB PO SCH (09:10)
[2021-10-27] MEDS ORDERED: Furosemide 20 mg/2 ml IV VIAL IV SLOW PU ONE (12:41)
[2021-10-28 04:59] LABS: ABS Eosinophils 0.2 10^3/ul (0-0.6); ABS Lymphocytes 1.1 10^3/ul (1.0-4.8); ABS Monocytes 0.6 10^3/ul (0-0.8); ABS Neutrophils 3.5 10^3/ul (1.5-7.7); Eosinophil % 3.1 %; Hematocrit 41 % (35-47); Hemoglobin 13.6 g/dL (12.0-16.0); Lymphocyte % 19.8 %; Mean Corpuscular HGB Conc 33 g/dL (31-36); Mean Corpuscular Hemoglobin 30 pg (27-31); Mean Corpuscular Volume 91 fL (80-97); Mean Platelet Volume 8.5 fL (7.4-10.4); Platelet Count 220 10^3/uL (150-450); Red Blood Count 4.48 10^6 /uL (3.70-4.87); Red Cell Distribution Width 13 % (10-15); White Blood Count 5.4 10^3/uL (3.5-10.8)
[2021-10-28 05:13] LABS: Magnesium 1.9 mg/dL (1.9-2.7); Phosphorus 3.2 mg/dL (2.5-5.0)
[2021-10-28] MEDS ORDERED: Magnesium Sulfate IV 1GM/100ML 1 GM/100 ML BAG IV ONE (07:40)
[2021-10-28] MEDS: Aspirin EC 81 mg TAB.EC (enteric coated) PO SCH (08:13)
[2021-10-28] MEDS: Senna TAB 8.6 mg TAB PO SCH (08:14)
[2021-10-28] MEDS ORDERED: Magnesium Sulfate 2 gm BAG 0 GM/0 ML BAG ONE (08:21)
[2021-10-28 08:25] VITALS: BP 133/66
[2021-10-28] MEDS ORDERED: Nystatin SUSPENSION 100,000 UNITS/ML UDC PO ONE (09:09)
[2021-10-28] MEDS: Mometasone/Formoter 200/5 MDI INH SCH (09:43)
[2021-10-28] MEDS: Albuterol HFA INHALER 8 gm MDI INH PRN (09:43)
== END 2021-10-28 11:55 | disposition home or self-care (01) | DRG 249 ==
LOC: ED 21:33 → ICU 10-25 00:38
PROVIDERS: ADMIT Hospitalist; ATTEND Internal Medicine

== ENCOUNTER 2022-07-14 22:16 | Inpatient (IN) ==
[2022-07-15 00:08] LABS: Urine Appearance Cloudy; Urine Color Red
[2022-07-15 00:10] LABS: Urine Specific Gravity 1.017 (1.002-1.030)
[2022-07-15 00:19] LABS: Urine White Blood Cell 1+(6-10/hpf) (Absent)
[2022-07-15 00:20] LABS: Urine Bacteria 2+ (Absent); Urine Red Blood Cell 3+(>10/hpf) (Absent); Urine Squamous Epithelial Cell Present (Absent)
[2022-07-15 00:26] LABS: ABS Basophils 0.1 10^3/ul (0-0.2); ABS Eosinophils 0.3 10^3/ul (0-0.6); ABS Lymphocytes 2.7 10^3/ul (1.0-4.8); ABS Monocytes 1.1 10^3/ul (0-0.8); ABS Neutrophils 6.3 10^3/ul (1.5-7.7); Eosinophil % 3.1 %; Hematocrit 44 % (35-47); Hemoglobin 14.5 g/dL (12.0-16.0); Mean Corpuscular HGB Conc 33 g/dL (31-36); Mean Corpuscular Hemoglobin 30 pg (27-31); Mean Corpuscular Volume 90 fL (80-97); Mean Platelet Volume 8.8 fL (7.4-10.4); Nucleated Red Blood Cells % 0.1; Platelet Count 260 10^3/uL (150-450); Red Blood Count 4.92 10^6 /uL (3.70-4.87); Red Cell Distribution Width 14 % (10-15); White Blood Count 10.4 10^3/uL (3.5-10.8)
[2022-07-15 01:31] LABS: Albumin 4.1 g/dL (3.2-5.2); Calcium 9.4 mg/dL (8.6-10.3); Potassium 4.6 mmol/L (3.5-5.0); Total Bilirubin 1.2 mg/dL (0.2-1.0)
[2022-07-15 01:37] LABS: Albumin/Globulin Ratio 1.3 (1-3); C Reactive Protein 3.92 mg/L (<8.01); Globulin 3.2 g/dL (2-4); Total Protein 7.3 g/dL (6.4-8.9); eGFR CKD-EPI 51.9 (>60)
[2022-07-15] MEDS ORDERED: NS 0.9% 500 ml BAG 500 ML IV ONE (04:10)
[2022-07-15] MEDS ORDERED: Ondansetron 4 mg VIAL 2 MG/ML 2 ml VIAL IV PRN (04:11)
[2022-07-15] MEDS ORDERED: NS 0.9% 1000 ml BAG 1,000 ML IV SCH (04:15)
[2022-07-15] MEDS: Albuterol 2.5mg/3 ml (0.083%) NEB.SOLN INH PRN (04:29)
[2022-07-15 04:47] LABS: ABS Basophils 0.1 10^3/ul (0-0.2); ABS Eosinophils 0.3 10^3/ul (0-0.6); ABS Lymphocytes 2.6 10^3/ul (1.0-4.8); ABS Neutrophils 5.7 10^3/ul (1.5-7.7); Eosinophil % 3.4 %; Hematocrit 39 % (35-47); Hemoglobin 12.7 g/dL (12.0-16.0); Lymphocyte % 26.9 %; Mean Corpuscular HGB Conc 32 g/dL (31-36); Mean Corpuscular Hemoglobin 30 pg (27-31); Mean Corpuscular Volume 91 fL (80-97); Mean Platelet Volume 8.8 fL (7.4-10.4); Platelet Count 233 10^3/uL (150-450); Red Blood Count 4.31 10^6 /uL (3.70-4.87); Red Cell Distribution Width 14 % (10-15); White Blood Count 9.7 10^3/uL (3.5-10.8)
[2022-07-15 05:04] LABS: INR 1.35 (0.89-1.11)
[2022-07-15] MEDS ORDERED: Albuterol HFA INHALER 8 gm MDI INH PRN (05:05)
[2022-07-15 05:30] LABS: Calcium 8.9 mg/dL (8.6-10.3); Potassium 4.1 mmol/L (3.5-5.0); eGFR CKD-EPI 62.2 (>60)
[2022-07-15] MEDS: CMCS:Epleronone 25 mg TAB (NF) PO SCH (14:13)
[2022-07-15] MEDS: Enoxaparin 40 MG/0.4 ML SYR SUBCUT SCH (18:15)
[2022-07-16] MEDS: Mometasone/Formoter 200/5 MDI INH SCH ×2 (07:37→19:27)
[2022-07-16] MEDS: Albuterol 2.5mg/3 ml (0.083%) NEB.SOLN INH PRN (07:52)
[2022-07-16] MEDS: CMCS:Epleronone 25 mg TAB (NF) PO SCH (10:03)
[2022-07-16] MEDS: Enoxaparin 40 MG/0.4 ML SYR SUBCUT SCH (18:15)
[2022-07-17] MEDS: Mometasone/Formoter 200/5 MDI INH SCH ×2 (07:19→19:22)
[2022-07-17] MEDS: Albuterol 2.5mg/3 ml (0.083%) NEB.SOLN INH PRN ×2 (07:22→22:59)
[2022-07-17 09:30] LABS: ABS Eosinophils 0.3 10^3/ul (0-0.6); ABS Lymphocytes 1.9 10^3/ul (1.0-4.8); ABS Monocytes 0.8 10^3/ul (0-0.8); Eosinophil % 3.9 %; Hematocrit 43 % (35-47); Hemoglobin 14.1 g/dL (12.0-16.0); Mean Corpuscular HGB Conc 33 g/dL (31-36); Mean Corpuscular Hemoglobin 30 pg (27-31); Mean Corpuscular Volume 91 fL (80-97); Mean Platelet Volume 9.2 fL (7.4-10.4); Nucleated Red Blood Cells % 0.1; Platelet Count 252 10^3/uL (150-450); Red Blood Count 4.74 10^6 /uL (3.70-4.87); Red Cell Distribution Width 14 % (10-15); White Blood Count 8.1 10^3/uL (3.5-10.8)
[2022-07-17] MEDS: CMCS:Epleronone 25 mg TAB (NF) PO SCH (10:01)
[2022-07-17] MEDS: Enoxaparin 100 MG/ML SYR SUBCUT SCH ×2 (13:21→23:02)
[2022-07-17 15:10] LABS: Calcium 9.5 mg/dL (8.6-10.3); Magnesium 1.8 mg/dL (1.9-2.7); Potassium 4.6 mmol/L (3.5-5.0); eGFR CKD-EPI 67.4 (>60)
[2022-07-18] MEDS: Mometasone/Formoter 200/5 MDI INH SCH ×2 (07:07→20:02)
[2022-07-18] MEDS: Albuterol 2.5mg/3 ml (0.083%) NEB.SOLN INH PRN (07:09)
[2022-07-18] MEDS: CMCS:Epleronone 25 mg TAB (NF) PO SCH (09:33)
[2022-07-18] MEDS: Enoxaparin 100 MG/ML SYR SUBCUT SCH (13:11)
[2022-07-18] MEDS ORDERED: Ondansetron 4 mg VIAL 2 MG/ML 2 ml VIAL IV PRN (13:51)
[2022-07-18] MEDS ORDERED: Naloxone 0.4 mg VIAL 0.4 mg/ml 1 ml VIAL IV PRN (13:51)
[2022-07-18] MEDS ORDERED: fentaNYL 100 mcg/2 ml 50 MCG/ML VIAL IV PRN (13:51)
[2022-07-18] MEDS ORDERED: oxyCODONE/Acetamin 5/325 mg TAB PO PRN (13:51)
[2022-07-19] MEDS ORDERED: Furosemide 20 mg/2 ml IV VIAL IV SCH
[2022-07-19] MEDS ORDERED: Metoprolol Tartrate 5 mg VIAL 5 ml VIAL (1 mg/ml) IV SCH
[2022-07-19] MEDS ORDERED: Ondansetron 4 mg VIAL 2 MG/ML 2 ml VIAL IV SCH
[2022-07-19] MEDS ORDERED: Midazolam 2 mg/2 ml VIAL 1 mg/ml 2 ml VIAL (2 mg) IV SLOW PU SCH
[2022-07-19] MEDS ORDERED: Propofol 10 MG/ML 20 ML BTL IV SCH
[2022-07-19] MEDS ORDERED: Lidocaine 2% PF 5 ML VIAL INJ SCH
[2022-07-19] MEDS ORDERED: Ketamine HCL 50 mg/ml 10 ml VIAL (500 MG) IV SCH
[2022-07-19] MEDS ORDERED: fentaNYL 100 mcg/2 ml 50 MCG/ML VIAL IV SCH ×2
[2022-07-19 05:45] LABS: ABS Eosinophils 0.3 10^3/ul (0-0.6); ABS Lymphocytes 2.1 10^3/ul (1.0-4.8); ABS Monocytes 0.7 10^3/ul (0-0.8); ABS Neutrophils 3.3 10^3/ul (1.5-7.7); Hematocrit 40 % (35-47); Hemoglobin 13.4 g/dL (12.0-16.0); Lymphocyte % 32.7 %; Mean Corpuscular HGB Conc 33 g/dL (31-36); Mean Corpuscular Hemoglobin 30 pg (27-31); Mean Corpuscular Volume 89 fL (80-97); Mean Platelet Volume 8.9 fL (7.4-10.4); Nucleated Red Blood Cells % 0.1; Platelet Count 221 10^3/uL (150-450); Red Blood Count 4.52 10^6 /uL (3.70-4.87); Red Cell Distribution Width 13 % (10-15); White Blood Count 6.5 10^3/uL (3.5-10.8)
[2022-07-19] MEDS: Albuterol 2.5mg/3 ml (0.083%) NEB.SOLN INH PRN (05:52)
[2022-07-19] MEDS: Mometasone/Formoter 200/5 MDI INH SCH ×2 (05:57→19:58)
[2022-07-19] MEDS ORDERED: Buffered Lidocaine 1% SYRIN 1 ml INTRADERM ONE (06:00)
[2022-07-19] MEDS ORDERED: Lactated Ringers 1000 ml BAG 1,000 ML IV SCH (06:00)
[2022-07-19 06:02] LABS: Calcium 9.3 mg/dL (8.6-10.3); HDL Cholesterol 37.8 mg/dL; Magnesium 1.8 mg/dL (1.9-2.7); Phosphorus 3.6 mg/dL (2.5-5.0); Potassium 4.6 mmol/L (3.5-5.0); eGFR CKD-EPI 73.5 (>60)
[2022-07-19] MEDS ORDERED: Magnesium Sulfate 2 gm BAG 2 GM/50 ML BAG IVPB ONE (07:39)
[2022-07-19] MEDS: CMCS:Epleronone 25 mg TAB (NF) PO SCH (13:36)
[2022-07-19] MEDS ORDERED: Metoclopramide 5 MG/ML VIAL (10 mg) IV PRN (14:00)
[2022-07-19] MEDS ORDERED: Metoprolol Tartrate 5 mg VIAL 5 ml VIAL (1 mg/ml) IV ONE (15:23)
[2022-07-20 06:49] LABS: Hematocrit 41 % (35-47); Hemoglobin 13.6 g/dL (12.0-16.0); Mean Corpuscular HGB Conc 33 g/dL (31-36); Mean Corpuscular Hemoglobin 30 pg (27-31); Mean Corpuscular Volume 91 fL (80-97); Mean Platelet Volume 9.5 fL (7.4-10.4); Platelet Count 207 10^3/uL (150-450); Red Blood Count 4.52 10^6 /uL (3.70-4.87); Red Cell Distribution Width 13 % (10-15); White Blood Count 8.9 10^3/uL (3.5-10.8)
[2022-07-20 07:12] LABS: Calcium 9.1 mg/dL (8.6-10.3); Magnesium 2.2 mg/dL (1.9-2.7); Potassium 4.7 mmol/L (3.5-5.0); eGFR CKD-EPI 64.7 (>60)
[2022-07-20] MEDS: Mometasone/Formoter 200/5 MDI INH SCH ×2 (07:21→19:44)
[2022-07-20] MEDS: Albuterol 2.5mg/3 ml (0.083%) NEB.SOLN INH SCH ×2 (07:50→19:45)
[2022-07-20] MEDS: CMCS:Epleronone 25 mg TAB (NF) PO SCH (09:50)
[2022-07-20] MEDS: Heparin DRIP 25,000 UNITS BAG 25,000 UNITS/500 ML BAG IV SCH (12:17)
[2022-07-20] MEDS: Heparin 5000 UNITS/ML 1 mL VIAL IV PRN (18:29)
[2022-07-21 06:54] LABS: ABS Eosinophils 0.3 10^3/ul (0-0.6); ABS Lymphocytes 2.1 10^3/ul (1.0-4.8); ABS Monocytes 1.1 10^3/ul (0-0.8); ABS Neutrophils 5.6 10^3/ul (1.5-7.7); Eosinophil % 3.1 %; Hematocrit 41 % (35-47); Hemoglobin 13.2 g/dL (12.0-16.0); Lymphocyte % 23.5 %; Mean Corpuscular HGB Conc 33 g/dL (31-36); Mean Corpuscular Hemoglobin 29 pg (27-31); Mean Corpuscular Volume 90 fL (80-97); Mean Platelet Volume 9.2 fL (7.4-10.4); Platelet Count 217 10^3/uL (150-450); Red Blood Count 4.48 10^6 /uL (3.70-4.87); Red Cell Distribution Width 14 % (10-15); White Blood Count 9.1 10^3/uL (3.5-10.8)
[2022-07-21] MEDS: Albuterol 2.5mg/3 ml (0.083%) NEB.SOLN INH SCH ×2 (07:49→19:31)
[2022-07-21] MEDS: Mometasone/Formoter 200/5 MDI INH SCH ×2 (07:49→19:31)
[2022-07-21] MEDS: Heparin DRIP 25,000 UNITS BAG 25,000 UNITS/500 ML BAG IV SCH (09:21)
[2022-07-21] MEDS: CMCS:Epleronone 25 mg TAB (NF) PO SCH (09:27)
[2022-07-22 06:29] LABS: ABS Eosinophils 0.3 10^3/ul (0-0.6); ABS Lymphocytes 1.7 10^3/ul (1.0-4.8); Eosinophil % 4.9 %; Hematocrit 39 % (35-47); Hemoglobin 12.8 g/dL (12.0-16.0); Lymphocyte % 24.7 %; Mean Corpuscular HGB Conc 33 g/dL (31-36); Mean Corpuscular Hemoglobin 29 pg (27-31); Mean Corpuscular Volume 90 fL (80-97); Mean Platelet Volume 9.1 fL (7.4-10.4); Nucleated Red Blood Cells % 0.1; Platelet Count 204 10^3/uL (150-450); Red Blood Count 4.37 10^6 /uL (3.70-4.87); Red Cell Distribution Width 13 % (10-15); White Blood Count 7.1 10^3/uL (3.5-10.8)
[2022-07-22 06:56] LABS: eGFR CKD-EPI 63.8 (>60)
[2022-07-22] MEDS: Mometasone/Formoter 200/5 MDI INH SCH ×2 (06:56→19:51)
[2022-07-22] MEDS: Albuterol 2.5mg/3 ml (0.083%) NEB.SOLN INH SCH ×2 (06:59→19:51)
[2022-07-22] MEDS: Heparin DRIP 25,000 UNITS BAG 25,000 UNITS/500 ML BAG IV SCH (10:15)
[2022-07-22] MEDS: CMCS:Epleronone 25 mg TAB (NF) PO SCH (10:23)
[2022-07-22] MEDS: Heparin 5000 UNITS/ML 1 mL VIAL IV PRN (16:16)
[2022-07-23 06:13] LABS: ABS Eosinophils 0.4 10^3/ul (0-0.6); ABS Lymphocytes 1.9 10^3/ul (1.0-4.8); ABS Neutrophils 4.2 10^3/ul (1.5-7.7); Eosinophil % 5.6 %; Hematocrit 38 % (35-47); Hemoglobin 12.6 g/dL (12.0-16.0); Lymphocyte % 25.1 %; Mean Corpuscular HGB Conc 33 g/dL (31-36); Mean Corpuscular Hemoglobin 30 pg (27-31); Mean Corpuscular Volume 90 fL (80-97); Mean Platelet Volume 9.8 fL (7.4-10.4); Nucleated Red Blood Cells % 0.1; Platelet Count 204 10^3/uL (150-450); Red Blood Count 4.27 10^6 /uL (3.70-4.87); Red Cell Distribution Width 13 % (10-15); White Blood Count 7.5 10^3/uL (3.5-10.8)
[2022-07-23] MEDS: Heparin DRIP 25,000 UNITS BAG 25,000 UNITS/500 ML BAG IV SCH (06:39)
[2022-07-23] MEDS: Albuterol 2.5mg/3 ml (0.083%) NEB.SOLN INH SCH ×2 (07:26→20:00)
[2022-07-23] MEDS: Mometasone/Formoter 200/5 MDI INH SCH ×2 (07:31→20:00)
[2022-07-23] MEDS: CMCS:Epleronone 25 mg TAB (NF) PO SCH (08:31)
[2022-07-23 10:54] LABS: INR 1.16 (0.89-1.11)
[2022-07-23] MEDS: Enoxaparin 100 MG/ML SYR SUBCUT SCH ×2 (12:23→21:06)
[2022-07-23] MEDS ORDERED: Warfarin per PHARMACY **NOTE FOLLOW UP SCH (17:00)
[2022-07-24 05:47] LABS: ABS Basophils 0.1 10^3/ul (0-0.2); ABS Eosinophils 0.4 10^3/ul (0-0.6); ABS Monocytes 0.9 10^3/ul (0-0.8); ABS Neutrophils 3.7 10^3/ul (1.5-7.7); Eosinophil % 5.5 %; Hematocrit 41 % (35-47); Hemoglobin 13.2 g/dL (12.0-16.0); Lymphocyte % 28.1 %; Mean Corpuscular HGB Conc 32 g/dL (31-36); Mean Corpuscular Hemoglobin 29 pg (27-31); Mean Corpuscular Volume 90 fL (80-97); Mean Platelet Volume 9.2 fL (7.4-10.4); Platelet Count 222 10^3/uL (150-450); Red Blood Count 4.55 10^6 /uL (3.70-4.87); Red Cell Distribution Width 14 % (10-15)
[2022-07-24 06:03] LABS: Activated Partial Thrombo Time 38.6 seconds (26.0-38.0); INR 1.16 (0.89-1.11)
[2022-07-24 06:14] LABS: eGFR CKD-EPI 70.3 (>60)
[2022-07-24] MEDS: Albuterol 2.5mg/3 ml (0.083%) NEB.SOLN INH SCH (07:48)
[2022-07-24] MEDS: Mometasone/Formoter 200/5 MDI INH SCH (07:48)
[2022-07-24 08:02] VITALS: BP 129/67
[2022-07-24] MEDS: CMCS:Epleronone 25 mg TAB (NF) PO SCH (09:25)
[2022-07-24] MEDS: Enoxaparin 100 MG/ML SYR SUBCUT SCH (12:16)
[2022-07-24] MEDS ORDERED: Warfarin DAILY REMINDER **NOTE FOLLOW UP SCH (17:00)
== END 2022-07-24 15:35 | disposition home health service (06) | DRG 663 ==
LOC: EDHOLD 22:16 → ED 22:16 → SUATTDRO 07-15 04:11 → EDHOLD 07-15 18:44 → MEDTELE 07-15 20:44 → SUATTDRO 07-17 18:14 → MEDTELE 07-19 10:48
PROVIDERS: ADMIT Internal Medicine; ATTEND Internal Medicine

== ENCOUNTER 2022-08-05 01:06 | Inpatient (IN) ==
[2022-08-05 02:56] LABS: INR 3.2 (0.89-1.11)
[2022-08-05 02:58] LABS: Hematocrit 20 % (35-47); Hemoglobin 6.1 g/dL (12.0-16.0); Mean Corpuscular HGB Conc 31 g/dL (31-36); Mean Corpuscular Hemoglobin 29 pg (27-31); Mean Corpuscular Volume 93 fL (80-97); Mean Platelet Volume 8.5 fL (7.4-10.4); Platelet Count 406 10^3/uL (150-450); Red Cell Distribution Width 16 % (10-15); White Blood Count 14.7 10^3/uL (3.5-10.8)
[2022-08-05 03:05] LABS: Urine Appearance Turbid; Urine Color Red
[2022-08-05 03:09] LABS: Urine Specific Gravity 1.025 (1.002-1.030)
[2022-08-05 03:16] LABS: Albumin 3.7 g/dL (3.2-5.2); Albumin/Globulin Ratio 1.7 (1-3); Calcium 9.2 mg/dL (8.6-10.3); Globulin 2.2 g/dL (2-4); Potassium 4.4 mmol/L (3.5-5.0); Total Bilirubin 0.9 mg/dL (0.2-1.0); Total Protein 5.9 g/dL (6.4-8.9); eGFR CKD-EPI 25.1 (>60)
[2022-08-05 03:22] LABS: Urine Bacteria 3+ (Absent); Urine Red Blood Cell 2+(6-10/hpf) (Absent); Urine Squamous Epithelial Cell Present (Absent); Urine White Blood Cell 2+(11-20/hpf) (Absent)
[2022-08-05 03:33] LABS: ABS Eosinophils 0.1 10^3/ul (0-0.6); ABS Lymphocytes 1.9 10^3/ul (1.0-4.8); ABS Monocytes 1.8 10^3/ul (0-0.8); ABS Neutrophils 10.8 10^3/ul (1.5-7.7); Eosinophil % 0.4 %; Lymphocyte % 13.1 %; Nucleated Red Blood Cells % 0.1
[2022-08-05] MEDS ORDERED: Morphine 4 MG/ML VIAL (1 ml) IV ONE (04:24)
[2022-08-05] MEDS ORDERED: Morphine 4 MG/ML VIAL (1 ml) ONE (04:25)
[2022-08-05] MEDS ORDERED: Albuterol 2.5mg/3 ml (0.083%) NEB.SOLN INH PRN (06:15)
[2022-08-05] MEDS ORDERED: Phytonadione Oral Solution 5 MG/25 ML UDC PO ONE (06:22)
[2022-08-05] MEDS ORDERED: Phytonadione SUBCUT/IM Adult 10 MG/ML AMP (IM or SQ not preferred route) SUBCUT ONE ×2 (06:22→08:00)
[2022-08-05] MEDS ORDERED: Albuterol HFA INHALER 8 gm MDI INH PRN (06:32)
[2022-08-05] MEDS: CMC:Epleronone 25 mg TAB (NF) PO SCH (08:00)
[2022-08-05] MEDS: Mometasone/Formoter 200/5 MDI INH SCH ×2 (09:08→20:30)
[2022-08-05] MEDS: NS 0.9% 1000 ml BAG 1,000 ML IV SCH (09:09)
[2022-08-05 11:24] LABS: Hematocrit 20 % (35-47); Hemoglobin 6.4 g/dL (12.0-16.0)
[2022-08-05 19:15] LABS: Hematocrit 27 % (35-47); Hemoglobin 8.3 g/dL (12.0-16.0)
[2022-08-05 22:28] LABS: Hematocrit 26 % (35-47); Hemoglobin 7.8 g/dL (12.0-16.0)
[2022-08-06] MEDS: NS 0.9% 1000 ml BAG 1,000 ML IV SCH ×2 (03:05→12:44)
[2022-08-06 04:34] LABS: ABS Eosinophils 0.2 10^3/ul (0-0.6); ABS Lymphocytes 1.3 10^3/ul (1.0-4.8); ABS Monocytes 1.4 10^3/ul (0-0.8); ABS Neutrophils 9.7 10^3/ul (1.5-7.7); Hematocrit 25 % (35-47); Hemoglobin 7.7 g/dL (12.0-16.0); Lymphocyte % 10.3 %; Mean Corpuscular HGB Conc 31 g/dL (31-36); Mean Corpuscular Hemoglobin 28 pg (27-31); Mean Corpuscular Volume 91 fL (80-97); Mean Platelet Volume 8.3 fL (7.4-10.4); Nucleated Red Blood Cells % 0.2; Platelet Count 354 10^3/uL (150-450); Red Blood Count 2.78 10^6 /uL (3.70-4.87); Red Cell Distribution Width 16 % (10-15); White Blood Count 12.6 10^3/uL (3.5-10.8)
[2022-08-06 04:40] LABS: INR 2.89 (0.89-1.11)
[2022-08-06 05:05] LABS: Calcium 8.7 mg/dL (8.6-10.3); Potassium 4.7 mmol/L (3.5-5.0); eGFR CKD-EPI 43.9 (>60)
[2022-08-06 06:37] LABS: Hematocrit 25 % (35-47); Hemoglobin 7.9 g/dL (12.0-16.0)
[2022-08-06] MEDS ORDERED: Phytonadione Oral Solution 5 MG/25 ML UDC PO ONE (08:26)
[2022-08-06] MEDS: Albuterol 2.5mg/3 ml (0.083%) NEB.SOLN INH SCH ×2 (08:38→20:59)
[2022-08-06] MEDS: Mometasone/Formoter 200/5 MDI INH SCH ×2 (08:40→21:01)
[2022-08-06 10:14] LABS: Hematocrit 25 % (35-47)
[2022-08-06] MEDS: CMC:Epleronone 25 mg TAB (NF) PO SCH (10:25)
[2022-08-06 17:15] LABS: Hematocrit 24 % (35-47); Hemoglobin 7.5 g/dL (12.0-16.0)
[2022-08-06] MEDS: Morphine 2 MG/ML SYRINGE IV PRN ×2 (17:32→22:29)
[2022-08-06] MEDS: Nitrofurantoin (monohydrate/macrocrystals) 100 mg CAP PO SCH (20:25)
[2022-08-07] MEDS: Morphine 2 MG/ML SYRINGE IV PRN ×4 (03:19→20:46)
[2022-08-07 06:10] LABS: ABS Eosinophils 0.2 10^3/ul (0-0.6); ABS Lymphocytes 1.1 10^3/ul (1.0-4.8); ABS Monocytes 1.1 10^3/ul (0-0.8); ABS Neutrophils 6.7 10^3/ul (1.5-7.7); Eosinophil % 2.6 %; Hematocrit 23 % (35-47); Hemoglobin 7.1 g/dL (12.0-16.0); Lymphocyte % 11.7 %; Mean Corpuscular HGB Conc 31 g/dL (31-36); Mean Corpuscular Hemoglobin 28 pg (27-31); Mean Corpuscular Volume 92 fL (80-97); Mean Platelet Volume 8.4 fL (7.4-10.4); Nucleated Red Blood Cells % 0.1; Platelet Count 340 10^3/uL (150-450); Red Blood Count 2.52 10^6 /uL (3.70-4.87); Red Cell Distribution Width 16 % (10-15); White Blood Count 9.2 10^3/uL (3.5-10.8)
[2022-08-07 06:17] LABS: INR 1.7 (0.89-1.11)
[2022-08-07 06:37] LABS: Calcium 8.6 mg/dL (8.6-10.3); Potassium 4.4 mmol/L (3.5-5.0); eGFR CKD-EPI 50.7 (>60)
[2022-08-07] MEDS: Mometasone/Formoter 200/5 MDI INH SCH ×2 (08:38→20:05)
[2022-08-07] MEDS: Albuterol 2.5mg/3 ml (0.083%) NEB.SOLN INH SCH ×2 (08:39→20:05)
[2022-08-07] MEDS: Nitrofurantoin (monohydrate/macrocrystals) 100 mg CAP PO SCH ×2 (09:17→22:45)
[2022-08-07] MEDS: CMC:Epleronone 25 mg TAB (NF) PO SCH (09:18)
[2022-08-07] MEDS: Magnesium Hydroxide LIQ 30 ML UDC PO PRN ×2 (12:19→20:43)
[2022-08-07] MEDS: NS 0.9% 1000 ml BAG 1,000 ML IV SCH (12:22)
[2022-08-07] MEDS ORDERED: oxyCODONE/Acetamin 5/325 mg TAB PO PRN (16:52)
[2022-08-07] MEDS: Senna TAB 8.6 mg TAB PO PRN (20:43)
[2022-08-08] MEDS: NS 0.9% 1000 ml BAG 1,000 ML IV SCH ×2 (01:34→23:11)
[2022-08-08 05:51] LABS: ABS Eosinophils 0.4 10^3/ul (0-0.6); ABS Lymphocytes 1.1 10^3/ul (1.0-4.8); Eosinophil % 5.7 %; Hematocrit 24 % (35-47); Hemoglobin 7.5 g/dL (12.0-16.0); Lymphocyte % 15.2 %; Mean Corpuscular HGB Conc 32 g/dL (31-36); Mean Corpuscular Hemoglobin 29 pg (27-31); Mean Corpuscular Volume 93 fL (80-97); Mean Platelet Volume 8.3 fL (7.4-10.4); Nucleated Red Blood Cells % 0.1; Platelet Count 341 10^3/uL (150-450); Red Blood Count 2.55 10^6 /uL (3.70-4.87); Red Cell Distribution Width 16 % (10-15); White Blood Count 7.6 10^3/uL (3.5-10.8)
[2022-08-08 05:56] LABS: INR 1.37 (0.89-1.11)
[2022-08-08 06:09] LABS: Calcium 8.6 mg/dL (8.6-10.3); Potassium 4.9 mmol/L (3.5-5.0); eGFR CKD-EPI 51.9 (>60)
[2022-08-08] MEDS: Mometasone/Formoter 200/5 MDI INH SCH ×2 (07:54→21:17)
[2022-08-08] MEDS: Albuterol 2.5mg/3 ml (0.083%) NEB.SOLN INH SCH ×2 (07:54→21:18)
[2022-08-08] MEDS: Morphine 2 MG/ML SYRINGE IV PRN (08:35)
[2022-08-08] MEDS: Nitrofurantoin (monohydrate/macrocrystals) 100 mg CAP PO SCH ×2 (08:53→22:06)
[2022-08-08] MEDS: Polyethylene Glycol 3350 17 GM PACKET PO SCH (08:53)
[2022-08-08] MEDS: CMC:Epleronone 25 mg TAB (NF) PO SCH (08:53)
[2022-08-08] MEDS ORDERED: HYDROmorphone 1 MG/1 ML SYRINGE IV PRN (13:18)
[2022-08-08] MEDS ORDERED: Prochlorperazine 5 mg/ml 2 ml VIAL (10 mg) IV PRN (13:18)
[2022-08-08] MEDS ORDERED: Naloxone 0.4 mg VIAL 0.4 mg/ml 1 ml VIAL IV PRN (13:18)
[2022-08-08] MEDS ORDERED: cefTRIAXone 1 gm/50 mL D5W 0 GM/0 ML BAG IV ONE (13:44)
[2022-08-08] MEDS ORDERED: fentaNYL 100 mcg/2 ml 50 MCG/ML VIAL ONE (13:50)
[2022-08-08] MEDS ORDERED: Lidocaine 2% PF 5 ML VIAL ONE (13:50)
[2022-08-08] MEDS ORDERED: Propofol 10 MG/ML 20 ML BTL ONE (13:50)
[2022-08-08] MEDS ORDERED: Ondansetron 4 mg VIAL 2 MG/ML 2 ml VIAL ONE (14:21)
[2022-08-08] MEDS ORDERED: Acetaminophen IV 1 GM/100ML 1,000 MG/100 ML BAG IV ONE (14:26)
[2022-08-08 17:12] LABS: Hematocrit 26 % (35-47); Hemoglobin 7.8 g/dL (12.0-16.0); Mean Platelet Volume 8.1 fL (7.4-10.4); Platelet Count 356 10^3/uL (150-450)
[2022-08-09 05:27] LABS: ABS Basophils 0.1 10^3/ul (0-0.2); ABS Eosinophils 0.4 10^3/ul (0-0.6); ABS Lymphocytes 1.1 10^3/ul (1.0-4.8); ABS Monocytes 0.9 10^3/ul (0-0.8); ABS Neutrophils 5.9 10^3/ul (1.5-7.7); Eosinophil % 4.8 %; Hematocrit 24 % (35-47); Hemoglobin 7.4 g/dL (12.0-16.0); Lymphocyte % 13.3 %; Mean Corpuscular HGB Conc 31 g/dL (31-36); Mean Corpuscular Hemoglobin 29 pg (27-31); Mean Corpuscular Volume 93 fL (80-97); Nucleated Red Blood Cells % 0.1; Platelet Count 327 10^3/uL (150-450); Red Blood Count 2.59 10^6 /uL (3.70-4.87); Red Cell Distribution Width 15 % (10-15); White Blood Count 8.3 10^3/uL (3.5-10.8)
[2022-08-09 06:17] LABS: Blood Urea Nitrogen 25 mg/dL (6-24); CO2 Carbon Dioxide 26 mmol/L (22-32); Calcium 8.5 mg/dL (8.6-10.3); Glucose 89 mg/dL (70-100); Potassium 4.6 mmol/L (3.5-5.0); Sodium 142 mmol/L (135-145); eGFR CKD-EPI 61.4 (>60)
[2022-08-09 06:18] LABS: Chloride 116 mmol/L (101-111)
[2022-08-09] MEDS: Albuterol 2.5mg/3 ml (0.083%) NEB.SOLN INH SCH ×2 (06:47→19:34)
[2022-08-09] MEDS: Mometasone/Formoter 200/5 MDI INH SCH ×2 (06:47→19:34)
[2022-08-09] MEDS: Nitrofurantoin (monohydrate/macrocrystals) 100 mg CAP PO SCH ×2 (11:18→21:26)
[2022-08-09] MEDS: Polyethylene Glycol 3350 17 GM PACKET PO SCH (11:19)
[2022-08-09] MEDS: CMC:Epleronone 25 mg TAB (NF) PO SCH (11:19)
[2022-08-09] MEDS: NS 0.9% 1000 ml BAG 1,000 ML IV SCH (14:50)
[2022-08-09] MEDS: Senna TAB 8.6 mg TAB PO PRN (21:27)
[2022-08-09] MEDS: Magnesium Hydroxide LIQ 30 ML UDC PO PRN (21:27)
[2022-08-10 04:53] LABS: ABS Basophils 0.1 10^3/ul (0-0.2); ABS Eosinophils 0.3 10^3/ul (0-0.6); ABS Lymphocytes 1.2 10^3/ul (1.0-4.8); ABS Monocytes 1.1 10^3/ul (0-0.8); ABS Neutrophils 6.8 10^3/ul (1.5-7.7); Eosinophil % 3.5 %; Hematocrit 25 % (35-47); Hemoglobin 7.7 g/dL (12.0-16.0); Mean Corpuscular HGB Conc 31 g/dL (31-36); Mean Corpuscular Hemoglobin 28 pg (27-31); Mean Corpuscular Volume 93 fL (80-97); Mean Platelet Volume 8.1 fL (7.4-10.4); Nucleated Red Blood Cells % 0.1; Platelet Count 347 10^3/uL (150-450); Red Blood Count 2.71 10^6 /uL (3.70-4.87); Red Cell Distribution Width 16 % (10-15); White Blood Count 9.5 10^3/uL (3.5-10.8)
[2022-08-10 05:23] LABS: Anion Gap 4 mmol/L (2-11); Blood Urea Nitrogen 25 mg/dL (6-24); CO2 Carbon Dioxide 26 mmol/L (22-32); Calcium 8.7 mg/dL (8.6-10.3); Chloride 111 mmol/L (101-111); Glucose 101 mg/dL (70-100); Potassium 4.4 mmol/L (3.5-5.0); Sodium 141 mmol/L (135-145); eGFR CKD-EPI 59.1 (>60)
[2022-08-10] MEDS: Albuterol 2.5mg/3 ml (0.083%) NEB.SOLN INH SCH ×2 (07:15→19:17)
[2022-08-10] MEDS: Mometasone/Formoter 200/5 MDI INH SCH ×2 (07:15→19:17)
[2022-08-10] MEDS ORDERED: Furosemide 40 mg/4 ml IV VIAL IV ONE (07:45)
[2022-08-10] MEDS: Polyethylene Glycol 3350 17 GM PACKET PO SCH (08:35)
[2022-08-10] MEDS: Nitrofurantoin (monohydrate/macrocrystals) 100 mg CAP PO SCH ×2 (08:36→21:02)
[2022-08-10] MEDS: NS 0.9% 1000 ml BAG 1,000 ML IV SCH (08:36)
[2022-08-10] MEDS: CMC:Epleronone 25 mg TAB (NF) PO SCH (08:36)
[2022-08-10 18:33] LABS: Total Iron Binding Capacity 333 mcg/dL (250-450); Transferrin 238 mg/dL (203-362)
[2022-08-10 18:44] LABS: % Iron Saturation 6 % (15-55); Iron < 20 ug/dL (50-212); Unsaturated Iron Binding 313 ug/dL
[2022-08-10 18:53] LABS: Ferritin 44.9 ng/mL (11-307)
[2022-08-11 06:19] LABS: ABS Eosinophils 0.2 10^3/ul (0-0.6); ABS Lymphocytes 0.8 10^3/ul (1.0-4.8); ABS Neutrophils 5.5 10^3/ul (1.5-7.7); Eosinophil % 3.2 %; Hematocrit 24 % (35-47); Hemoglobin 7.5 g/dL (12.0-16.0); Mean Corpuscular HGB Conc 31 g/dL (31-36); Mean Corpuscular Hemoglobin 28 pg (27-31); Mean Corpuscular Volume 92 fL (80-97); Mean Platelet Volume 8.1 fL (7.4-10.4); Platelet Count 322 10^3/uL (150-450); Red Blood Count 2.65 10^6 /uL (3.70-4.87); Red Cell Distribution Width 15 % (10-15); White Blood Count 7.6 10^3/uL (3.5-10.8)
[2022-08-11 06:45] LABS: Calcium 8.6 mg/dL (8.6-10.3); Magnesium 1.8 mg/dL (1.9-2.7); Potassium 4.2 mmol/L (3.5-5.0); eGFR CKD-EPI 67.4 (>60)
[2022-08-11] MEDS: Albuterol 2.5mg/3 ml (0.083%) NEB.SOLN INH SCH ×2 (07:56→19:33)
[2022-08-11] MEDS: Mometasone/Formoter 200/5 MDI INH SCH ×2 (07:56→19:33)
[2022-08-11] MEDS: Iron Sucrose 200 MG in NS 0.9% 100 ml BAG 100 ML IVPB SCH (08:15)
[2022-08-11] MEDS: CMC:Epleronone 25 mg TAB (NF) PO SCH (08:15)
[2022-08-11] MEDS: Nitrofurantoin (monohydrate/macrocrystals) 100 mg CAP PO SCH ×2 (08:16→21:30)
[2022-08-11] MEDS: Polyethylene Glycol 3350 17 GM PACKET PO SCH (09:39)
[2022-08-11] MEDS ORDERED: Furosemide 40 mg/4 ml IV VIAL IV SLOW PU ONE (09:59)
[2022-08-11] MEDS: Senna TAB 8.6 mg TAB PO PRN (21:32)
[2022-08-12 06:11] LABS: ABS Basophils 0.1 10^3/ul (0-0.2); ABS Eosinophils 0.3 10^3/ul (0-0.6); ABS Lymphocytes 1.2 10^3/ul (1.0-4.8); ABS Neutrophils 4.2 10^3/ul (1.5-7.7); Eosinophil % 4.1 %; Hematocrit 23 % (35-47); Lymphocyte % 17.5 %; Mean Corpuscular HGB Conc 31 g/dL (31-36); Mean Corpuscular Hemoglobin 28 pg (27-31); Mean Corpuscular Volume 91 fL (80-97); Mean Platelet Volume 8.3 fL (7.4-10.4); Nucleated Red Blood Cells % 0.1; Platelet Count 290 10^3/uL (150-450); Red Cell Distribution Width 15 % (10-15); White Blood Count 6.8 10^3/uL (3.5-10.8)
[2022-08-12 06:52] LABS: Calcium 8.4 mg/dL (8.6-10.3); Magnesium 1.8 mg/dL (1.9-2.7); eGFR CKD-EPI 68.4 (>60)
[2022-08-12] MEDS: Mometasone/Formoter 200/5 MDI INH SCH ×2 (08:57→19:26)
[2022-08-12] MEDS: Iron Sucrose 200 MG in NS 0.9% 100 ml BAG 100 ML IVPB SCH (08:57)
[2022-08-12] MEDS: Polyethylene Glycol 3350 17 GM PACKET PO SCH (08:57)
[2022-08-12] MEDS: Nitrofurantoin (monohydrate/macrocrystals) 100 mg CAP PO SCH ×2 (08:58→22:21)
[2022-08-12] MEDS: CMC:Epleronone 25 mg TAB (NF) PO SCH (08:58)
[2022-08-12] MEDS: Albuterol 2.5mg/3 ml (0.083%) NEB.SOLN INH SCH ×2 (10:19→19:26)
[2022-08-12] MEDS ORDERED: Furosemide 20 mg/2 ml IV VIAL IV ONE (14:16)
[2022-08-13 06:18] LABS: ABS Basophils 0.1 10^3/ul (0-0.2); ABS Eosinophils 0.4 10^3/ul (0-0.6); ABS Lymphocytes 1.4 10^3/ul (1.0-4.8); ABS Monocytes 1.2 10^3/ul (0-0.8); ABS Neutrophils 4.7 10^3/ul (1.5-7.7); Eosinophil % 4.8 %; Hematocrit 27 % (35-47); Hemoglobin 8.8 g/dL (12.0-16.0); Lymphocyte % 17.7 %; Mean Corpuscular HGB Conc 32 g/dL (31-36); Mean Corpuscular Hemoglobin 29 pg (27-31); Mean Corpuscular Volume 90 fL (80-97); Mean Platelet Volume 8.2 fL (7.4-10.4); Nucleated Red Blood Cells % 0.2; Platelet Count 270 10^3/uL (150-450); Red Blood Count 3.03 10^6 /uL (3.70-4.87); Red Cell Distribution Width 15 % (10-15); White Blood Count 7.7 10^3/uL (3.5-10.8)
[2022-08-13 06:36] LABS: Calcium 8.2 mg/dL (8.6-10.3); Magnesium 1.7 mg/dL (1.9-2.7); Potassium 3.8 mmol/L (3.5-5.0)
[2022-08-13] MEDS: Albuterol 2.5mg/3 ml (0.083%) NEB.SOLN INH SCH ×2 (07:23→19:23)
[2022-08-13] MEDS: Mometasone/Formoter 200/5 MDI INH SCH ×2 (07:32→19:23)
[2022-08-13] MEDS: Polyethylene Glycol 3350 17 GM PACKET PO SCH (09:26)
[2022-08-13] MEDS: Nitrofurantoin (monohydrate/macrocrystals) 100 mg CAP PO SCH ×2 (09:27→22:12)
[2022-08-13] MEDS: CMC:Epleronone 25 mg TAB (NF) PO SCH (09:28)
[2022-08-13] MEDS: Iron Sucrose 200 MG in NS 0.9% 100 ml BAG 100 ML IVPB SCH (09:31)
[2022-08-14] MEDS ORDERED: Albuterol 2.5mg/3 ml (0.083%) NEB.SOLN INH PRN (03:52)
[2022-08-14] MEDS: Albuterol 2.5mg/3 ml (0.083%) NEB.SOLN INH SCH ×2 (04:04→08:08)
[2022-08-14 05:21] LABS: ABS Eosinophils 0.5 10^3/ul (0-0.6); ABS Lymphocytes 1.5 10^3/ul (1.0-4.8); ABS Monocytes 1.4 10^3/ul (0-0.8); ABS Neutrophils 5.1 10^3/ul (1.5-7.7); Eosinophil % 5.5 %; Hematocrit 29 % (35-47); Hemoglobin 9.1 g/dL (12.0-16.0); Lymphocyte % 17.3 %; Mean Corpuscular HGB Conc 32 g/dL (31-36); Mean Corpuscular Hemoglobin 29 pg (27-31); Mean Corpuscular Volume 91 fL (80-97); Mean Platelet Volume 8.1 fL (7.4-10.4); Nucleated Red Blood Cells % 0.2; Platelet Count 282 10^3/uL (150-450); Red Blood Count 3.17 10^6 /uL (3.70-4.87); Red Cell Distribution Width 16 % (10-15); White Blood Count 8.5 10^3/uL (3.5-10.8)
[2022-08-14 05:52] LABS: Blood Urea Nitrogen 15 mg/dL (6-24); CO2 Carbon Dioxide 30 mmol/L (22-32); Calcium 8.7 mg/dL (8.6-10.3); Chloride 110 mmol/L (101-111); Glucose 100 mg/dL (70-100); Magnesium 1.8 mg/dL (1.9-2.7); Potassium 4.1 mmol/L (3.5-5.0); Sodium 140 mmol/L (135-145); eGFR CKD-EPI 67.4 (>60)
[2022-08-14] MEDS ORDERED: Magnesium Sulfate IV 1GM/100ML 1 GM/100 ML BAG IV ONE (07:36)
[2022-08-14] MEDS: Mometasone/Formoter 200/5 MDI INH SCH (07:37)
[2022-08-14] MEDS: Iron Sucrose 200 MG in NS 0.9% 100 ml BAG 100 ML IVPB SCH (09:56)
[2022-08-14] MEDS: Polyethylene Glycol 3350 17 GM PACKET PO SCH (10:43)
[2022-08-14] MEDS: Nitrofurantoin (monohydrate/macrocrystals) 100 mg CAP PO SCH (10:43)
[2022-08-14] MEDS: CMC:Epleronone 25 mg TAB (NF) PO SCH (10:43)
[2022-08-14 11:18] VITALS: BP 120/76
== END 2022-08-14 15:45 | disposition home or self-care (01) | DRG 982 ==
LOC: EDHOLD 01:06 → ED 01:06 → SUATTDRO 05:52 → SSU 12:00 → EDHOLD 17:56 → SUATTDRO 08-06 17:23
PROVIDERS: ADMIT Internal Medicine; ATTEND Pediatrics